=== PATIENT | male | born 1990 | race Caucasian/White ===

== ENCOUNTER 2020-12-10 18:30 | Observation (INO) | payer BC, SELFPAY ==
[2020-12-10 18:34] VITALS: BP 143/86; PULSE 113; RESP 18; TEMP 37.2; O2SAT 97; BMI 30.8
--- NOTE | 2020-12-10 18:41 | XRR_ITS ---
PROCEDURE INFORMATION: Exam: XR Chest Exam date and time: 12/10/2020 6:43 PM Age: 30 years old Clinical indication: Other: Seizure TECHNIQUE: Imaging protocol: XR of the chest Views: 1 view. Total images: 1 COMPARISON: CT chest w con* [id number] 07/21/2017 9:32 PM FINDINGS: Lungs: Unremarkable. No consolidation. Pleural spaces: Unremarkable. No pleural effusion. No pneumothorax. Heart/Mediastinum: Unremarkable. No cardiomegaly. Bones/joints: Unremarkable. XR/XR chest 1V portable [id number] IMPRESSION: No acute findings.
--- NOTE | 2020-12-10 18:41 | ECG_ITS ---
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 Measurements Intervals [place] Rate: 114 P: 36 ME: 170 QRS: 21 QRSD: 86 T: 32 QT: 339 QTc: 469 Interpretive Statements SINUS TACHYCARDIA Compared to ECG 07/21/2017 21:56:21 No significant changes Electronically Signed On 12-10-2020 19:25:07 INPATIENT SERVICES RN by Haja Choudhury M.D. [id number]
--- NOTE | 2020-12-10 18:41 | CTR_ITS ---
PROCEDURE INFORMATION: Exam: CT Head Without Contrast Exam date and time: 12/10/2020 7:17 PM Age: 30 years old Clinical indication: Other: Seizure TECHNIQUE: Imaging protocol: Computed tomography of the head without contrast. Total images: 207 Radiation optimization: All CT scans at this facility use at least one of these dose optimization techniques: automated exposure control; mA and/or kV adjustment per patient size (includes targeted exams where dose is matched to clinical indication); or iterative reconstruction. COMPARISON: CT head wo con* [id number] 07/21/2017 9:22 PM RADIATION DOSE METRICS: Total DLP (mGy-cm): 949.46 FINDINGS: Brain: Normal. No hemorrhage. Unremarkable white matter. No mass effect. Cerebral ventricles: No ventriculomegaly. Bones/joints: Suspected old right medial orbital wall fracture. 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 Paranasal sinuses: Visualized sinuses are unremarkable. No fluid levels. Mastoid air cells: Visualized mastoid air cells are well aerated. Soft tissues: Unremarkable. CT/CT head wo con* [id number] IMPRESSION: No evidence of active or acute intracranial pathologic process, hemorrhage, or trauma. Radiation Dose CTDIVOL = (mGy): DLP = 949.46 (mGy-cm)
[2020-12-10 19:38] LABS: Basophils % 0.2 %; Eosinophils % 0.2 %; Hematocrit 37.9 % (42.0-52.0); Hemoglobin 13.1 g/dL (11.7-16.6); Lymphocytes # 0.7 10^3/uL (0.8-4.8); Lymphocytes % 13.6 %; Mean Corpuscular HGB Conc 34.6 g/dL (30.0-36.0); Mean Corpuscular Hemoglobin 34.5 pg (28.0-34.0); Mean Corpuscular Volume 99.7 fL (80-94); Mean Platelet Volume 11.6 fL (7.4-10.4); Monocytes # 0.4 10^3/uL (0.2-0.9); Monocytes % 7.5 %; Neutrophils # 3.99 10^3/uL (1.8-7.7); Neutrophils % 78.3 %; Nucleated Red Blood Cells % 0 %; Platelet Count 111 10^3/cmm (130-400); Red Cell Distribution Width 15.9 % (12.1-15.1); White Blood Count 5.1 10^3/uL (4.0-10.0)
[2020-12-10] MEDS: folic acid 1 MG, multivitamin inj 10 ML, thiamine 100 MG in sodium chloride 0.9% 1,000 ML 252.8 MG IV (19:40)
[2020-12-10 19:58] LABS: Lactate (Lactic Acid level) 1.9 mmol/L (0.5-2.2)
[2020-12-10 20:08] LABS: Alanine Aminotransferase 67 U/L (0-41); Albumin Level 4.6 g/dL (3.5-5.2); Alkaline Phosphatase 202 IU/L (40-130); Blood Urea Nitrogen 13 mg/dL (6-20); C Reactive Protein 2.7 mg/L (0.0-4.9); Calcium 8.5 mg/dL (8.5-10.5); Carbon Dioxide 25 mmol/L (22-29); Chloride 92 mmol/L (98-107); Creatine Phosphokinase 176 U/L (39-308); Globulin 2.5 g/dL (1.3-4.6); Glomerular Filtration Rate 97.8 mL/min (90-130); Glucose 108 mg/dL (65-115); Lipase 47 U/L (13-60); Magnesium 1.2 mg/dL (1.7-2.3); Osmolality Calculated 277 mOsm/kg (285-295); Sodium 133 mmol/L (136-145); Thyroid Stimulating Hormone 2.74 uIU/mL (0.27-4.20); Total Bilirubin 1.5 mg/dL (0.15-1.2); Total Protein 7.1 g/dL (6.6-8.7)
[2020-12-10 20:09] LABS: Alcohol Level < 10 mg/dL (0-10)
[2020-12-10 20:10] LABS: Anion Gap 19.1 (5-19); Aspartate Amino Transferase 110 U/L (0-40); Potassium 3.1 mmol/L (3.5-5.1); Slide Review Slide Review Perform
[2020-12-10 20:18] LABS: Add Urine Microscopic? NO
[2020-12-10 20:20] LABS: Bilirubin Urine 1+ (Negative); Blood Urine Neg (Negative); Glucose Urine UA Norm (Normal); Ketones Urine Negative (Negative); Leukocyte Esterase Urine Negative (Negative); Nitrate Urine Negative (Negative); Protein Urine Neg (Negative); Urine Appearance Clear (CLEAR); Urine Color Yellow (Yellow); Urobilinogen Urine 4 mg/dL (Negative); pH Urine 7 (5-7)
[2020-12-10 20:28] LABS: Amphetamines Screen Urine Negative (Negative); Barbiturates Screen Urine Negative (Negative); Benzodiazepines Screen Urine Negative (Negative); Cocaine Screen Urine Negative (Negative); Opiate Screen Urine Negative (Negative); PCP Screen Urine Negative (Negative); THC Screen Urine Negative (Negative)
[2020-12-10 20:35] LABS: Ketone (Acetest) Serum Negative (Negative)
[2020-12-10 20:39] VITALS: BP 131/89; PULSE 87; O2SAT 98
--- NOTE | 2020-12-10 20:40 | P.HP_ITS ---
Providers/Chief Complaint Primary Care Provider: JIGNESH Baez Chief Complaint: SEIZURE History of Present Illness Dave Gaston is a 30 year old male with a history of daily alcohol intake was brought to the emergency department because patient had a seizure at the grocery store. Patient stated he woke up in an ambulance. He bit his tongue during the seizure, no urine or stool incontinence. Patient has no history of seizures. Reports drinking about 20 shots of hard liquor every day. He denied any history of alcohol withdrawal and stated there has been an instance where he did not drink for up to 7 days and did not experience any withdrawal symptoms. He stated his last alcohol drink was 4 days ago and he has been trying to quit drinking. His alcohol level in the ED was negative, ketones negative. Patient is hospitalized for further management of alcohol withdrawal seizures. Review of Systems Narrative: Except as documented, all other systems reviewed and negative Medications/Allergies Home Medications Medication Instructions Recorded Confirmed Last Taken Type No Known Home Medications 12/10/20 12/10/20 Unknown History Allergies Allergy/AdvReac Type Severity Reaction Status Date / Time No Known Allergies Allergy Verified 10/04/20 09:09 PFSH Acute PFSH: Medical History (Reviewed 12/10/20 @ 21:59 by Angelina Davalos MD, [facility] [place]) Anxiety Depression HTN (hypertension) Family History (Reviewed 12/10/20 @ 21:59 by Angelina Davalos MD, [facility] [place]) Father Alcoholic Other CAD (coronary artery disease) Cancer Social History (Reviewed 12/10/20 @ 21:59 by Angelina Davalos MD, [facility] [place]) Smoking and tobacco status: current every day smoker Alcohol intake: current Vitals/I&O/Wt Last Vital Signs Temp 98.9 F 12/10/20 18:34 Pulse 87 12/10/20 20:39 Resp 18 12/10/20 18:34 BP 131/89 12/10/20 20:39 Pulse Ox 98 12/10/20 20:39 Weight last 48 hrs Weight 97.522 kg Physical Exam Const: COMMON NORMALS: no acute distress, patient oriented x3 and well nourished HENMT: COMMON NORMALS: normocephalic, atraumatic, moist oral mucous membranes and oropharynx normal Eye: COMMON NORMALS: Equal, round and reactive pupils present, EOMs intact bilaterally, conjunctivae normal and no scleral icterus Neck/C-Spine: COMMON NORMALS: full ROM and no lymphadenopathy Lymph: LYMPHATIC: no lymphadenopathy noted Chest: COMMONS NORMALS: normal inspection of the chest CHEST: Yes Symmetrical chest wall rise Resp: COMMON NORMALS: normal respiratory effort, No retractions, No use of acc essory muscles and clear to auscultation bilaterally Cardio: COMMON NORMALS: regular rate, regular rhythm, S1 normal heart sound present, S2 normal heart sound present and No murmurs present (Cardio) GI: COMMON NORMALS: Normal to inspection, nondistended, normoactive bowel sounds present, Soft to palpation, non-tender, No hepatosplenomegaly present and no bruits : COMMON NORMALS: Yes no CVA tenderness Back/Pelvis: COMMON NORMALS: no thoracic nor lumbar tenderness and thoraco- lumbar ROM normal Extremity: COMMON NORMALS: normal to inspection, no clubbing, cyanosis or edema, no calf tenderness and no pedal edema Neuro: COMMON NORMALS: patient oriented x3, CN's II-XII intact bilaterally and no focal motor deficits Psych: COMMON NORMALS: Normal thought process present and cooperative APPEARANCE: Yes grossly normal Skin: COMMON NORMALS: no rashes or lesions noted, turgor normal and no jaundice Data : 12/10/20 19:33 12/10/20 19:33 A&P Assessment and plan (1) Alcohol withdrawal seizure: Status: Acute (2) Chronic alcohol dependence, continuous: Status: Acute (3) Hyponatremia: Status: Acute (4) Elevated LFTs: Status: Acute Additional A&P Information Placed under observation. IV hydration with normal saline/banana bag. Thiamine and folic acid supplementation. Initiate CIWA with Ativan as needed for alcohol withdrawal symptoms. Start oral Keppra for seizure prophylaxis. Hyponatremia likely alcohol induced. 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 Obtain liver ultrasound. Monitor blood chemistry, magnesium and phosphorus and replace as needed. Attestations Medical Necessity Statement*: Patient presented with alcohol withdrawal seizures. He needs to be hospitalized for monitoring and management of new onse t seizures. He is expected to spend less than 2 midnights. Coding Level of Care Code Acute Executive Chairman for [facility] Fwd Exam Comprehensive Diagnoses Alcohol withdrawal seizure F10.239; R56.9 Chronic alcohol dependence, continuous F10.20 Hyponatremia E87.1 Elevated LFTs R79.89
--- NOTE | 2020-12-10 21:54 | ED_ITS ---
HPI - Seizure General: Chief Complaint: Seizure Stated Complaint: SEIZURE Time Seen by Provider: 12/10/20 18:33 Source: patient and EMS Mode of arrival: EMS Limitations: no limitations History of Present Illness: HPI Narrative: Patient is a 30-year-old male with no prior history of seizures or any medical illness presents to the emergency department after a seizure episode. Patient is an alcoholic and drinks about 1/5 of whiskey every day until about 4 days ago. His daughter has been with him for the last 4 days that he did not want her to see him drinking so he has not drank since then. While he was at the store he had a seizure episode. He is back to his baseline. No fever, no prior head injuries. No difficulty breathing or chest pain. MD complaint: seizure Onset (ago): minute(s) (30) Description of Episode: tonic-clonic movement Duration of episode: 1 -: minutes(s) Witnessed: Yes - by Bystander Trauma: No Seizure History: No Place: Transfer To Possible Precipitating Event: alcohol withdrawal Associated symptoms: Deny chest pain, chills, confusion, cough, diaphoresis, fever(s), anorexia, malaise, rash, short of breath, syncope or weakness Treatments prior to arrival: none Review of Systems General: Reports: 10 or more systems reviewed and unremarkable except in HPI and below Const: Denies: fever(s), chills, malaise or diaphoresis Eyes: Denies: change in vision or blurry vision ENMT: Denies: throat pain, enlarged tonsils, odynophagia, hoarseness, mouth pain or swelling of lips/tongue Card: Denies: chest pain or syncope Resp: Denies: dyspnea, productive cough or non-productive cough GI: Denies: abdominal pain, nausea or vomiting : Denies: flank pain, dysuria, urinary frequency, urinary urgency or urinary hesitancy Musc: Denies: neck pain, back pain or extremity swelling Skin/Breast: Denies: rash, pruritus or erythema Neuro: Denies: confusion Endo: Denies: polyuria, polydipsia or tired all the time [facility] ED PFSH: Medical History Anxiety Depression HTN (hypertension) Family History Father Alcoholic Other CAD (coronary artery disease) Cancer Social History Smoking and tobacco status: current every day smoker Alcohol intake: current Physical Exam Const: COMMON NORMALS: no acute distress, average body habitus, patient oriented x3, no limitations, healthy appearing, alert and well nourished HENMT: COMMON NORMALS: normocephalic, atraumatic and moist oral mucous membranes HEAD & SCALP: normocephalic and atraumatic Eye: COMMON NORMALS: Equal, round and reactive pupils present, EOMs intact bilaterally, conjunctivae normal and no scleral icterus CONJUNCTIVA: Yes conjunctivae normal PUPIL: Yes Equal, round and reactive pupils present Neck/C-Spine: COMMON NORMALS: full ROM, supple, no meningeal signs, no JVD and No carotid bruits Chest: COMMONS NORMALS: normal inspection of the chest and normal palpation of entire chest wall Resp: COMMON NORMALS: normal respiratory effort, No retractions, No use of accessory muscles, clear to auscultation bilaterally and percussion normal AUSCULTATION: clear to auscultation bilaterally PERCUSSION: percussion normal Cardio: COMMON NORMALS: no JVD, regular rhythm, S1 normal heart sound present, S2 normal heart sound present, No gallops present (Cardio), No clicks present (Cardio), No murmurs present (Cardio), No rub (Cardio) and Peripheral pulses 2+ throughout RATE: tachycardic RHYTHM: regular rhythm HEART SOUNDS: S1 normal heart sound present and S2 normal heart sound present PERIPHERAL PULSES: Peripheral pulses 2+ throughout GI: COMMON NORMALS: Normal to inspection, nondistended, normoactive bowel sounds present, Soft to palpation, non-tender, No hepatosplenomegaly present, no masses and no bruits PALPATION: Yes Soft to palpation and Yes No hepatosplenomegaly present Extremity: COMMON NORMALS: normal to inspection, full ROM, capillary refill normal, no calf tenderness and no pedal edema Neuro: COMMON NORMALS: patient oriented x3 SENSORIUM/ORIENTATION: Yes alert MENINGEAL SIGNS: Yes no meningeal signs Skin: COMMON NORMALS: no rashes or lesions noted, no wounds, turgor normal, no jaundice, no petechiae and no mottling GENERAL SKIN EXAM: no rashes or lesions noted and turgor normal Course Consultations: Consultation #1: Discussed the patient with Dr. Mehta, hospitalist and he kindly accepted the patient to his service. Time: 20:30 Vital Signs: Vital signs: Vital Signs Temperature 98.9 F 12/10/20 18:34 Pulse Rate 87 12/10/20 20:39 Respiratory Rate 18 12/10/20 18:34 Blood Pressure 131/89 12/10/20 20:39 Pulse Oximetry 98 12/10/20 20:39 MDM - Seizure MDM Narrative: Medical decision making narrative: 30-year-old male who presents to the emergency department following an alcohol withdrawal seizure. Is a chronic alcoholic and has not drank for about 4 days because his daughter is with him. Because he is high risk he is admitted to the hospital for further evaluation and management. In the emergency department he had mild hyponatremia and hypokalemia as well as mild transaminitis and mildly elevated bilirubin. He is admitted for further evaluation and management. Medical Records: Attestation: I reviewed the patient's medical records. Lab Data: Attestation: I reviewed the patient's lab results. Labs: Lab Results 12/10/20 12/10/20 12/10/20 Range/Units 19:32 19:33 19:33 WBC 5.1 (4.0-10.0) 10^3/ uL RBC 3.80 L (4.1-5.3) 10^6/u L Hgb 13.1 (11.7-16.6) g/dL Hct 37.9 L (42.0-52.0) % MCV 99.7 H (80-94) fL MCH 34.5 H (28.0-34.0) pg MCHC 34.6 (30.0-36.0) g/dL RDW 15.9 H (12.1-15.1) % Plt Count 111 L (130-400) 10^3/c mm MPV 11.6 H (7.4-10.4) fL Neut % (Auto) 78.3 % Lymph % (Auto) 13.6 % [place] % (Auto) 7.5 % Eos % (Auto) 0.2 % Baso % (Auto) 0.2 % Neut # (Auto) 3.99 (1.8-7.7) 10^3/u L Lymph # (Auto) 0.7 L (0.8-4.8) 10^3/u L [place]y # (Auto) 0.4 (0.2-0.9) 10^3/u L Eos # (Auto) 0.0 (0.0-0.8) 10^3/u L Baso # (Auto) 0.0 (0.0-0.1) 10^3/u L Nucleated RBC % (a uto) 0 % Nucleated RBCs # 0.0 /100WBC Sodium 133 L (136-145) mmol/L Potassium 3.1 L (3.5-5.1) mmol/L Chloride 92 L (98-107) mmol/L Carbon Dioxide 25 (22-29) mmol/L Anion Gap 19.1 H (5-19) BUN 13 (6-20) mg/dL Creatinine 0.9 (0.7-1.2) mg/dL GFR Calculation 97.8 (90-130) mL/min Glucose 108 (65-115) mg/dL Calculated Osmolal ity 277 L (285-295) mOsm/k g Lactate (0.5-2.2) mmol/L Calcium 8.5 (8.5-10.5) mg/dL Magnesium 1.2 L (1.7-2.3) mg/dL Total Bilirubin 1.5 H (0.15-1.2) mg/dL AST 110 H (0-40) U/L ALT 67 H (0-41) U/L Alkaline Phosphata se 202 H (40-130) IU/L Creatine Kinase 176 (39-308) U/L C-Reactive Protein 2.7 (0.0-4.9) mg/L Total Protein 7.1 (6.6-8.7) g/dL Albumin 4.6 (3.5-5.2) g/dL Globulin 2.5 (1.3-4.6) g/dL Lipase 47 (13-60) U/L TSH 2.74 (0.27-4.20) uIU/ mL Urine Color (Yellow) Urine Appearance (CLEAR) Urine pH (5-7) Ur Specific Gravit y (1.005-1.030) Urine Protein (Negative) Urine Glucose (UA) (Normal) Urine Ketones (Negative) Urine Blood (Negative) Urine Nitrate (Negative) Urine Bilirubin (Negative) Urine Urobilinogen (Negative) mg/dL Ur Leukocyte Bety ase (Negative) Urine Opiates Scre en (Negative) ng/mL Ur Barbiturates Sc reen (Negative) ng/mL Ur Phencyclidine S crn (Negative) ng/mL Ur Amphetamines Sc reen (Negative) ng/mL U Benzodiazepines Scrn (Negative) ng/mL Urine Cocaine Scre en (Negative) ng/mL U Marijuana (THC) Screen (Negative) ng/mL Ethyl Alcohol < 10 (0-10) mg/dL Serum Ketones Negative (Negative) 12/10/20 12/10/20 12/10/20 Range/Units 19:33 19:58 19:58 WBC (4.0-10.0) 10^3/ uL RBC (4.1-5.3) 10^6/u L Hgb (11.7-16.6) g/dL Hct (42.0-52.0) % MCV (80-94) fL MCH (28.0-34.0) pg MCHC (30.0-36.0) g/dL RDW (12.1-15.1) % Plt Count (130-400) 10^3/c mm MPV (7.4-10.4) fL Neut % (Auto) % Lymph % (Auto) % [place] % (Auto) % Eos % (Auto) % Baso % (Auto) % Neut # (Auto) (1.8-7.7) 10^3/u L Lymph # (Auto) (0.8-4.8) 10^3/u L [place] # (Auto) (0.2-0.9) 10^3/u L Eos # (Auto) (0.0-0.8) 10^3/u L Baso # (Auto) (0.0-0.1) 10^3/u L Nucleated RBC % (a uto) % Nucleated RBCs # /100WBC Sodium (136-145) mmol/L Potassium (3.5-5.1) mmol/L Chloride (98-107) mmol/L Carbon Dioxide (22-29) mmol/L Anion Gap (5-19) BUN (6-20) mg/dL Creatinine (0.7-1.2) mg/dL GFR Calculation (90-130) mL/min Glucose (65-115) mg/dL Calculated Osmolal ity (285-295) mOsm/k g Lactate 1.9 (0.5-2.2) mmol/L Calcium (8.5-10.5) mg/dL Magnesium (1.7-2.3) mg/dL Total Bilirubin (0.15-1.2) mg/dL AST (0-40) U/L ALT (0-41) U/L Alkaline Phosphata se (40-130) IU/L Creatine Kinase (39-308) U/L C-Reactive Protein (0.0-4.9) mg/L Total Protein (6.6-8.7) g/dL Albumin (3.5-5.2) g/dL Globulin (1.3-4.6) g/dL Lipase (13-60) U/L TSH (0.27-4.20) uIU/ mL Urine Color Yellow (Yellow) Urine Appearance Clear (CLEAR) Urine pH 7 (5-7) Ur Specific Gravit y 1.000 L (1.005-1.030) Urine Protein Neg (Negative) Urine Glucose (UA) Norm (Normal) Urine Ketones Negative (Negative) Urine Blood Neg (Negative) Urine Nitrate Negative (Negative) Urine Bilirubin 1+ H (Negative) Urine Urobilinogen 4 H (Negative) mg/dL Ur Leukocyte Bety ase Negative (Negative) Urine Opiates Scre en Negative (Negative) ng/mL Ur Barbiturates Sc reen Negative (Negative) ng/mL Ur Phencyclidine S crn Negative (Negative) ng/mL Ur Amphetamines Sc reen Negative (Negative) ng/mL U Benzodiazepines Scrn Negative (Negative) ng/mL Urine Cocaine Scre en Negative (Negative) ng/mL U Marijuana (THC) Screen Negative (Negative) ng/mL Ethyl Alcohol (0-10) mg/dL Serum Ketones (Negative) Imaging Data^: CXR: Attestation: I personally reviewed and interpreted this imaging study as follows: Radiologist's impression: [address] [address] XRay Report Signed Patient: Dave Gaston #: [id number] : 1990Acct#:[id number] Age/Sex: 30 / MADM Date: 12/10/20 Loc: ERRoom/Bed: Attending Dr: Ordering Provider/Ordering MD: Angelina Davalos MD, [facility] Date of Service: 12/10/20 Procedure(s): XR chest 1V portable [id number] Accession Number(s): [id number] Report Number: [id number] PROCEDURE INFORMATION: Exam: XR Chest Exam date and time: 12/10/2020 6:43 PM Age: 30 years old Clinical indication: Other: Seizure TECHNIQUE: Imaging protocol: XR of the chest Views: 1 view. Total images: 1 COMPARISON: CT chest w con* [id number] 07/21/2017 9:32 PM FINDINGS: Lungs: Unremarkable. No consolidation. Pleural spaces: Unremarkable. No pleural effusion. No pneumothorax. Heart/Mediastinum: Unremarkable. No cardiomegaly. Bones/joints: Unremarkable. XR/XR chest 1V portable [id number] IMPRESSION: No acute findings. Dictated By:Richard Silvestre Signed By:Gabino Silvestre Date/Time:12/10/201913 DD/ 12 CT Head: Attestation: I personally reviewed and interpreted this imaging study as follows: Radiologist's impression: [address] [address] [address] Scan Report Signed Patient: Dave Gaston #: [id number] : 1990Acct#:[id number] Age/Sex: 30 / MADM Date: 12/10/20 Loc: ERRoom/Bed: Attending Dr: Ordering Provider/Ordering MD: Angelina Davalos MD, [facility] Date of Service: 12/10/20 Procedure(s): CT head wo con* [id number] Accession Number(s): [id number] Report Number: [id number] PROCEDURE INFORMATION: Exam: CT Head Without Contrast Exam date and time: 12/10/2020 7:17 PM Age: 30 years old Clinical indication: Other: Seizure TECHNIQUE: Imaging protocol: Computed tomography of the head without contrast. Total images: 207 Radiation optimization: All CT scans at this facility use at least one of these dose optimization techniques: automated exposure control; mA and/or kV adjustment per patient size (includes targeted exams where dose is matched to clinical indication); or iterative reconstruction. COMPARISON: CT head wo con* [id number] 07/21/2017 9:22 PM RADIATION DOSE METRICS: Total DLP (mGy-cm): 949.46 FINDINGS: Brain: Normal. No hemorrhage. Unremarkable white matter. No mass effect. Cerebral ventricles: No ventriculomegaly. Bones/joints: Suspected old right medial orbital wall fracture. 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 Paranasal sinuses: Visualized sinuses are unremarkable. No fluid levels. Mastoid air cells: Visualized mastoid air cells are well aerated. Soft tissues: Unremarkable. CT/CT head wo con* [id number] IMPRESSION: No evidence of active or acute intracranial pathologic process, hemorrhage, or trauma. Radiation Dose CTDIVOL = (mGy): DLP = 949.46 (mGy-cm) Dictated By:Richard Silvestre Signed By:Richard SilvestreSignjay Date/Time:12/10/201946 DD/ 44 EKG Data^: EKG 1: Attestation: I personally reviewed and interpreted this EKG as follows: EKG interpretation date: 12/10/20 EKG interpretation time: 19:03 Interpretation: Sinus tachycardia Heart rate 114 bpm Normal axis. No ST changes. Discharge Plan Discharge Patient Disposition: Placed in Observation Admit Provider: Pramod Mehta Clinical Impression: Chronic alcohol dependence, continuous, Hyponatremia, Elevated LFTs, Acute hypokalemia Alcohol withdrawal seizure Qualifiers: Complication of substance-induced condition: uncomplicated Qualified Code(s): F10.230 - Alcohol dependence with withdrawal, uncomplicated Coding Level of Care Code ED [employer] Specialist for [employer]
[2020-12-10 22:00] VITALS: BP 151/104; PULSE 92; RESP 18; O2SAT 98
[2020-12-10] MEDS: famotidine 20 mg/2 mL INJ IVP (23:06)
[2020-12-10 23:10] VITALS: BP 140/97; PULSE 95; RESP 18; TEMP 36.9; O2SAT 97
[2020-12-10] MEDS: enoxaparin 40 mg/0.4 mL Syringe SUBCUT (23:57)
[2020-12-11] VITALS (7 sets, daily range): BP systolic 120–162; BP diastolic 74–99; PULSE 91–107; RESP 17–18; TEMP 36.6–37.2; O2SAT 94–98
[2020-12-11 07:13] LABS: Basophils % 0.3 %; Eosinophils % 0.5 %; Hematocrit 33.6 % (42.0-52.0); Hemoglobin 11.6 g/dL (11.7-16.6); Lymphocytes # 1.2 10^3/uL (0.8-4.8); Lymphocytes % 31.1 %; Mean Corpuscular HGB Conc 34.5 g/dL (30.0-36.0); Mean Corpuscular Hemoglobin 35.2 pg (28.0-34.0); Mean Corpuscular Volume 101.8 fL (80-94); Mean Platelet Volume 12.2 fL (7.4-10.4); Monocytes # 0.4 10^3/uL (0.2-0.9); Monocytes % 10.3 %; Neutrophils # 2.19 10^3/uL (1.8-7.7); Neutrophils % 57.8 %; Nucleated Red Blood Cells % 0 %; Platelet Count 115 10^3/cmm (130-400); Red Cell Distribution Width 15.9 % (12.1-15.1); White Blood Count 3.8 10^3/uL (4.0-10.0)
[2020-12-11 07:44] LABS: Anion Gap 14.6 (5-19); Blood Urea Nitrogen 10 mg/dL (6-20); Calcium 8.4 mg/dL (8.5-10.5); Carbon Dioxide 28 mmol/L (22-29); Chloride 96 mmol/L (98-107); Chol HDL Ratio 3.28 mg/dL (1.0-5.00); Cholesterol 141 mg/dL (0-200); Glucose 94 mg/dL (65-115); HDL Cholesterol 43 mg/dL (60-100); LDL Cholesterol Calculated 72 mg/dL (50-129); LDL HDL Ratio 1.67 RATIO (0.00-3.22); Magnesium 1.2 mg/dL (1.7-2.3); Osmolality Calculated 281 mOsm/kg (285-295); Phosphorus 2.5 mg/dL (2.5-4.5); Sodium 136 mmol/L (136-145); Thyroid Stimulating Hormone 2.56 uIU/mL (0.27-4.20); Triglycerides 129 mg/dL (0-150)
[2020-12-11 07:48] LABS: Potassium 2.6 mmol/L (3.5-5.1)
[2020-12-11] MEDS: folic acid 1 mg Tablet PO (08:13)
[2020-12-11] MEDS: thiamine 100 mg Tablet PO (08:13)
[2020-12-11] MEDS: multivitamin therapeutic Tablet 1 TAB PO (08:13)
[2020-12-11] MEDS: levETIRAcetam 500 mg Tablet PO ×2 (08:13→18:08)
[2020-12-11] MEDS: potassium chloride ER 20 mEq Tablet 40 MEQ PO ×2 (08:14→18:34)
[2020-12-11 08:32] LABS: Estmated Average Glucose 85; Hemoglobin A1C 4.6 % (4.0-6.0)
[2020-12-11] MEDS: magnesium sulfate premix 4 GM/100 ML PREMIX IV (09:02)
[2020-12-11] MEDS: famotidine 20 mg/2 mL INJ IVP (10:15)
[2020-12-11 17:59] LABS: Alanine Aminotransferase 56 U/L (0-41); Albumin Level 4.5 g/dL (3.5-5.2); Alkaline Phosphatase 172 IU/L (40-130); Aspartate Amino Transferase 96 U/L (0-40); Blood Urea Nitrogen 8 mg/dL (6-20); Calcium 9.3 mg/dL (8.5-10.5); Carbon Dioxide 26 mmol/L (22-29); Chloride 100 mmol/L (98-107); Globulin 2.7 g/dL (1.3-4.6); Glomerular Filtration Rate 77.6 mL/min (90-130); Glucose 104 mg/dL (65-115); Magnesium 2.1 mg/dL (1.7-2.3); Osmolality Calculated 285 mOsm/kg (285-295); Sodium 138 mmol/L (136-145); Total Protein 7.2 g/dL (6.6-8.7)
[2020-12-11 18:18] LABS: Anion Gap 14.8 (5-19)
[2020-12-11 18:22] LABS: Potassium 2.8 mmol/L (3.5-5.1)
--- NOTE | 2020-12-11 19:40 | PC.NURSE ---
removed IV, cath tip intact. bleeding controlled with 2x2. went over discharge instructions with patient, patient verbalized understanding. ambulated with patient downstairs to private vehicle where patient left the premises.
--- NOTE | 2020-12-11 21:15 | PM.DCS ---
Discharge Providers Date of Admission: 12/10/20 20:57 Date of Discharge: December 11, 2020 Attending Provider at Admission: Pramod Mehta Attending Provider at Discharge: Salvador Kim Primary Care Provider: JIGNESH Baez Diagnoses at Discharge Discharge Diagnosis (1) Alcohol withdrawal seizure: Status: Acute Qualifiers: Complication of substance-induced condition: uncomplicated Qualified Code(s): F10.230 - Alcohol dependence with withdrawal, uncomplicated; R56.9 - Unspecified convulsions (2) Chronic alcohol dependence, continuous: Status: Acute (3) Hyponatremia: Status: Acute (4) Elevated LFTs: Status: Acute Reason for Visit Reason for Visit: SEIZURE Hospital Course Hospital Course 30-year-old gentleman chronic alcoholic, with episodes of binge drinking, after which he stops, reportedly had not been drinking for about 4 days at which point suffered a seizure at a grocery store, and was brought in for evaluation to ER. He was observed overnight and during the day following the seizure. He was initiated on Keppra. Monitored per CIWA protocol. Received replacement of severe electrolyte deficiencies, with hypomagnesemia, hypokalemia. Received thiamine, folic acid, multivitamins. In the morning he initially was confused as to where he was, thinking that the ambulance had taken him to [place]. He also seemed to not relate the timing of episodes correctly, thinking that he had had a seizure a week previously. He identified the year and the month correctly. Was able to provide his other more long-term history. After discussion the morning of the timing of events, and his whereabouts, he confirmed these correctly again in the evening. His CIWA scores remained low, 2-5. CT of the head showed no acute pathologic process. He had mild leukopenia, 3.8, thrombocytopenia, 115,000, anemia 11.6, possibly secondary to alcohol induced bone marrow suppression, but without signs of sepsis. He felt well through the day. Ambulated. He requested assistance in seeking rehabilitation as he felt his drinking problem was out of control and dangerous to his health and life. He was seen by the rn field case manager who provided him with options, although since it is a weekend there was not a place available with intake today. She had also provided him with her number so he could call her on Sunday for assistance if he needed with setting up intake to one of the places. As he was feeling well, had no further seizure, no signs of persistent withdrawal, he was discharged from the hospital at his request after observation through the day, reassessment of mental status and electrolytes, and after discussion also with his brother. They were both in agreement that it would be the safest for him to stay with his brother until he is feeling well and until he is able to arrange for rehabilitation for himself. He verbalized he understood that staying at home he may be at risk of additional events, confusion, or seizure, and was able to restate the risks, including . He understands that further alcohol intake may be risking additional complications, with possible life-threatening complications from intoxication, withdrawal. We also discussed regarding longer-term complications given severity of his electrolyte disturbances, but also risk of vitamin deficiencies, chronic encephalopathy and dementia, among other risks including gastritis, GI bleeding, liver cirrhosis. He verbalizes understanding to abstain from alcohol, and to continue vitamin supplementation after discharge. We discussed with his brother also red flags to watch out for and to call 911 in case of any concerns. We discussed with both, and both with agreeable to proceed with additional follow-up with outpatient MRI, outpatient EEG, and follow-up with neurology. Please follow-up his liver function parameters which were elevated in the hospital, but with improvement, in addition to safe resolution of alcohol withdrawal, seizure, and electrolyte deficiencies and recovery of blood counts/alcohol induced bone marrow suppression. Please follow-up on smoking. Physical Exam Const: COMMON NORMALS: no acute distress and patient oriented x3 (Initially oriented x2, reoriented well.) OTHER: Sometimes rushing with his answers, but overall exhibits persistence of good orientation after reoriented in the morning, and insight into his condition. He is able to teach back that recommended additional work-up and follow-up and the risks of his conditions. HENMT: COMMON NORMALS: oropharynx normal Neck/C-Spine: COMMON NORMALS: no JVD Resp: COMMON NORMALS: normal respiratory effort and clear to auscultation bilaterally AUSCULTATION: clear to auscultation bilaterally Cardio: COMMON NORMALS: no JVD, regular rhythm, S1 normal heart sound present, S2 normal heart sound present and No murmurs present (Cardio) RHYTHM: regular rhythm HEART SOUNDS: S1 normal heart sound present and S2 normal heart sound present GI: COMMON NORMALS: Normal to inspection, nondistended, normoactive bowel sounds present, Soft to palpation and non-tender PALPATION: Yes Soft to palpation Extremity: COMMON NORMALS: no joint enlargement and no pedal edema Neuro: COMMON NORMALS: patient oriented x3 (Initially oriented x2, reoriented well.) and moves all extremities Skin: COMMON NORMALS: no rashes or lesions noted GENERAL SKIN EXAM: no rashes or lesions noted Discharge Data Data Completed and Pending: Completed Studies During Hospitalization Category Date Time Status CT head wo con* [id number] Urgent Cat Scan 12/10/20 18:41 Completed XR chest 1V rafaela ble [id number] Urgent Exams 12/10/20 18:41 Completed Labs from last 24 hours 12/11/20 12/11/20 12/11/20 17:05 06:28 06:28 WBC RBC Hgb Hct MCV MCH MCHC RDW Plt Count MPV Neut % (Auto) Lymph % (Auto) [place] % (Auto) Eos % (Auto) Baso % (Auto) Neut # (Auto) Lymph # (Auto) [place] # (Auto) Eos # (Auto) Baso # (Auto) Nucleated RBC % (a uto) Nucleated RBCs # Sodium 138 136 Potassium 2.8 L* 2.6 L* Chloride 100 96 L Carbon Dioxide 26 28 Anion Gap 14.8 14.6 BUN 8 10 Creatinine 1.1 0.8 GFR Calculation 77.6 L 112.0 Glucose 104 94 Estimat Average Gl ucose 85 Hemoglobin A1c 4.6 Calculated Osmolal ity 285 281 L Calcium 9.3 8.4 L Phosphorus 2.5 Magnesium 2.1 1.2 L Total Bilirubin 1.0 AST 96 H ALT 56 H Alkaline Phosphata se 172 H Total Protein 7.2 Albumin 4.5 Globulin 2.7 Triglycerides 129 Cholesterol 141 LDL Cholesterol, C alc 72 HDL Cholesterol 43 L LDL/HDL Ratio 1.67 Cholesterol/HDL Ra rick 3.28 TSH 2.56 12/11/20 06:28 WBC 3.8 L RBC 3.30 L Hgb 11.6 L Hct 33.6 L MCV 101.8 H MCH 35.2 H MCHC 34.5 RDW 15.9 H Plt Count 115 L MPV 12.2 H Neut % (Auto) 57.8 Lymph % (Auto) 31.1 [place] % (Auto) 10.3 Eos % (Auto) 0.5 Baso % (Auto) 0.3 Neut # (Auto) 2.19 Lymph # (Auto) 1.2 [place] # (Auto) 0.4 Eos # (Auto) 0.0 Baso # (Auto) 0.0 Nucleated RBC % (a uto) 0 Nucleated RBCs # 0.0 Sodium Potassium Chloride Carbon Dioxide Anion Gap BUN Creatinine GFR Calculation Glucose Estimat Average Gl ucose Hemoglobin A1c Calculated Osmolal ity Calcium Phosphorus Magnesium Total Bilirubin AST ALT Alkaline Phosphata se Total Protein Albumin Globulin Triglycerides Cholesterol LDL Cholesterol, C alc HDL Cholesterol LDL/HDL Ratio Cholesterol/HDL Ra rick TSH Vitals: Last Vital Signs Temp 98.1 F 12/11/20 19:42 Pulse 91 12/11/20 19:42 Resp 17 12/11/20 19:42 BP 124/94 12/11/20 19:42 Pulse Ox 94 12/11/20 19:42 Discharge Plan Discharge Patient Disposition: Home Condition: Stable Prescriptions: New levetiracetam 500 mg Tablet 500 mg PO BID Qty: 60 RF: 0 folic acid 1 mg Tablet 1 mg PO DAILY Qty: 30 RF: 3 Vitamin B-1 (mononitrate) 100 mg Tablet 100 mg PO DAILY Qty: 30 RF: 3 Thera 400 mcg Tablet 1 tab PO DAILY Qty: 30 RF: 3 Klor-Con M20 20 mEq tablet,ER particles/crystals 20 meq PO DAILY Qty: 14 RF: 0 Discharge Orders: Discharge Order (Routine); Ordered 12/11/20 Ordered By: Salvador Kim Other Ambulatory Orders: EEG electroencephalogram (Routine) Timeframe: 1 Week Facility: [facility] - Location: Neurology Ordered By: Salvador Kim MR head w con [id number] (Routine) Timeframe: 1 Week Facility: [facility] - Location: Radiology [facility] Ordered By: Salvador Kim [facility] [employer] [facility] [Other] (She will contact you on Sunday, December 13, 2020 after contacting facilities. If you need to speak to her she can be reached at [phone] ext. [phone]) [facility] [Provider Group] - 1 week (Seizure) Gela Martins FNP [Primary Care Provider] - 4-7 days (Please call Sunday to schedule a follow up appointment.) Discharge Diet: Regular Discharge Activity: Increase activity as tolerated and Limit activity as instructed Patient Instructions: Alcohol Abuse, Potassium Chloride (By mouth), Thiamine (Vitamin B-1) (By mouth), Folic Acid (By mouth), Multivitamins, Adult Formula (By mouth), Levetiracetam (By mouth), Hypokalemia, Pancreatitis (DC), Alcohol Withdrawal (GEN), Seizures Activity Restrictions/Additional Instructions: Please stay as discussed with your brother until you are able to start rehabilitation. In case of any recurrent seizues, any confusion, or other concerning symptoms seek medical attention without delay. Please also follow up with EEG and MRI brain for additional assessment of the seizure and with neurology specialist. There are a variety of different options available to you to help you maintain your sobriety. There are even options to attend AA meetings virtually. These can be found at: https://aa.org/pages/en_[place]/meeting-guide Alcoholics Anonymous Meeting Schedule Sunday-6:00 p.m. [facility] [address] [place] [address] -11:00 a.m. [facility] Religious [facility] [address] [address] Sunday 6:00pm [facility] [address] [place] [address] [facility] [address] [address] [phone] Sunday 7pm closed group Sunday open book study noon open discussion Sundaypm open discussion Sunday noon closed discussion Sunday 12:30 open discussion [facility] [address] [place], [place] [id number] [place] [address] Sundaypm book study closed Discharge Attestations Time Spent in Discharge Care*: greater than 30 min Quality Metrics Clinical Quality Measures During this hospital stay, did patient experience: None Coding Level of Care Code Acute Central Office Worker for Chg Fwd Diagnoses Alcohol withdrawal seizure F10.230; R56.9 Complication of substance-induced condition: uncomplicated Chronic alcohol dependence, continuous F10.20 Hyponatremia E87.1 Elevated LFTs R79.89
--- NOTE | 2020-12-13 19:49 | PC.RESP ---
Smoking Cessation information sent to patient.
--- NOTE | 2020-12-29 09:45 | PC.SOCIAL ---
Followed up on concerns with orders at [place]. EEG was not sent to Dr James office per staff report. [employer] staff verified order while on phone with this nurse and will get him scheduled. Called [facility] about MRI and they cant to MRI of head without contrast5 needs with and without. Entered verbal order by Dr Kim for with and without code [id number]. Sent order to [facility] with verification fax was sent successfully. They will get him scheduled. Called patient to update him and he had received the date for 01/06/2021 at 10am. He will await call from [facility].
--- NOTE | 2021-01-03 10:55 | PC.SOCIAL ---
Per Tiffany to make note of called received by patient's insurance that the PA for MRI w/wo contrast was approved with code [id number]. I did notifiy centralized scheduling of the phone call as well.
== END 2020-12-11 19:15 | disposition home or self-care (01) ==
LOC: ER 18:50 → MEDSURG 20:58
PROVIDERS: Admitting Provider Internal Medicine; Emergency Provider Family Medicine; PCP Nurse Practitioner Family; Visit Provider Internal Medicine
DX: F10.239 Alcohol dependence with withdrawal, unspecified (principal); R56.9 Unspecified convulsions; F10.20 Alcohol dependence, uncomplicated; E87.1 Hypo-osmolality and hyponatremia; R79.89 Other specified abnormal findings of blood chemistry; I10 Essential (primary) hypertension; F41.9 Anxiety disorder, unspecified; F32.9 Major depressive disorder, single episode, unspecified; F17.210 Nicotine dependence, cigarettes, uncomplicated
CPT/HCPCS: 36415; 70450; 71045; 80048; 80053; 80061; 80306; 80307; 81003; 82009; 82550; 83036; 83605; 83690; 83735; 84100; 84443; 85025; 86140; 93005; 96361; 96365; 96366; 96372; 96375; 99285; G0378; J1650; J3411; J3475; J3490; J7030

== ENCOUNTER → 2021-01-06 10:13 | Outpatient (BNVA) | payer BC, SELFPAY | PROVIDERS: PCP Nurse Practitioner Family; Visit Provider Specialist | DX: R56.9 Unspecified convulsions (principal); F17.210 Nicotine dependence, cigarettes, uncomplicated | CPT/HCPCS: 95816 ==

== ENCOUNTER 2021-03-11 16:48 | Observation (INO) | payer BC, SELFPAY ==
[2021-03-11] VITALS (16 sets, daily range): BP systolic 115–148; BP diastolic 78–111; PULSE 93–121; RESP 13–27; TEMP 37.1–37.2; O2SAT 90–97; BMI 31.4; BMI 14.0
--- NOTE | 2021-03-11 16:59 | USR_ITS ---
PROCEDURE INFORMATION: Exam: US Abdomen, Limited; Right Upper Quadrant Exam date and time: 03/11/2021 5:04 PM Age: 31 years old Clinical indication: Abdominal pain; Additional info: Cirrhosis TECHNIQUE: Imaging protocol: US abdomen. Real time ultrasound with image documentation. Limited exam focused on the right upper quadrant. COMPARISON: No relevant prior studies available. FINDINGS: Real-time sonography of the right upper quadrant was performed. The pancreas is obscured by bowel gas. There is hepatomegaly. The liver is heterogeneous and difficult to penetrate. Hepatopetal flow is seen within the main portal vein. There is no liver mass. There is no intrahepatic biliary dilatation. The common bile duct measured 4.8 mm. No gallstones are seen within the gallbladder. There is no thickening of the gallbladder wall. There is no pericholecystic fluid. The patient was not tender over the gallbladder. The right kidney appeared normal. No free fluid is identified. The aorta and IVC were unremarkable. US/US liver [id number] IMPRESSION: 1. Hepatomegaly with heterogeneous liver. No discrete masses. 2. No biliary dilatation.
--- NOTE | 2021-03-11 17:00 | W.ED.SEIZURE ---
Documented by User: Kalpesh Clemens DO 03/11/21 18:34 HPI - Seizure General: Chief Complaint: Seizure Stated Complaint: SEIZURE/ POSTICTAL Time Seen by Provider: 03/11/21 16:50 History of Present Illness: HPI Narrative: 31-year-old male presents emergency room after being found nonresponsive at a local urgent care outside clinic. His last drink was 2 days ago. He states he has been drinking heavily for the last 4 days. He usually drinks somewhere between 10 or more shots per day has been doing this for several years. He previously had tried to drinking in the past which resulted in a seizure. Cannot recall what happened earlier today EMS described him as postictal he has some blood smeared on the right side of his face and his injury to his upper lip at the midline. At this time he is awake and alert. He is on the Bactrim is also on folic acid, and thiamine. MD complaint: seizure Onset (ago): minute(s) Description of Episode: loss of consciousness and post-event confusion Witnessed: No Trauma: No Seizure History: Yes Place: Outdoors Possible Precipitating Event: alcohol withdrawal Associated symptoms: Reports confusion; Deny chest pain, chills, cough, diaphoresis, fever(s), anorexia, malaise, rash, short of breath, syncope or weakness Treatments prior to arrival: none Review of Systems Const: Denies: fever(s), chills, malaise or diaphoresis ENMT: Denies: throat pain, ear or mastoid pain, nasal discharge or nasal congestion Card: Denies: chest pain or syncope Resp: Denies: dyspnea, productive cough or non-productive cough GI: Denies: abdominal pain, nausea, vomiting, hematemesis, coffee ground emesis, diarrhea, constipation, bloating, hematochezia or melena : Denies: flank pain, dysuria, urinary frequency or urinary urgency Skin/Breast: Denies: rash or pruritus Neuro: Reports: confusion PFSH ED PFSH: Medical History Alcohol withdrawal seizure Anxiety Depression HTN (hypertension) Family History Father Alcoholic Other CAD (coronary artery disease) Cancer Social History (Reviewed 03/11/21 @ 17:03 by CALIN Burgess Smoking and tobacco status: current every day smoker Alcohol intake: current Physical Exam Const: COMMON NORMALS: no acute distress GENERAL APPEARANCE: cooperative and comfortable ORIENTATION/CONSCIOUSNESS: Yes awake HENMT: COMMON NORMALS: normocephalic, atraumatic, hearing grossly normal bilaterally and EAC's normal HEAD & SCALP: normocephalic and atraumatic EXTERNAL AUDITORY CANAL: EAC's normal Eye: COMMON NORMALS: Equal, round and reactive pupils present, EOMs intact bilaterally, conjunctivae normal and no scleral icterus CONJUNCTIVA: Yes conjunctivae normal SCLERA: scleral abnormal (Scleral icterus) PUPIL: Yes Equal, round and reactive pupils present Neck/C-Spine: COMMON NORMALS: no JVD Resp: COMMON NORMALS: normal respiratory effort, No retractions, No use of accessory muscles and clear to auscultation bilaterally AUSCULTATION: clear to auscultation bilaterally Cardio: COMMON NORMALS: no JVD, regular rate, regular rhythm and No murmurs present (Cardio) RATE: regular rate RHYTHM: regular rhythm GI: COMMON NORMALS: Soft to palpation and No hepatosplenomegaly present AUSCULTATION: Yes normoactive bowel sounds PALPATION: Yes Soft to palpation, No Tenderness to palpation present (GI), No Guarding due to palpation present (GI) and Yes No hepatosplenomegaly present Extremity: COMMON NORMALS: normal to inspection, capillary refill normal, no clubbing, cyanosis or edema, no calf tenderness and no pedal edema Skin: COMMON NORMALS: no rashes or lesions noted GENERAL SKIN EXAM: no rashes or lesions noted Course Vital Signs: Vital signs: Vital Signs Temperature 98.7 F 03/11/21 16:51 Pulse Rate 102 H 03/11/21 18:36 Respiratory Rate 27 H 03/11/21 18:36 Blood Pressure 136/111 03/11/21 18:36 Pulse Oximetry 90 03/11/21 18:36 MDM - Seizure Lab Data: Labs: Lab Results 03/11/21 03/11/21 03/11/21 Range/Units 17:00 17:34 17:34 WBC 5.6 (4.0-10.0) 10^3/ uL RBC 3.54 L (4.1-5.3) 10^6/u L Hgb 12.2 (11.7-16.6) g/dL Hct 34.0 L (42.0-52.0) % MCV 96.0 H (80-94) fL MCH 34.5 H (28.0-34.0) pg MCHC 35.9 (30.0-36.0) g/dL RDW 19.0 H (12.1-15.1) % Plt Count 222 (130-400) 10^3/c mm MPV 12.0 H (7.4-10.4) fL Neut % (Auto) 73.5 % Lymph % (Auto) 19.3 % [place] % (Auto) 5.9 % Eos % (Auto) 0.5 % Baso % (Auto) 0.4 % Neut # (Auto) 4.13 (1.8-7.7) 10^3/u L Lymph # (Auto) 1.1 (0.8-4.8) 10^3/u L [place] # (Auto) 0.3 (0.2-0.9) 10^3/u L Eos # (Auto) 0.0 (0.0-0.8) 10^3/u L Baso # (Auto) 0.0 (0.0-0.1) 10^3/u L Nucleated RBC % (a uto) 0 % Nucleated RBCs # 0.0 /100WBC PT (12.1-14.9) SECO NDS INR (0.8-1.2) APTT (23.9-36.7) SECO NDS Sodium 135 L (136-145) mmol/L Potassium 2.6 L* (3.5-5.1) mmol/L Chloride 92 L (98-107) mmol/L Carbon Dioxide 28 (22-29) mmol/L Anion Gap 17.6 (5-19) BUN 5 L (6-20) mg/dL Creatinine 0.5 L (0.7-1.2) mg/dL GFR Calculation 191.5 H (90-130) mL/min Glucose 110 (65-115) mg/dL Calculated Osmolal ity 278 L (285-295) mOsm/k g Calcium 7.5 L (8.5-10.5) mg/dL Total Bilirubin 7.7 H* (0.15-1.2) mg/dL AST 502 H (0-40) U/L ALT 166 H (0-41) U/L Alkaline Phosphata se 358 H (40-130) IU/L Ammonia (16-60) umol/L Total Protein 6.3 L (6.6-8.7) g/dL Albumin 3.7 (3.5-5.2) g/dL Globulin 2.6 (1.3-4.6) g/dL Urine Color Chary (Yellow) Urine Appearance Clear (CLEAR) Urine pH 8 H (5-7) Ur Specific Gravit y 1.010 (1.005-1.030) Urine Protein Neg (Negative) Urine Glucose (UA) Norm (Normal) Urine Ketones Negative (Negative) Urine Blood Neg (Negative) Urine Nitrate Negative (Negative) Urine Bilirubin 2+ H (Negative) Prot Sulfosalicyli c Acd Negative (Negative) Urine Urobilinogen 4+ H (Negative) mg/dL Ur Leukocyte Bety ase Negative (Negative) 03/11/21 03/11/21 Range/Units 17:34 18:00 WBC (4.0-10.0) 10^3/ uL RBC (4.1-5.3) 10^6/u L Hgb (11.7-16.6) g/dL Hct (42.0-52.0) % MCV (80-94) fL MCH (28.0-34.0) pg MCHC (30.0-36.0) g/dL RDW (12.1-15.1) % Plt Count (130-400) 10^3/c mm MPV (7.4-10.4) fL Neut % (Auto) % Lymph % (Auto) % [place] % (Auto) % Eos % (Auto) % Baso % (Auto) % Neut # (Auto) (1.8-7.7) 10^3/u L Lymph # (Auto) (0.8-4.8) 10^3/u L [place] # (Auto) (0.2-0.9) 10^3/u L Eos # (Auto) (0.0-0.8) 10^3/u L Baso # (Auto) (0.0-0.1) 10^3/u L Nucleated RBC % (a uto) % Nucleated RBCs # /100WBC PT 15.10 H (12.1-14.9) SECO NDS INR 1.15 (0.8-1.2) APTT 34.2 (23.9-36.7) SECO NDS Sodium (136-145) mmol/L Potassium (3.5-5.1) mmol/L Chloride (98-107) mmol/L Carbon Dioxide (22-29) mmol/L Anion Gap (5-19) BUN (6-20) mg/dL Creatinine (0.7-1.2) mg/dL GFR Calculation (90-130) mL/min Glucose (65-115) mg/dL Calculated Osmolal ity (285-295) mOsm/k g Calcium (8.5-10.5) mg/dL Total Bilirubin (0.15-1.2) mg/dL AST (0-40) U/L ALT (0-41) U/L Alkaline Phosphata se (40-130) IU/L Ammonia 136 H (16-60) umol/L Total Protein (6.6-8.7) g/dL Albumin (3.5-5.2) g/dL Globulin (1.3-4.6) g/dL Urine Color (Yellow) Urine Appearance (CLEAR) Urine pH (5-7) Ur Specific Gravit y (1.005-1.030) Urine Protein (Negative) Urine Glucose (UA) (Normal) Urine Ketones (Negative) Urine Blood (Negative) Urine Nitrate (Negative) Urine Bilirubin (Negative) Prot Sulfosalicyli c Acd (Negative) Urine Urobilinogen (Negative) mg/dL Ur Leukocyte Bety ase (Negative) Discharge Plan Discharge Patient Disposition: Admitted As Inpatient Clinical Impression: Abuse, drug or alcohol, Alcohol withdrawal seizure Condition: Stable Coding Level of Care Code ED Silvering Applicator for Chg Fwd Exam Comprehensive Documented by User: Donavan Braga DO 03/11/21 18:51 HPI - Seizure General: Chief Complaint: Seizure Stated Complaint: SEIZURE/ POSTICTAL Time Seen by Provider: 03/11/21 16:50 PFSH ED PFSH: Medical History Alcohol withdrawal seizure Anxiety Depression HTN (hypertension) Family History Father Alcoholic Other CAD (coronary artery disease) Cancer Social History Smoking and tobacco status: current every day smoker Alcohol intake: current Course Vital Signs: Vital signs: Vital Signs Temperature 98.7 F 03/11/21 16:51 Pulse Rate 102 H 03/11/21 18:36 Respiratory Rate 27 H 03/11/21 18:36 Blood Pressure 136/111 03/11/21 18:36 Pulse Oximetry 90 03/11/21 18:36 MDM - Seizure MDM Narrative: Medical decision making narrative: Originally signed out to me by Dr. Clemens. Test results came back, and the patient was admitted to the floor by him. Patient currently stable in the ER. Lab Data: Labs: Lab Results 03/11/21 03/11/21 03/11/21 Range/Units 17:00 17:34 17:34 WBC 5.6 (4.0-10.0) 10^3/ uL RBC 3.54 L (4.1-5.3) 10^6/u L Hgb 12.2 (11.7-16.6) g/dL Hct 34.0 L (42.0-52.0) % MCV 96.0 H (80-94) fL MCH 34.5 H (28.0-34.0) pg MCHC 35.9 (30.0-36.0) g/dL RDW 19.0 H (12.1-15.1) % Plt Count 222 (130-400) 10^3/c mm MPV 12.0 H (7.4-10.4) fL Neut % (Auto) 73.5 % Lymph % (Auto) 19.3 % [place] % (Auto) 5.9 % Eos % (Auto) 0.5 % Baso % (Auto) 0.4 % Neut # (Auto) 4.13 (1.8-7.7) 10^3/u L Lymph # (Auto) 1.1 (0.8-4.8) 10^3/u L [place] # (Auto) 0.3 (0.2-0.9) 10^3/u L Eos # (Auto) 0.0 (0.0-0.8) 10^3/u L Baso # (Auto) 0.0 (0.0-0.1) 10^3/u L Nucleated RBC % (a uto) 0 % Nucleated RBCs # 0.0 /100WBC PT (12.1-14.9) SECO NDS INR (0.8-1.2) APTT (23.9-36.7) SECO NDS Sodium 135 L (136-145) mmol/L Potassium 2.6 L* (3.5-5.1) mmol/L Chloride 92 L (98-107) mmol/L Carbon Dioxide 28 (22-29) mmol/L Anion Gap 17.6 (5-19) BUN 5 L (6-20) mg/dL Creatinine 0.5 L (0.7-1.2) mg/dL GFR Calculation 191.5 H (90-130) mL/min Glucose 110 (65-115) mg/dL Calculated Osmolal ity 278 L (285-295) mOsm/k g Calcium 7.5 L (8.5-10.5) mg/dL Total Bilirubin 7.7 H* (0.15-1.2) mg/dL AST 502 H (0-40) U/L ALT 166 H (0-41) U/L Alkaline Phosphata se 358 H (40-130) IU/L Ammonia (16-60) umol/L Total Protein 6.3 L (6.6-8.7) g/dL Albumin 3.7 (3.5-5.2) g/dL Globulin 2.6 (1.3-4.6) g/dL Urine Color Chary (Yellow) Urine Appearance Clear (CLEAR) Urine pH 8 H (5-7) Ur Specific Gravit y 1.010 (1.005-1.030) Urine Protein Neg (Negative) Urine Glucose (UA) Norm (Normal) Urine Ketones Negative (Negative) Urine Blood Neg (Negative) Urine Nitrate Negative (Negative) Urine Bilirubin 2+ H (Negative) Prot Sulfosalicyli c Acd Negative (Negative) Urine Urobilinogen 4+ H (Negative) mg/dL Ur Leukocyte Bety ase Negative (Negative) 03/11/21 03/11/21 Range/Units 17:34 18:00 WBC (4.0-10.0) 10^3/ uL RBC (4.1-5.3) 10^6/u L Hgb (11.7-16.6) g/dL Hct (42.0-52.0) % MCV (80-94) fL MCH (28.0-34.0) pg MCHC (30.0-36.0) g/dL RDW (12.1-15.1) % Plt Count (130-400) 10^3/c mm MPV (7.4-10.4) fL Neut % (Auto) % Lymph % (Auto) % [place] % (Auto) % Eos % (Auto) % Baso % (Auto) % Neut # (Auto) (1.8-7.7) 10^3/u L Lymph # (Auto) (0.8-4.8) 10^3/u L [place] # (Auto) (0.2-0.9) 10^3/u L Eos # (Auto) (0.0-0.8) 10^3/u L Baso # (Auto) (0.0-0.1) 10^3/u L Nucleated RBC % (a uto) % Nucleated RBCs # /100WBC PT 15.10 H (12.1-14.9) SECO NDS INR 1.15 (0.8-1.2) APTT 34.2 (23.9-36.7) SECO NDS Sodium (136-145) mmol/L Potassium (3.5-5.1) mmol/L Chloride (98-107) mmol/L Carbon Dioxide (22-29) mmol/L Anion Gap (5-19) BUN (6-20) mg/dL Creatinine (0.7-1.2) mg/dL GFR Calculation (90-130) mL/min Glucose (65-115) mg/dL Calculated Osmolal ity (285-295) mOsm/k g Calcium (8.5-10.5) mg/dL Total Bilirubin (0.15-1.2) mg/dL AST (0-40) U/L ALT (0-41) U/L Alkaline Phosphata se (40-130) IU/L Ammonia 136 H (16-60) umol/L Total Protein (6.6-8.7) g/dL Albumin (3.5-5.2) g/dL Globulin (1.3-4.6) g/dL Urine Color (Yellow) Urine Appearance (CLEAR) Urine pH (5-7) Ur Specific Gravit y (1.005-1.030) Urine Protein (Negative) Urine Glucose (UA) (Normal) Urine Ketones (Negative) Urine Blood (Negative) Urine Nitrate (Negative) Urine Bilirubin (Negative) Prot Sulfosalicyli c Acd (Negative) Urine Urobilinogen (Negative) mg/dL Ur Leukocyte Bety ase (Negative) Discharge Plan Discharge Patient Disposition: Admitted As Inpatient Clinical Impression: Abuse, drug or alcohol, Alcohol withdrawal seizure Condition: Stable Coding Level of Care Code 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
--- NOTE | 2021-03-11 17:15 | PC.PHAR ---
pt states he takes care of his own medications-levetiracetam 500mg bid last filled on 12/12/20 no refills pt states he hasnt taken in a few weeks- vitamin b1 and thera tabs rx written on 12/11/20-[facility] states they have these medications as deactivated-pt states he takes this medication but hasnt taken for a couple weeks-naproxen and cyclobenzaprine filled 03/11/21 hasnt been picked from the pharmacy yet
[2021-03-11 17:27] LABS: Add Urine Microscopic? NO; Charge for UA Resulting for Rev
[2021-03-11 17:44] LABS: Urine Appearance Clear (CLEAR); Urine Color Amber (Yellow); pH Urine 8 (5-7)
[2021-03-11 17:45] LABS: Bilirubin Urine 2+ (Negative); Blood Urine Neg (Negative); Glucose Urine UA Norm (Normal); Ketones Urine Negative (Negative); Nitrate Urine Negative (Negative); Protein Urine Neg (Negative); Sulfosalicylic Acid Urine Negative (Negative)
[2021-03-11 17:46] LABS: Leukocyte Esterase Urine Negative (Negative); Urobilinogen Urine 4+ mg/dL (Negative)
[2021-03-11] MEDS: sodium chloride 0.9% 1,000 ML 999 ML IV (17:47)
[2021-03-11] MEDS: ondansetron 2 mg/ML SDV 2 mL 4 MG IVP (17:47)
[2021-03-11] MEDS: LORazepam 2 mg/mL INJ 1 mL IVP (17:47)
[2021-03-11 17:56] LABS: Basophils % 0.4 %; Eosinophils % 0.5 %; Hemoglobin 12.2 g/dL (11.7-16.6); Lymphocytes # 1.1 10^3/uL (0.8-4.8); Lymphocytes % 19.3 %; Mean Corpuscular HGB Conc 35.9 g/dL (30.0-36.0); Mean Corpuscular Hemoglobin 34.5 pg (28.0-34.0); Monocytes # 0.3 10^3/uL (0.2-0.9); Monocytes % 5.9 %; Neutrophils # 4.13 10^3/uL (1.8-7.7); Neutrophils % 73.5 %; Nucleated Red Blood Cells % 0 %; Platelet Count 222 10^3/cmm (130-400); Red Blood Count 3.54 10^6/uL (4.1-5.3); White Blood Count 5.6 10^3/uL (4.0-10.0)
[2021-03-11 18:07] LABS: Alanine Aminotransferase 166 U/L (0-41); Anion Gap 17.6 (5-19); Aspartate Amino Transferase 502 U/L (0-40); Blood Urea Nitrogen 5 mg/dL (6-20); Calcium 7.5 mg/dL (8.5-10.5); Carbon Dioxide 28 mmol/L (22-29); Chloride 92 mmol/L (98-107); Glomerular Filtration Rate 191.5 mL/min (90-130); Glucose 110 mg/dL (65-115); Osmolality Calculated 278 mOsm/kg (285-295); Sodium 135 mmol/L (136-145)
[2021-03-11 18:08] LABS: Albumin Level 3.7 g/dL (3.5-5.2); Alkaline Phosphatase 358 IU/L (40-130); Globulin 2.6 g/dL (1.3-4.6); Total Protein 6.3 g/dL (6.6-8.7)
[2021-03-11 18:11] LABS: Potassium 2.6 mmol/L (3.5-5.1)
[2021-03-11 18:13] LABS: Total Bilirubin 7.7 mg/dL (0.15-1.2)
[2021-03-11 18:20] LABS: Ammonia 136 umol/L (16-60)
[2021-03-11 18:25] LABS: INR 1.15 (0.8-1.2); Partial Thromboplastin Time 34.2 SECONDS (23.9-36.7)
[2021-03-11] MEDS: lidocaine 1% 5 ML in potassium chloride premix 100 ML 25 ML IV (19:56)
[2021-03-11] MEDS: sodium chloride 0.9% 1,000 ML 100 ML IV (21:29)
--- NOTE | 2021-03-11 23:29 | P.HP_ITS ---
Providers/Chief Complaint Admitting Physician: Kim Garcia Primary Care Provider: JIGNESH Baez Chief Complaint: SEIZURE/ POSTICTAL History of Present Illness Dave Gaston is a 31 year old male with a history of alcoholism and seizure disorder who stopped taking his keppra a few month prior presented to ER after he was noted to have a seizure episode. Patient stated he also stopped driving heavy about two days prior. No fever, chills, nausea or vomiting. No chest pain or dyspnea. Patient was post-ictal on arrival. He back to baseline at the time of my eval and wanting to discharge home in am. He was resumed on keppra 500 mg PO BID. No chest pain or dyspnea. High Review of Systems General: Reports: 10 or more systems reviewed and unremarkable except in HPI and below Medications/Allergies Home Medications Medication Instructions Recorded Confirmed Last Taken Type multivitamin with folic acid 1 tab PO DAILY #30 tab 12/11/20 03/11/21 Unknown Rx [Thera] thiamine mononitrate (vit B1) 100 mg PO DAILY #30 tab 12/11/20 03/11/21 Unknown Rx [Vitamin B-1 (mononitrate)] cyclobenzaprine 10 mg tablet 10 mg PO BID PRN 10 Days #10 tab 03/11/21 03/11/21 Unknown Rx folic acid 1 mg PO DAILY 03/11/21 03/11/21 Unknown History levetiracetam 500 mg PO BID 03/11/21 03/11/21 Unknown History naproxen 500 mg tablet 500 mg PO BID #20 tab 03/11/21 03/11/21 Unknown Rx potassium chloride [Klor-Con M20] 20 meq PO DAILY 03/11/21 03/11/21 Unknown History Allergies Allergy/AdvReac Type Severity Reaction Status Date / Time No Known Allergies Allergy Verified 03/11/21 17:15 PFSH Acute PFSH: Medical History Alcohol withdrawal seizure Anxiety Depression HTN (hypertension) Family History Father Alcoholic Other CAD (coronary artery disease) Cancer Social History Smoking and tobacco status: current every day smoker Alcohol intake: current Vitals/I&O/Wt Last Vital Signs Temp 98.9 F 03/11/21 21:15 Pulse 101 H 03/11/21 22:30 Resp 18 03/11/21 22:30 BP 131/96 03/11/21 22:30 Pulse Ox 93 03/11/21 22:30 03/11/21 03/11/21 03/12/21 14:59 22:59 06:59 Intake Total 125 / 125 Output Total 250 / 250 Balance -125 / -125 Weight last 48 hrs Weight 44.271 kg Weight 99.337 kg Physical Exam Narrative: EXAM NARRATIVE: General : Alert, Awake, NAD HEENT : Grossly unremarkable e CVS : RRR Chest - Non-labored respiration Abd: Non-tender/nondistended Ext : no edema Data : 03/12/21 03:31 03/12/21 03:31 A&P Assessment and plan (1) Alcohol withdrawal seizure: [place], ativan prn seizure precautions Keppra 500 mg PO BID Outpaitent neurology consult Status: Acute (2) Chronic alcohol dependence, continuous: CIWA withdrawal protocol Status: Acute (3) Acute hypokalemia: Replaced. Status: Acute Attestations Medical Necessity Statement*: anticipate > 2 midnight stay in hospital for evl and treatment. Time Spent in Patient Care: Greater than 35 minutes (>than 50% of time spent in counselling and/or direct pt care on unit) . Coding Level of Care Code Acute Salon Assistant for [facility] Diagnoses Alcohol withdrawal seizure F10.239; R56.9 Chronic alcohol dependence, continuous F10.20 Acute hypokalemia E87.6
[2021-03-12] VITALS (47 sets, daily range): BP systolic 108–163; BP diastolic 83–113; PULSE 89–117; RESP 12–32; TEMP 36.8–37.1; O2SAT 76–98
[2021-03-12] MEDS: lidocaine 1% 5 ML in potassium chloride premix 100 ML 25 ML IV ×2 (00:16→10:43)
[2021-03-12 05:18] LABS: Basophils % 0.9 %; Eosinophils # 0.1 10^3/uL (0.0-0.8); Eosinophils % 1.1 %; Hematocrit 34.4 % (42.0-52.0); Hemoglobin 11.6 g/dL (11.7-16.6); Lymphocytes # 1.5 10^3/uL (0.8-4.8); Lymphocytes % 31.8 %; Mean Corpuscular HGB Conc 33.7 g/dL (30.0-36.0); Mean Corpuscular Hemoglobin 33.9 pg (28.0-34.0); Mean Corpuscular Volume 100.6 fL (80-94); Mean Platelet Volume 12.5 fL (7.4-10.4); Monocytes # 0.3 10^3/uL (0.2-0.9); Neutrophils # 2.69 10^3/uL (1.8-7.7); Nucleated Red Blood Cells % 0 %; Platelet Count 203 10^3/cmm (130-400); Red Blood Count 3.42 10^6/uL (4.1-5.3); Red Cell Distribution Width 19.7 % (12.1-15.1); White Blood Count 4.6 10^3/uL (4.0-10.0)
[2021-03-12 05:45] LABS: Alanine Aminotransferase 150 U/L (0-41); Albumin Level 3.4 g/dL (3.5-5.2); Alkaline Phosphatase 320 IU/L (40-130); Anion Gap 16.1 (5-19); Aspartate Amino Transferase 438 U/L (0-40); Blood Urea Nitrogen 6 mg/dL (6-20); Carbon Dioxide 29 mmol/L (22-29); Chloride 96 mmol/L (98-107); Globulin 2.5 g/dL (1.3-4.6); Glomerular Filtration Rate 191.5 mL/min (90-130); Glucose 72 mg/dL (65-115); Osmolality Calculated 282 mOsm/kg (285-295); Potassium 3.1 mmol/L (3.5-5.1); Sodium 138 mmol/L (136-145); Total Protein 5.9 g/dL (6.6-8.7)
--- NOTE | 2021-03-12 08:27 | CTR_ITS ---
PROCEDURE INFORMATION: Exam: CT Abdomen And Pelvis With Contrast Exam date and time: 03/12/2021 8:31 AM Age: 31 years old Clinical indication: Abnormal findings; Abnormal lab test; Elevated liver enzymes; Additional info: Tranaminits, bili 6, alcoholic, evalauate for ascending TECHNIQUE: Imaging protocol: Computed tomography of the abdomen and pelvis with contrast. Radiation optimization: All CT scans at this facility use at least one of these dose optimization techniques: automated exposure control; mA and/or kV adjustment per patient size (includes targeted exams where dose is matched to clinical indication); or iterative reconstruction. Contrast material: OMNI 300; Contrast volume: 95 ml; Contrast route: INTRAVENOUS (IV); COMPARISON: US Abdomen, Limited; Right Upper Quadrant 03/11/2021 5:12 PM RADIATION DOSE METRICS: Total DLP (mGy-cm): 2179.7 FINDINGS: Liver: There is fatty change involving the liver parenchyma. Gallbladder and bile ducts: The gallbladder is distended. No calcified gallstones. No pericholecystic fluid or inflammation. No biliary ductal dilatation. Pancreas: No pancreatic mass. No peripancreatic inflammation. No pancreatic ductal dilation. Spleen: The spleen is homogeneous and is not enlarged. Adrenal glands: No adrenal mass. Kidneys and ureters: No hydronephrosis, nephrolithiasis, or renal mass. Stomach and bowel: No bowel obstruction, colitis or diverticulitis. Appendix: The appendix has a normal caliber with no wall thickening. No periappendiceal stranding. Intraperitoneal space: No ascites or pneumoperitoneum. Vasculature: No abdominal aortic aneurysm. The mesenteric arteries are patent. The mesenteric, portal, and hepatic veins are patent. Lymph nodes: Prominent portal lymph nodes. Urinary bladder: No urinary bladder calculus or wall thickening. Reproductive: Unremarkable as visualized. Bones/joints: Bilateral spondylolysis at L5. Minimal grade 1 anterolisthesis of L5 relative to L4 and S1. Soft tissues: Tiny umbilical hernia containing fat. CT/CT abdomen pelvis w con* [id number] IMPRESSION: 1. Fatty liver. 2. No biliary ductal dilatation. 3. Distended gallbladder. No calcified gallstones. Radiation Dose CTDIVOL = (mGy): DLP = 2179.7 (mGy-cm)
[2021-03-12] MEDS: iohexol 300 mg/mL 100 mL Btl IV (08:44)
[2021-03-12] MEDS: sodium chloride 0.9% 1,000 ML 100 ML IV ×2 (09:07→11:33)
[2021-03-12] MEDS: folic acid 1 mg Tablet PO (09:08)
[2021-03-12] MEDS: levETIRAcetam 500 mg Tablet PO (09:08)
[2021-03-12] MEDS: thiamine 100 mg Tablet PO (09:08)
[2021-03-12] MEDS: multivitamin therapeutic Tablet 1 TAB PO (09:08)
[2021-03-12] MEDS: folic acid 1 MG, multivitamin inj 10 ML, thiamine 100 MG in sodium chloride 0.9% 1,000 ML 252.8 MG IV (10:40)
[2021-03-12] MEDS: piperacillin-tazobactam 3.375 GM in sodium chloride 0.9% (plus) 50 ML IV (10:41)
[2021-03-12] MEDS: lactulose oral liq 20 gm/30 mL UDC PO (10:41)
[2021-03-12 11:46] LABS: INR 1.11 (0.8-1.2)
[2021-03-12 11:55] LABS: C Reactive Protein 15.6 mg/L (0.0-4.9)
[2021-03-12 12:01] LABS: Procalcitonin 0.39 ng/mL (0-0.5)
[2021-03-12 12:21] LABS: Hepatitis A Antibody IgM Non-Reactive (Nonreactive); Hepatitis B Core IgM Non-Reactive (Nonreactive); Hepatitis B Surface Antigen Non-Reactive (Nonreactive); Hepatitis C Virus Antibody Non-Reactive (Nonreactive)
[2021-03-12 12:33] LABS: HIV 1 & 2 Antibody Non-Reactive (Non-Reactiv); HIV 1 & 2 Antigen Non-Reactive (Non-Reactiv)
--- NOTE | 2021-03-12 13:33 | PM.PN ---
Subjective Subjective: Interval history: Patient tells me that his last alcohol patient tells me that his last alcohol drink was over 2 days ago, no abdominal pain, but he does have visible jaundice, tells me that this is normal for him, no chest pain, no palpitations, no abdominal pain, no diarrhea, no headache, no blurry vision, denies a history of esophageal varices, denies a history of portal hypertension, denies a history of drug use denies history of hep C, denies a history of acute descending cholangitis, or gallstones Vitals/I&O/Wt Last Vital Signs Temp 98.2 F 03/12/21 07:45 Pulse 105 H 03/12/21 12:30 Resp 20 H 03/12/21 12:30 BP 134/92 03/12/21 12:30 Pulse Ox 91 03/12/21 12:30 03/11/21 03/12/21 03/12/21 22:59 06:59 14:59 Intake Total 1125 / 1125 210 / 1335 1600 / 1600 Output Total 250 / 250 350 / 600 Balance 875 / 875 -140 / 735 1600 / 1600 Weight last 48 hrs Weight 44.271 kg Weight 99.337 kg Physical Exam Const: COMMON NORMALS: no acute distress and patient oriented x3 Eye: SCLERA: scleral abnormal Laterality of scleral abnormality: positive bilateral scleral icterus Neck/C-Spine: COMMON NORMALS: no JVD Resp: COMMON NORMALS: normal respiratory effort, No retractions, No use of accessory muscles and clear to auscultation bilaterally AUSCULTATION: clear to auscultation bilaterally Cardio: COMMON NORMALS: no JVD, regular rate, regular rhythm, S1 normal heart sound present and S2 normal heart sound present RATE: regular rate and tachycardic RHYTHM: regular rhythm HEART SOUNDS: S1 normal heart sound present, S2 normal heart sound present and no murmurs GI: COMMON NORMALS: Normal to inspection, nondistended, normoactive bowel sounds present, Soft to palpation and non-tender PALPATION: Yes Soft to palpation Extremity: COMMON NORMALS: no calf tenderness and no pedal edema Neuro: COMMON NORMALS: patient oriented x3, CN's II-XII intact bilaterally, moves all extremities and no focal motor deficits Psych: COMMON NORMALS: mental status grossly normal, Normal thought process present and cooperative THOUGHT PROCESS: Normal thought process present Data : 03/12/21 03:31 03/12/21 03:31 Micro: Microbiology 03/12/21 10:59 Blood Culture - Preliminary Blood SPECIMEN COLLECTED 03/12/21 10:50 Blood Culture - Preliminary Blood SPECIMEN COLLECTED A&P Assessment and plan (1) Alcohol withdrawal seizure: wa protocol Thiamine, folic acid, banana bag ativan prn seizure precautions, neurochecks, aspiration precautions Keppra 500 mg PO BID Zosyn for aspiration coverage Status: Acute (2) Chronic alcohol dependence, continuous: CIWA withdrawal protocol Status: Acute (3) Acute hypokalemia: Replaced. Status: Acute (4) Hyperbilirubinemia: -Will order CT scan of the abdomen to rule out obstructive jaundice Status: Acute (5) Hypokalemia: Status: Acute (6) Transaminitis: -secondary to alochol abuse -ordered acute hepatitis panel -ct abdomen and pelvis Status: Acute (7) Jaundice: Status: Acute Attestations Medical Necessity Statement*: patient requires hospitalization for alchol withdrawal, juandice, hyperbilirubinemia Coding Level of Care Code Acute Intensive Care Specialist for [facility] Fwd Diagnoses Alcohol withdrawal seizure F10.239; R56.9 Chronic alcohol dependence, continuous F10.20 Acute hypokalemia E87.6 Hyperbilirubinemia E80.6 Hypokalemia E87.6 Transaminitis R74.01 Jaundice R17
--- NOTE | 2021-03-12 14:01 | PC.NURSE ---
Late note: 0900 - per strip winder nurse, patient stated he will be leaving AMA if he is not discharged by 1300 because he has a birthday republican to attend. Write of note explained the importance of staying and the reason, elevated ammonia levels, and electrolyte imbalance. Nurse provided medication education.
--- NOTE | 2021-03-14 15:21 | PC.RESP ---
Smoking Cessation information sent to patient.
--- NOTE | 2021-03-22 16:02 | P.DS_ITS ---
Discharge Providers Date of Admission: 03/11/21 20:19 Date of Discharge: March 22, 2021 Attending Provider at Admission: Kim Garcia Attending Provider at Discharge: Gilbert Merchant MD Primary Care Provider: JIGNESH Baez Diagnoses at Discharge Discharge Diagnosis (1) Alcohol withdrawal seizure: Status: Acute (2) Chronic alcohol dependence, continuous: Status: Acute (3) Acute hypokalemia: Status: Acute (4) Hyperbilirubinemia: Status: Acute (5) Hypokalemia: Status: Acute (6) Transaminitis: Status: Acute (7) Jaundice: Status: Acute Reason for Visit Reason for Visit: SEIZURE/ POSTICTAL Hospital Course Hospital Course Patient left AGAINST MEDICAL ADVICE This is a 31-year-old male with past medical history of alcoholism, seizure disorder, who [place] [facility] due to seizure episodes, heavy drinking Patient was admitted to [facility] ICU for alcohol withdrawal seizure, received Keppra, thiamine, folic acid, banana bag, CIWA protocol, CT scan of the abdomen pelvis did not show any radiographic evidence obstructive uropathy, received IV fluids. Patient left AGAINST MEDICAL ADVICE. Was advised of the risks, morbidity and mortality associated, he voiced understanding, all questions answered, left AGAINST MEDICAL ADVICE. Discharge Data Data Completed and Pending: Completed Studies During Hospitalization Category Date Time Status CT abdomen pelvis w con* [id number] Stat Cat Scan 03/12/21 08:27 [place] liver [id number] St at Ultrasound 03/11/21 16:59 Completed Vitals: Last Vital Signs Temp 98.2 F 03/12/21 07:45 Pulse 105 H 03/12/21 12:30 Resp 20 H 03/12/21 12:30 BP 134/92 03/12/21 12:30 Pulse Ox 91 03/12/21 12:30 Discharge Plan Discharge Patient Disposition: Left Against Medical Advice Condition: Stable Prescriptions: No Action cyclobenzaprine 10 mg tablet 10 mg PO BID PRN (Reason: muscle spasm) 10 Days Qty: 10 RF: 0 naproxen 500 mg tablet 500 mg PO BID Qty: 20 RF: 0 thiamine mononitrate (vit B1) [Vitamin B-1 (mononitrate)] 100 mg Tablet 100 mg PO DAILY Qty: 30 RF: 3 multivitamin with folic acid [Thera] 400 mcg Tablet 1 tab PO DAILY Qty: 30 RF: 3 levetiracetam 500 mg tablet 500 mg PO BID RF: 0 Klor-Con M20 20 mEq tablet,ER particles/crystals 20 meq PO DAILY RF: 0 folic acid 1 mg tablet 1 mg PO DAILY RF: 0 Referrals: Gela Martins, HYDRAULIC PRESS OPERATOR [Primary Care Provider] - Discharge Attestations Time Spent in Discharge Care*: less than 30 min Quality Metrics Clinical Quality Measures During this hospital stay, did patient experience: None Coding Level of Care Code Acute Chg DC note Diagnoses Alcohol withdrawal seizure F10.239; R56.9 Chronic alcohol dependence, continuous F10.20 Acute hypokalemia E87.6 Hyperbilirubinemia E80.6 Hypokalemia E87.6 Transaminitis R74.01 Jaundice R17
== END 2021-03-12 14:24 | disposition left against medical advice (07) | DRG 894 ==
LOC: ER 18:42 → ICU 03-12 08:18
PROVIDERS: Admitting Provider Hospitalist; Emergency Provider Family Medicine; PCP Nurse Practitioner Family; Visit Provider Family Medicine
DX: F10.239 Alcohol dependence with withdrawal, unspecified (principal); F10.20 Alcohol dependence, uncomplicated; E80.6 Other disorders of bilirubin metabolism; E87.6 Hypokalemia; R74.01 Elevation of levels of liver transaminase levels; R17 Unspecified jaundice; Z91.128 Patient's intentional underdosing of medication regimen for other reason; F41.9 Anxiety disorder, unspecified; F32.9 Major depressive disorder, single episode, unspecified; I10 Essential (primary) hypertension; F17.210 Nicotine dependence, cigarettes, uncomplicated; Z53.29 Procedure and treatment not carried out because of patient's decision for other reasons
CPT/HCPCS: 36415; 74177; 76705; 80053; 80074; 81003; 82140; 84145; 85025; 85610; 85730; 86140; 87040; 87806; 96365; 96366; 96372; 96375; 99285; G0378; J2060; J2405; J2543; J3411; J3480; J3490; J7030; Q9967

== ENCOUNTER 2021-06-07 19:58 | Emergency (ER) | payer BC, SELFPAY ==
[2021-06-07 20:26] VITALS: BP 156/111; PULSE 114; RESP 20; TEMP 37.1; O2SAT 93; BMI 32.3
--- NOTE | 2021-06-07 21:12 | ED_ITS ---
HPI - Psych General: Chief Complaint: Psychiatric Symptoms Stated Complaint: Detoxic Time Seen by Provider: 06/07/21 21:03 Source: patient Mode of arrival: ambulatory Limitations: no limitations History of Present Illness: HPI Narrative: 31-year-old male who states that he is a chronic alcoholic has been drinking for over 5 years. States that he would like to detox. He states his last drink was today and has had a lot to drink today he is unsure how much. He denies any suicidality or homicidality. He states he is a history of an anal abscess in the past and feels like it is forming again. Denies any fever denies any vomiting denies any worsening improving factors. Associated symptoms: Deny depression Review of Systems Const: Denies: fever(s), chills, body aches or change in appetite Eyes: Denies: blurry vision or eye discomfort ENMT: Denies: throat pain or dental pain Card: Denies: chest pain Resp: Denies: dyspnea GI: Denies: abdominal pain, nausea, vomiting or diarrhea : Denies: dysuria Musc: Denies: neck pain or back pain Skin/Breast: Reports: erythema; Denies: rash Neuro: Denies: headache(s) Psych: Denies: depression Robert/Lymph: Denies: easy bruising All/Imm: Denies: urticaria PFSH ED PFSH: Medical History Alcohol withdrawal seizure Anxiety Depression HTN (hypertension) Family History Father Alcoholic Other CAD (coronary artery disease) Cancer Social History Smoking and tobacco status: current every day smoker Alcohol intake: current Physical Exam Const: COMMON NORMALS: no acute distress, patient oriented x3 and healthy appearing GENERAL APPEARANCE: odor of alcohol detected HENMT: COMMON NORMALS: normocephalic and atraumatic HEAD & SCALP: normocephalic and atraumatic Eye: COMMON NORMALS: Equal, round and reactive pupils present and EOMs intact bilaterally PUPIL: Yes Equal, round and reactive pupils present Neck/C-Spine: COMMON NORMALS: full ROM and supple Chest: COMMONS NORMALS: normal inspection of the chest and normal palpation of entire chest wall Resp: COMMON NORMALS: normal respiratory effort, No retractions, No use of accessory muscles and clear to auscultation bilaterally AUSCULTATION: clear to auscultation bilaterally Cardio: COMMON NORMALS: regular rate, regular rhythm and No murmurs present (Cardio) RATE: regular rate RHYTHM: regular rhythm GI: COMMON NORMALS: Normal to inspection, nondistended, normoactive bowel sounds present, Soft to palpation, non-tender and no masses PALPATION: Yes Soft to palpation : OTHER: Small area of erythema noted to the right buttocks no abscess noted no tenderness Extremity: COMMON NORMALS: normal to inspection and full ROM Neuro: COMMON NORMALS: patient oriented x3, moves all extremities and no focal motor deficits Psych: COMMON NORMALS: mental status grossly normal, Normal thought process present and cooperative THOUGHT PROCESS: Normal thought process present Skin: COMMON NORMALS: no rashes or lesions noted and no wounds GENERAL SKIN EXAM: no rashes or lesions noted Course Vital Signs: Vital signs: Vital Signs Temperature 98.8 F 06/07/21 20:26 Pulse Rate 114 H 06/07/21 20:26 Respiratory Rate 20 H 06/07/21 20:26 Blood Pressure 156/111 06/07/21 20:26 Pulse Oximetry 93 06/07/21 20:26 MDM - Psych MDM Narrative: Medical decision making narrative: Patient presents with alcohol intoxication. Informed him we do not do detox here and he would need to contact [facility]. He is not suicidal or homicidal. Upon his initial discharge he did state he been having some depression due to his alcoholism. I had patient evaluated by Dr. Garland. He is not actively suicidal or homicidal patient was evaluated by Dr. Garland who agreed these not actively suicidal but did recommended observation admission for his alcoholism and depression. Patient actually after talking to Dr. Garland he eloped. When seen him get down the vehicle on the camera. We have called police and called his father to look for him and have him return. Lab Data: Labs: Lab Results 06/07/21 Range/Units 21:48 Urine Opiates Scre en Negative (Negative) ng/mL Ur Barbiturates Sc reen Negative (Negative) ng/mL Ur Phencyclidine S crn Negative (Negative) ng/mL Ur Amphetamines Sc reen Negative (Negative) ng/mL U Benzodiazepines Scrn Negative (Negative) ng/mL Urine Cocaine Scre en Negative (Negative) ng/mL U Marijuana (THC) Screen Negative (Negative) ng/mL Discharge Plan Discharge Patient Disposition: Left Against Medical Advice Clinical Impression: Chronic alcohol dependence, continuous, Abscess, Depression Condition: Stable Prescriptions: No Action cyclobenzaprine 10 mg tablet 10 mg PO BID MDD SEE PHARMACY COMMENT PRN (Reason: muscle spasm) 10 Days Qty: 10 RF: 0 naproxen 500 mg tablet 500 mg PO BID Qty: 20 RF: 0 thiamine mononitrate (vit B1) [Vitamin B-1 (mononitrate)] 100 mg Tablet 100 mg PO DAILY Qty: 30 RF: 3 multivitamin with folic acid [Thera] 400 mcg Tablet 1 tab PO DAILY Qty: 30 RF: 3 levetiracetam 500 mg tablet 500 mg PO BID RF: 0 potassium chloride [Klor-Con M20] 20 mEq tablet,ER particles/crystals 20 meq PO DAILY RF: 0 folic acid 1 mg tablet 1 mg PO DAILY RF: 0 Referrals: Gela Martins DOUGH MIXER OPERATOR [Primary Care Provider] - 1-3 days Discharge Diet: Advance as tolerated Discharge Activity: Resume usual activity Patient Instructions: Abuse of Alcohol (ED) Coding Level of Care Code ED Avionics Systems Integration Specialist for Chg Fwd Exam Comprehensive
[2021-06-07 22:02] LABS: Amphetamines Screen Urine Negative (Negative); Barbiturates Screen Urine Negative (Negative); Benzodiazepines Screen Urine Negative (Negative); Cocaine Screen Urine Negative (Negative); Opiate Screen Urine Negative (Negative); PCP Screen Urine Negative (Negative); THC Screen Urine Negative (Negative)
== END 2021-06-07 23:05 | disposition left against medical advice (07) ==
PROVIDERS: Emergency Provider Emergency Medicine; PCP Nurse Practitioner Family
DX: F10.20 Alcohol dependence, uncomplicated (principal); F32.9 Major depressive disorder, single episode, unspecified; L02.91 Cutaneous abscess, unspecified; I10 Essential (primary) hypertension; F17.200 Nicotine dependence, unspecified, uncomplicated; Z53.29 Procedure and treatment not carried out because of patient's decision for other reasons; Z81.1 Family history of alcohol abuse and dependence
CPT/HCPCS: 80306; 99282

== ENCOUNTER 2021-09-15 12:58 | Inpatient (IN) | payer BC, SELFPAY ==
[2021-09-15] VITALS (14 sets, daily range): BP systolic 114–173; BP diastolic 80–112; PULSE 81–154; RESP 12–28; TEMP 37–37.1; O2SAT 92–98; BMI 29.5
--- NOTE | 2021-09-15 13:04 | ED_ITS ---
HPI - Seizure General: Chief Complaint: Seizure Stated Complaint: SEIZURE Time Seen by Provider: 09/15/21 13:03 History of Present Illness: HPI Narrative: 31-year-old male with history of seizures and alcohol withdrawal presents after a seizure approximately half hour ago. This was witnessed by EMS. Blood sugar was 160. Upon awakening he did have a small abrasion on his right forehead. Does not know date of last tetanus shot. Denies any focal numbness weakness or tingling. States last drink was 3 days ago and he is intentionally trying to cut down. Seizure History: Yes Review of Systems Narrative: - CONSTITUTIONAL: Denies weight loss, fever and chills. - HEENT: Denies changes in vision and hearing. - RESPIRATORY: Denies SOB and cough. - CV: Denies palpitations and CP. - GI: Denies abdominal pain, nausea, vomiting and diarrhea. - : Denies dysuria and urinary frequency. - MSK: Denies myalgia and joint pain. - SKIN: Denies rash and pruritus. - NEUROLOGICAL: As above - PSYCHIATRIC: Denies suicidal ideation [facility] ED PFSH: Medical History Alcohol withdrawal seizure Anxiety Depression HTN (hypertension) Family History Father Alcoholic Other CAD (coronary artery disease) Cancer Social History Smoking and tobacco status: current every day smoker Alcohol intake: current Physical Exam Narrative: EXAM NARRATIVE: - GENERAL: Alert and oriented x 3. No acute distress. Well-nourished. - EYES: EOMI. Anicteric. - HENT: Minor abrasion to right forehead and small abrasions of the lateral sides of the tongue from biting. No nasal septal hematoma. No bony ligamentous laxity. no C-spine tenderness. Moist mucous membranes. No scleral icterus. No cervical lymphadenopathy. - LUNGS: Clear to auscultation bilaterally. No accessory muscle use. Equal lung sounds bilaterally. No respiratory distress. - CARDIOVASCULAR: Regular rate and rhythm. No murmur. No JVD. - ABDOMEN: Soft, non-tender and non-distended. Negative CVA tenderness bilaterally, no rebound or guarding, negative Cruz sign. No palpable masses. - EXTREMITIES: No edema. Non-tender. - SKIN: No rashes or lesions. Warm. - NEUROLOGIC: No meningismus or focal neurological deficits. CN II-XII grossly intact. - PSYCHIATRIC: Cooperative. Appropriate mood and affect. Course Vital Signs: Vital signs: Vital Signs Temperature 98.8 F 09/15/21 12:59 Pulse Rate 110 H 09/15/21 15:20 Respiratory Rate 20 H 09/15/21 15:20 Blood Pressure 173/100 09/15/21 15:20 Pulse Oximetry 93 09/15/21 15:20 MDM - Seizure MDM Narrative: Medical decision making narrative: 31-year-old male with history of alcoholism previous seizures presents after seizure. Blood sugar was within normal. Nonfocal exam. Does have bilateral mild tongue biting but no laceration. CT scan of the head and C-spine does not reveal any cranial hemorrhage fracture dislocation or other acute abnormality. Last drink was 3 days ago. Keppra provided. Banana bag also provided. He was found to be hypomagnesemic and hypokalemic. Electrolyte supplementation provided on repeat lab work is significantly improving. Remainder of lab work is unremarkable. EKG does not reveal any sign of arrhythmia acute ischemia or other acute abnormality initially in sinus tachycardia but significantly improved with IV fluids. Repeat potassium was not significant. Remainder of lab work and imaging reviewed. Discussed with hospitalist and they agreed patient would benefit from admission. Patient admitted in stable condition. Further evaluation management per hospitalist team. Lab Data: Labs: Lab Results 09/15/21 09/15/21 09/15/21 13:18 13:18 13:58 WBC 10.9 10^3/uL H 10 ^3/uL (4.0-10.0) RBC 4.74 10^6/uL 10^6 /uL (4.1-5.3) Hgb 15.8 g/dL g/dL (11.7-16.6) Hct 43.2 % % (42.0-52.0) MCV 91.1 fl fl (80-94) MCH 33.3 pg pg (28.0-34.0) MCHC 36.6 g/dL H g/dL (30.0-36.0) RDW 17.7 % H % (12.1-15.1) Plt Count 144 10^3/cmm 10^3 /cmm (130-400) MPV 11.8 fL H fL (7.4-10.4) Neut % (Auto) 75.2 % % Lymph % (Auto) 17.0 % % Hendricks % (Auto) 7.1 % % Eos % (Auto) 0.2 % % Baso % (Auto) 0.1 % % Neut # (Auto) 8.22 10^3/uL H 10 ^3/uL (1.8-7.7) Lymph # (Auto) 1.9 10^3/uL 10^3/ uL (0.8-4.8) Hendricks # (Auto) 0.8 10^3/uL 10^3/ uL (0.2-0.9) Eos # (Auto) 0.0 10^3/uL 10^3/ uL (0.0-0.8) Baso # (Auto) 0.0 10^3/uL 10^3/ uL (0.0-0.1) Nucleated RBC % (a uto) 0.2 % % Nucleated RBCs # 0.0 /100WBC /100W BC Sodium 131 mmol/L L mmol /L (136-145) Potassium 2.4 mmol/L L* mmo l/L (3.5-5.1) Chloride 84 mmol/L L mmol/ L (98-107) Carbon Dioxide 21 mmol/L L mmol/ L (22-29) Anion Gap 28.4 H (5-19) BUN 9 mg/dL mg/dL (6-20) Creatinine 1.4 mg/dL H mg/dL (0.7-1.2) GFR Calculation 58.4 mL/min L mL/ min (90-130) Glucose 146 mg/dL H mg/dL (65-115) Calculated Osmolal ity 273 mOsm/kg L mOs m/kg (285-295) Calcium 8.3 mg/dL L mg/dL (8.5-10.5) Magnesium 1.4 mg/dL L mg/dL (1.7-2.3) Total Bilirubin 2.4 mg/dL H mg/dL (0.15-1.2) AST 183 U/L H U/L (0-40) ALT 94 U/L H U/L (0-41) Alkaline Phosphata se 247 IU/L H IU/L (40-130) Total Protein 6.6 g/dL g/dL (6.6-8.7) Albumin 4.1 g/dL g/dL (3.5-5.2) Globulin 2.5 g/dL g/dL (1.3-4.6) Urine Color Chary (Yellow) Urine Appearance Cloudy (CLEAR) Urine pH 5 (5-7) Ur Specific Gravit y 1.015 (1.005-1.030) Urine Protein 1+ H (Negative) Urine Glucose (UA) Norm (Normal) Urine Ketones 1+ H (Negative) Urine Blood 2+ H (Negative) Urine Nitrate Negative (Negative) Urine Bilirubin 2+ H (Negative) Urine Urobilinogen 4+ mg/dL H mg/dL (Negative) Ur Leukocyte Bety ase Trace H (Negative) Urine RBC 0-4 /hpf H /hpf (0-2) Urine WBC 5-10 /hpf H /hpf (0-5) Ur Squamous Epith Cells 0-4 /hpf H /hpf (0-5) Amorphous Sediment Trace /hpf /hpf Urine Bacteria Trace /hpf /hpf (NONE) Hyaline Casts 10-15 /lpf H /lpf Coarse Granular Ca sts 0-4 /lpf H /lpf Urine Mucus 1+ /hpf /hpf Urine Opiates Scre en Ur Barbiturates Sc reen Ur Phencyclidine S crn Ur Amphetamines Sc reen U Benzodiazepines Scrn Urine Cocaine Scre en U Marijuana (THC) Screen Ethyl Alcohol < 10 mg/dL mg/dL (0-10) 09/15/21 09/15/21 13:58 16:35 WBC RBC Hgb Hct MCV MCH MCHC RDW Plt Count MPV Neut % (Auto) Lymph % (Auto) Hendricks % (Auto) Eos % (Auto) Baso % (Auto) Neut # (Auto) Lymph # (Auto) Hendricks # (Auto) Eos # (Auto) Baso # (Auto) Nucleated RBC % (a uto) Nucleated RBCs # Sodium Potassium 2.3 mmol/L L* mmo l/L (3.5-5.1) Chloride Carbon Dioxide Anion Gap BUN Creatinine GFR Calculation Glucose Calculated Osmolal ity Calcium Magnesium 2.0 mg/dL mg/dL (1.7-2.3) Total Bilirubin AST ALT Alkaline Phosphata se Total Protein Albumin Globulin Urine Color Urine Appearance Urine pH Ur Specific Gravit y Urine Protein Urine Glucose (UA) Urine Ketones Urine Blood Urine Nitrate Urine Bilirubin Urine Urobilinogen Ur Leukocyte Bety ase Urine RBC Urine WBC Ur Squamous Epith Cells Amorphous Sediment Urine Bacteria Hyaline Casts Coarse Granular Ca sts Urine Mucus Urine Opiates Scre en Negative ng/mL ng /mL (Negative) Ur Barbiturates Sc reen Negative ng/mL ng /mL (Negative) Ur Phencyclidine S crn Negative ng/mL ng /mL (Negative) Ur Amphetamines Sc reen Negative ng/mL ng /mL (Negative) U Benzodiazepines Scrn Negative ng/mL ng /mL (Negative) Urine Cocaine Scre en Negative ng/mL ng /mL (Negative) U Marijuana (THC) Screen Negative ng/mL ng /mL (Negative) Ethyl Alcohol EKG Data^: EKG 1: Other EKG comments: Sinus tachycardia up to 146, no sign of acute ischemia or other acute abnormality. Repeat EKG, sinus tachycardia rate of 104, no sign of acute ischemia or other acute abnormality. Critical Care Time Critical Care Time: Critical Care Time: Yes Total Critical Care Time: 45 Attestation: This case had a high probability of a clinically significant, s udden, or life threatening deterioration of this patient's condition which required my full and direct attention, intervention and personal management. Discharge Plan Discharge Prescriptions: No Action multivitamin Tablet 1 tab PO DAILY RF: 0 Vitamin B-1 1 tab PO DAILY RF: 0 Vitamin B-12 1 tab PO DAILY RF: 0 Coding Level of Care Code ED Industrial Hire Sales Assistant for Foster Pina
--- NOTE | 2021-09-15 13:05 | ECG_ITS ---
[facility] Test Date: 2021-09-15 Pat Name: Dave Gaston Department: Room: Gender: Male Mold Laminator: : 1990 Requested By: Brent Hubbard Order Number: [id number] Cheng MD: Haja Choudhury M.D. Measurements Intervals [place] Rate: 146 P: 130 MN: 154 QRS: 78 QRSD: 96 T: 60 QT: 348 QTc: 543 Interpretive Statements ECTOPIC ATRIAL TACHYCARDIA, POSSIBLE ATRIAL FLUTTER MINIMAL ST DEPRESSION [0.025+ mV ST DEPRESSION] ABNORMAL RHYTHM ECG Compared to ECG 12/10/2020 19:03:42 ST (T wave) deviation now present Sinus tachycardia no longer present Electronically Signed On 09-17-2021 7:40:24 POLICY DIRECTOR by Haja Choudhury M.D. [id number]
--- NOTE | 2021-09-15 13:09 | XR_ITS ---
WS: [id number] Exam: XR chest 1V portable [id number] Date/Time of Exam: 09/15/2021 1:57 PM Reason For Exam: seizure Comparison 12/10/2020. Findings: The lungs are clear and fully expanded. Costophrenic angles are sharp. No infiltrates. Bronchovascula r relief appears normal. Cardiac silhouette is unremarkable. Bony elements are intact. XR/XR chest 1V portable [id number] IMPRESSION: Unremarkable chest radiograph.
--- NOTE | 2021-09-15 13:09 | CT_ITS ---
WS: [id number] CT CERVICAL SPINE HISTORY: seizure TECHNIQUE: Contiguous 2.5 mm axial imaging performed through the entire cervical spine. Sagittal and coronal reformats also performed. All CT scans at [facility] use at least one of these dose o ptimization techniques: automated exposure control; mA and/or kV adjustment per patient size (include s targeted exams where dose is matched to clinical indication); or iterative reconstruction. DLP: 851.08 mGy.cm COMPARISON: 07/21/2017 Normal cervical alignment. Craniocervical junction, atlantodental interval and C1-C2 alignment is nor mal. Unfused posterior ring of C1 is a normal variant. C2-C3: Normal. C3-C4: Mild osteophytic ridging with a shallow central disc protrusion. C4-C5: Normal. C5-C6: Normal. C6-C7: Central disc protrusion. C7-T1: Normal. Soft tissues are normal. Lung apices are clear. CT/CT cervical spin wo con* [id number] IMPRESSION: 1. No acute cervical spine fracture. 2. Unfused posterior ring of C1 is normal variant.
--- NOTE | 2021-09-15 13:09 | CT_ITS ---
WS: [id number] CT HEAD NONCONTRAST HISTORY: seizure TECHNIQUE: Contiguous axial imaging performed through the brain in 2.5 mm imaging. Bone and soft tiss ue windows. Sagittal and coronal reformats reviewed. All CT scans at [facility] use at least one of these dose optimization techniques: automated exposure control; mA and/or kV adjustment per pa tient size (includes targeted exams where dose is matched to clinical indication); or iterative recon struction. DLP: 1029.4 mGy.cm COMPARISON: 12/10/2020 No acute intracranial hemorrhage, midline shift or mass effect. No atrophy or prior infarcts or herniation. Similar configuration along the interhemispheric falx. Ventricles: Normal size with no hydrocephalus. No inferior displacement of cerebellar tonsils. Paranasal sinuses: Moderate mucoperiosteal thickening in the RIGHT maxillary sinus. No air-fluid leve l. Mastoid air cells: Well pneumatized. Calvarium and scalp: No calvarial fracture. There is soft tissue hematoma and thickening over the RIG HT parietal bone probably from the recent trauma. CT/CT head wo con* [id number] IMPRESSION: 1. No acute intracranial hemorrhage or edema. 2. RIGHT lateral parietal calvarial hematoma.
[2021-09-15 13:35] LABS: Basophils % 0.1 %; Eosinophils % 0.2 %; Hematocrit 43.2 % (42.0-52.0); Hemoglobin 15.8 g/dL (11.7-16.6); Lymphocytes # 1.9 10^3/uL (0.8-4.8); Mean Corpuscular HGB Conc 36.6 g/dL (30.0-36.0); Mean Corpuscular Hemoglobin 33.3 pg (28.0-34.0); Mean Corpuscular Volume 91.1 fl (80-94); Mean Platelet Volume 11.8 fL (7.4-10.4); Monocytes # 0.8 10^3/uL (0.2-0.9); Monocytes % 7.1 %; Neutrophils # 8.22 10^3/uL (1.8-7.7); Neutrophils % 75.2 %; Nucleated Red Blood Cells % 0.2 %; Platelet Count 144 10^3/cmm (130-400); Red Blood Count 4.74 10^6/uL (4.1-5.3); Red Cell Distribution Width 17.7 % (12.1-15.1); White Blood Count 10.9 10^3/uL (4.0-10.0)
[2021-09-15 13:48] LABS: Alanine Aminotransferase 94 U/L (0-41); Albumin Level 4.1 g/dL (3.5-5.2); Alkaline Phosphatase 247 IU/L (40-130); Anion Gap 28.4 (5-19); Aspartate Amino Transferase 183 U/L (0-40); Blood Urea Nitrogen 9 mg/dL (6-20); Calcium 8.3 mg/dL (8.5-10.5); Carbon Dioxide 21 mmol/L (22-29); Chloride 84 mmol/L (98-107); Globulin 2.5 g/dL (1.3-4.6); Glomerular Filtration Rate 58.4 mL/min (90-130); Glucose 146 mg/dL (65-115); Magnesium 1.4 mg/dL (1.7-2.3); Osmolality Calculated 273 mOsm/kg (285-295); Sodium 131 mmol/L (136-145); Total Bilirubin 2.4 mg/dL (0.15-1.2); Total Protein 6.6 g/dL (6.6-8.7)
[2021-09-15 13:51] LABS: Alcohol Level < 10 mg/dL (0-10)
[2021-09-15 13:52] LABS: Potassium 2.4 mmol/L (3.5-5.1)
[2021-09-15] MEDS: multivitamin therapeutic Tablet 1 TAB PO (13:52)
[2021-09-15] MEDS: tetanus-diphtheria tox (adult) 0.5 mL SDV IM (13:53)
[2021-09-15] MEDS: sodium chloride 0.9% 1,000 ML 999 ML IV ×2 (13:53→15:19)
[2021-09-15] MEDS: potassium chloride ER 20 mEq Tablet PO (14:24)
[2021-09-15] MEDS: magnesium sulfate premix 2 GM/50 ML PIGGYBACK IV (14:24)
[2021-09-15 14:28] LABS: Bilirubin Urine 2+ (Negative); Blood Urine 2+ (Negative); Glucose Urine UA Norm (Normal); Ketones Urine 1+ (Negative); Leukocyte Esterase Urine Trace (Negative); Nitrate Urine Negative (Negative); Protein Urine 1+ (Negative); Specific Gravity, Urine 1.015 (1.005-1.030); Urine Appearance Cloudy (CLEAR); Urine Color Amber (Yellow); Urobilinogen Urine 4+ mg/dL (Negative); pH Urine 5 (5-7)
[2021-09-15 14:29] LABS: Amorphous Sediment Urine TRACE /hpf; Bacteria Urine TRACE /hpf; Mucus Urine 1+ /hpf; RBC Urine 0-4 /hpf (0-2); Squamous Epithelial Cell Urine 0-4 /hpf (0-5)
[2021-09-15 14:30] LABS: Add Urine Culture? No; Coarse Granular Casts Urine 0-4 /lpf
[2021-09-15 14:32] LABS: Amphetamines Screen Urine Negative (Negative); Barbiturates Screen Urine Negative (Negative); Benzodiazepines Screen Urine Negative (Negative); Cocaine Screen Urine Negative (Negative); Opiate Screen Urine Negative (Negative); PCP Screen Urine Negative (Negative); THC Screen Urine Negative (Negative)
[2021-09-15] MEDS: potassium chloride premix 100 ML 50 MEQ IV (15:19)
--- NOTE | 2021-09-15 15:41 | ECG_ITS ---
[facility] Test Date: 2021-09-15 Pat Name: Dave Gaston Department: Room: Gender: Male Paleobotanist: : 1990 Requested By: Brent Hubbard Order Number: [id number] Cheng MD: Haja Choudhury M.D. Measurements Intervals [place] Rate: 104 P: 36 ND: 170 QRS: 20 QRSD: 97 T: 35 QT: 383 QTc: 505 Interpretive Statements SINUS TACHYCARDIA ABNORMAL RHYTHM ECG Compared to ECG 09/15/2021 13:11:57 ST (T wave) deviation no longer present Electronically Signed On 09-17-2021 7:39:55 PHOTOCOPIER TECHNICIAN by Haja Choudhury M.D. [id number]
[2021-09-15 17:12] LABS: Potassium 2.3 mmol/L (3.5-5.1)
--- NOTE | 2021-09-15 18:44 | P.HP_ITS ---
Providers/Chief Complaint Admitting Physician: Salvador Kim Chief Complaint: SEIZURE History of Present Illness 31-year-old gentleman with history of alcohol use disorder, severe alcohol withdrawal, alcohol withdrawal seizures, was brought in to ER for assessment management following seizure, witnessed by EMS. He is awake and alert. Hypertensive, with sinus tachycardia, respirate 20, saturation 93% on room air, temp 98.8. Head CT without acute intracranial hemorrhage or edema. Right lateral parietal calvarial hematoma. No acute cervical spine fractures, unfused posterior ring of C1, normal variant. Unremarkable chest x-ray. On the barbiturate work-up last drink reported 3 days ago. Minimal 10.9, sodium 131, potassium 2.3 after replacement with initial potassium 2.4. Chloride 84. Bicarb 21. Anion gap 28.4. Creatinine 1.4. Initial magnesium 1.4, replaced, subsequently 2. T bili 2.4, AST 183, ALT 94, alk phos 247. UA with 1+ protein, 1+ ketones, 2+ blood, 2+ bilirubin, 4+ urobilinogen, trace leukocyte esterase, 0-4 RBC, 5-10 WBC, 0-4 squamous epithelial cells, trace amorphous sediment, trace urine bacteria, 10-15 hyaline casts, 0-4 coarse granular casts, 1+ mucus. UDS negative. He states he does not currently take any medications. Review of Systems Const: Denies: fever(s), chills, body aches or malaise Eyes: Denies: change in vision or eye redness ENMT: Denies: throat pain, oral sores or ear or mastoid pain Card: Denies: chest pain, edema, pre-syncope or dyspnea on exertion Resp: Denies: dyspnea, productive cough, change in phlegm color or hemoptysis GI: Denies: abdominal pain, nausea, vomiting, diarrhea, constipation, hematochezia or melena : Denies: flank pain, difficulty urinating, urinary frequency or hematuria Musc: Denies: back pain, joint swelling or joint redness Skin/Breast: Denies: rash, sores or new lesions Neuro: Reports: seizure-like activity; Denies: headache(s), numbness in extremities, weakness in extremities, dizziness or confusion Endo: Denies: polyuria or polydipsia Robert/Lymph: Denies: easy bleeding or purpura All/Imm: Denies: urticaria, throat swelling or tongue swelling Medications/Allergies Home Medications Medication Instructions Recorded Confirmed Last Taken Type Vitamin B-1 1 tab PO DAILY 09/15/21 09/15/21 Unknown History Vitamin B-12 1 tab PO DAILY 09/15/21 09/15/21 Unknown History multivitamin 1 tab PO DAILY 09/15/21 09/15/21 Unknown History Allergies Allergy/AdvReac Type Severity Reaction Status Date / Time No Known Allergies Allergy Verified 09/15/21 14:01 PFSH Acute PFSH: Medical History Alcohol withdrawal seizure Anxiety Depression HTN (hypertension) Smoking addiction Family History Father Alcoholic Other CAD (coronary artery disease) Cancer Social History Smoking and tobacco status: current every day smoker Alcohol intake: current Substance/Drug Use: never Vitals/I&O/Wt Last Vital Signs Temp 98.8 F 09/15/21 12:59 Pulse 110 H 09/15/21 15:20 Resp 20 H 09/15/21 15:20 BP 173/100 09/15/21 15:20 Pulse Ox 93 09/15/21 15:20 09/15/21 09/15/21 09/15/21 06:59 14:59 22:59 Intake Total 110 / 110 2150 / 2260 Balance 110 / 110 2150 / 2260 Weight last 48 hrs Weight 90.718 kg Physical Exam Const: COMMON NORMALS: no acute distress and patient oriented x3 HENMT: COMMON NORMALS: oropharynx normal Neck/C-Spine: COMMON NORMALS: no JVD Resp: COMMON NORMALS: normal respiratory effort and clear to auscultation bilaterally AUSCULTATION: clear to auscultation bilaterally Cardio: COMMON NORMALS: no JVD, regular rhythm, S1 normal heart sound present, S2 normal heart sound present and No murmurs present (Cardio) RHYTHM: regular rhythm HEART SOUNDS: S1 normal heart sound present and S2 normal heart sound present GI: COMMON NORMALS: Normal to inspection, nondistended, normoactive bowel sounds present, Soft to palpation and non-tender PALPATION: Yes Soft to palpation Extremity: COMMON NORMALS: no joint enlargement and no pedal edema Neuro: COMMON NORMALS: patient oriented x3 and moves all extremities Skin: COMMON NORMALS: no rashes or lesions noted GENERAL SKIN EXAM: no rashes or lesions noted Data : 09/15/21 13:18 09/15/21 16:35 A&P Assessment and plan (1) Alcohol withdrawal seizure: Severe alcohol withdrawal with alcohol withdrawal seizure. Currently no visual auditory hallucinations. Librium 50mg. Ativan per CIWA protocol. Seizure precautions. Status: Acute (2) Alcohol use disorder: Status: Acute (3) Smoking addiction: 1 PPD. Nicotine replacement. Status: Acute (4) Hypokalemia: Additional potassium replacement. Recheck level tonight and follow-up additional potassium and magnesium level in the morning. Status: Acute (5) Hypomagnesemia: Replaced. Recheck level in AM. Status: Acute (6) Hematoma of right parietal scalp: SCD only for VTE prophylaxis. Fall and seizure precautions. Status: Acute Attestations Medical Necessity Statement*: Admission of over 2 midnights for continued versus management of severe alcohol withdrawal with withdrawal seizure, severe hypokalemia. Coding Level of Care Code Acute Metal Template Maker for g Fwd Diagnoses Alcohol withdrawal seizure F10.239; R56.9 Alcohol use disorder Smoking addiction F17.200 Hypokalemia E87.6 Hypomagnesemia E83.42 Hematoma of right parietal scalp S00.03XA
[2021-09-15] MEDS: lidocaine 1% 5 ML in potassium chloride premix 100 ML 25 ML IV (18:48)
[2021-09-15 21:46] LABS: Potassium 2.6 mmol/L (3.5-5.1)
--- NOTE | 2021-09-15 22:00 | PC.NURSE ---
Admission note: Patient brought to ICU 3 by [facility]. Patient tolerated transport well. All vital signs are stable. Patient denies any pain, needs, or requests at this time. Admission assessment completed.
[2021-09-15] MEDS: D5-NS 0.45% + KCL 20 mEq 20 MEQ/1,000 ML BAG 75 MEQ IV (22:25)
[2021-09-15] MEDS: pantoprazole 40 mg SDV IVP (22:26)
[2021-09-16] VITALS (29 sets, daily range): BP systolic 112–157; BP diastolic 71–106; PULSE 75–121; RESP 9–32; TEMP 36.3–36.9; O2SAT 90–97
[2021-09-16 05:23] LABS: Basophils % 0.4 %; Eosinophils % 0.4 %; Hematocrit 36.1 % (42.0-52.0); Hemoglobin 12.8 g/dL (11.7-16.6); Lymphocytes # 1.3 10^3/uL (0.8-4.8); Lymphocytes % 26.1 %; Mean Corpuscular HGB Conc 35.5 g/dL (30.0-36.0); Mean Corpuscular Hemoglobin 33.3 pg (28.0-34.0); Mean Platelet Volume 12.5 fL (7.4-10.4); Monocytes # 0.4 10^3/uL (0.2-0.9); Monocytes % 8.6 %; Neutrophils # 3.15 10^3/uL (1.8-7.7); Neutrophils % 64.1 %; Nucleated Red Blood Cells % 0 %; Platelet Count 85 10^3/cmm (130-400); Red Blood Count 3.84 10^6/uL (4.1-5.3); White Blood Count 4.9 10^3/uL (4.0-10.0)
[2021-09-16 05:50] LABS: Alanine Aminotransferase 72 U/L (0-41); Albumin Level 3.4 g/dL (3.5-5.2); Alkaline Phosphatase 179 IU/L (40-130); Anion Gap 12.4 (5-19); Aspartate Amino Transferase 140 U/L (0-40); Blood Urea Nitrogen 6 mg/dL (6-20); Calcium 7.5 mg/dL (8.5-10.5); Carbon Dioxide 30 mmol/L (22-29); Chloride 97 mmol/L (98-107); Globulin 2.1 g/dL (1.3-4.6); Glomerular Filtration Rate 129.9 mL/min (90-130); Glucose 120 mg/dL (65-115); Magnesium 1.6 mg/dL (1.7-2.3); Osmolality Calculated 283 mOsm/kg (285-295); Phosphorus 1.8 mg/dL (2.5-4.5); Sodium 137 mmol/L (136-145); Total Bilirubin 1.4 mg/dL (0.15-1.2); Total Protein 5.5 g/dL (6.6-8.7)
[2021-09-16 06:06] LABS: Potassium 2.4 mmol/L (3.5-5.1)
[2021-09-16] MEDS: multivitamin therapeutic Tablet 1 TAB PO (07:50)
[2021-09-16] MEDS: thiamine 100 mg Tablet PO (07:50)
[2021-09-16] MEDS: folic acid 1 mg Tablet PO (07:50)
[2021-09-16] MEDS: magnesium sulfate premix 2 GM/50 ML PIGGYBACK IV (07:50)
[2021-09-16] MEDS: potassium chloride ER 20 mEq Tablet 40 MEQ PO ×2 (07:50→12:59)
[2021-09-16] MEDS: chlordiazePOXIDE 25 mg Capsule 50 MG PO (10:38)
[2021-09-16] MEDS: D5-NS 0.45% + KCL 20 mEq 20 MEQ/1,000 ML BAG 75 MEQ IV (10:39)
[2021-09-16 12:48] LABS: Magnesium 1.7 mg/dL (1.7-2.3); Phosphorus 2.4 mg/dL (2.5-4.5); Potassium 3.1 mmol/L (3.5-5.1)
--- NOTE | 2021-09-16 13:36 | P.PN_ITS ---
Subjective Subjective: Interval history: This morning he reports he is feeling well, denies any problems. Denies any pain or discomfort. No further seizures. Discussed with him severe electrolyte deficiencies for which he is receiving additional replacement. He is agreeable to recheck to electrolytes again this afternoon, and continue replacement, supportive care, with plan for reassessment again in the morning, and if doing better, possibly transition to oral replacements. Later in the morning he pulled out his IV, walked off to the waiting room outside, telling the nurses that he was going there to take a shift . Difficult to say whether he was confused as there is a restroom there, although he did not ask or let anybody know that he was pulling his IV out and leaving the floor. He later states he is not trying to leave the hospital AMA. Vitals/I&O/Wt Last Vital Signs Temp 97.4 F L 09/16/21 12:00 Pulse 90 09/16/21 10:00 Resp 9 L 09/16/21 10:43 BP 117/71 09/16/21 12:00 Pulse Ox 90 09/16/21 08:00 09/15/21 09/16/21 09/16/21 22:59 06:59 14:59 Intake Total 2150 / 2260 505 / 2765 1717.5 / 1717.5 Output Total 500 / 500 400 / 400 Balance 2150 / 2260 5 / 2265 1317.5 / 1317.5 Weight last 48 hrs Weight 88.451 kg Weight 90.718 kg Physical Exam Const: COMMON NORMALS: no acute distress, patient oriented x3 and alert GENERAL APPEARANCE: cooperative and comfortable ORIENTATION/CONSCIOUSNESS: Yes awake HENMT: COMMON NORMALS: oropharynx normal Neck/C-Spine: COMMON NORMALS: no JVD Resp: COMMON NORMALS: normal respiratory effort and clear to auscultation bilaterally AUSCULTATION: clear to auscultation bilaterally Cardio: COMMON NORMALS: no JVD, regular rhythm, S1 normal heart sound present, S2 normal heart sound present and No murmurs present (Cardio) RHYTHM: regular rhythm HEART SOUNDS: S1 normal heart sound present and S2 normal heart sound present GI: COMMON NORMALS: Normal to inspection, nondistended, normoactive bowel sounds present, Soft to palpation and non-tender PALPATION: Yes Soft to palpation Extremity: COMMON NORMALS: no joint enlargement and no pedal edema Neuro: COMMON NORMALS: patient oriented x3 and moves all extremities SENSORIUM/ORIENTATION: Yes alert Skin: COMMON NORMALS: no rashes or lesions noted GENERAL SKIN EXAM: no rashes or lesions noted Data : 09/16/21 04:25 09/16/21 12:25 A&P Assessment and plan (1) Hypokalemia: Severe electrolyte depletion, additional potassium this morning, and again this afternoon. Follow-up levels again in the morning, and if doing better, transition to oral replacement. Status: Acute (2) Hypomagnesemia: Additional magnesium replacement this morning and this afternoon again. Follow-up level again in the morning. Status: Acute (3) Alcohol withdrawal seizure: No further seizure recurrence, CIWA score is good, although with odd behavior this morning. Continue monitoring for further deterioration with withdrawal. Additional Librium 50 mg a day. Continue Ativan per CIWA protocol. Vitamin supplementation. Reduce IVF rate. P.o. intake as tolerating. If continues to do well, and we are able to replenish his severe electrolyte deficiencies, no worsening of alcohol withdrawal, perhaps may be looking at discharge home tomorrow. Status: Acute (4) Alcohol use disorder: States he has stayed in inpatient rehab in [place], but has not followed through on the plan after discharge. Intends to follow up with outpatient AA. Status: Acute (5) Smoking addiction: 1 PPD. Nicotine replacement. Status: Acute (6) Hematoma of right parietal scalp: SCD only for VTE prophylaxis. Fall and seizure precautions. Status: Acute Attestations Medical Necessity Statement*: Continue admission for assessment and management of severe electrolyte deficiencies, alcohol withdrawal. Coding Level of Care Code Acute Examining Officer for g Fwd Diagnoses Hypokalemia E87.6 Hypomagnesemia E83.42 Alcohol withdrawal seizure F10.239; R56.9 Alcohol use disorder Smoking addiction F17.200 Hematoma of right parietal scalp S00.03XA
[2021-09-16] MEDS: lidocaine 1% 5 ML in potassium chloride premix 100 ML 25 ML IV (15:44)
--- NOTE | 2021-09-16 18:03 | PC.NURSE ---
Shift Note Frequent safety and comfort rounds continue. Orders and nursing care completed as indicated. Patient received replacement potassium and magnesium today, see labs. Pt refused to wear director of cardiac rehabilitation but t is okay with nurse spot checking vitals as needed. Orders to transfer patient to [facility], currently no bed available. Patient monitored for response to intervention and treatments. Education provided includes IV management, importance of cardiac monitoring, and med medications. Patient verbalized understanding. Will continue to monitor.
--- NOTE | 2021-09-16 18:35 | PC.NURSE ---
Patient pulled out IV and requested to leave AMA, this nurse educated patient on the importance of staying and continuing treatment. Patient continued to want to leave AMA. Dr. Kim notified and reported to bedside. After much discussion, patient verbalized understanding on the risk of leaving AMA and still insisted on leaving. Patient signed AMA paperwork and was accompanied out of the building by this nurse.
--- NOTE | 2021-09-16 18:54 | P.DS_ITS ---
Discharge Providers Date of Admission: 09/15/21 17:16 Date of Discharge: September 16, 2021 Attending Provider at Admission: Salvador Kim Attending Provider at Discharge: Salvador Kim Diagnoses at Discharge Discharge Diagnosis (1) Hypokalemia: Status: Acute (2) Hypomagnesemia: Status: Acute (3) Alcohol withdrawal seizure: Status: Acute (4) Alcohol use disorder: Status: Acute (5) Smoking addiction: Status: Acute (6) Hematoma of right parietal scalp: Status: Acute Reason for Visit Reason for Visit: SEIZURE Hospital Course Hospital Course 31-year-old gentleman with history of alcohol use disorder, history of severe alcohol withdrawal, alcohol withdrawal seizure, was hospitalized for assessment after seizure witnessed by EMS secondary to alcohol withdrawal, last drink was 3 days prior to admission. On presentation awake, alert, with head CT without acute intracranial hemorrhage or edema, but with right lateral parietal calvarial hematoma. No acute cervical spine fractures, diffuse posterior ring of C1, normal variant. Unremarkable chest x-ray. Noted on presentation severe electrolyte deficiencies including potassium of 2.3 despite initial replacement, magnesium of 1.4. Hypophosphatemia, phosphorus 1.8. Provided with replacement electrolytes, started on Librium, Ativan per CIWA protocol, thiamine, folic acid, MVT supplementation. Had no recurrence of seizure in the hospital. Received additional electrolyte replacements today, then this evening requested to go out to smoke, when unable to do so, stated he would like to leave the hospital and that he may come back to the ER later. We discussed with him that he is leaving the hospital prematurely, offered nicot ine replacement, but he declines. He is ambulating in his room, got himself dressed in his street clothes. States that he is feeling much better, is grateful for the treatment he received, but states that now he is wanting to leave, wanting to next pursue further counseling and rehabilitation at [facility] whom he intends to reach out to next. States that he intends to go to his brother's house tomorrow. He appears fully lucid, and verbalized that he understands that he may be risking recurrence of seizure, other complications with electrolyte deficiency including arrhythmia and cardiac arrest, or worsening withdrawal which may lead to further disability or . Discussed also with his brother that he is leaving hospital prematurely, and asked to check up on him, which the brother intends to do. Physical Exam Const: COMMON NORMALS: no acute distress, patient oriented x3 and alert GENERAL APPEARANCE: cooperative and comfortable ORIENTATION/CONSCIOUSNESS: Yes awake HENMT: COMMON NORMALS: oropharynx normal Neck/C-Spine: COMMON NORMALS: no JVD Resp: COMMON NORMALS: normal respiratory effort and clear to auscultation bilaterally AUSCULTATION: clear to auscultation bilaterally Cardio: COMMON NORMALS: no JVD, regular rhythm, S1 normal heart sound present, S2 normal heart sound present and No murmurs present (Cardio) RHYTHM: regular rhythm HEART SOUNDS: S1 normal heart sound present and S2 normal heart sound present GI: COMMON NORMALS: Normal to inspection, nondistended, normoactive bowel sounds present, Soft to palpation and non-tender PALPATION: Yes Soft to palpation Extremity: COMMON NORMALS: no joint enlargement and no pedal edema Neuro: COMMON NORMALS: patient oriented x3 and moves all extremities SENSORIUM/ORIENTATION: Yes alert Skin: COMMON NORMALS: no rashes or lesions noted GENERAL SKIN EXAM: no rashes or lesions noted Discharge Data Data Completed and Pending: Completed Studies During Hospitalization Category Date Time Status CT cervical spin wo con* [id number] Stat Cat Scan 09/15/21 13:[address] head wo con* [id number] Stat Cat Scan 09/15/21 13:09 Completed XR chest 1V rafaela ble [id number] Stat Exams 09/15/21 13:09 Completed Pending at discharge Category Date Time Status Basic Metabolic P jim Timed Lab 09/16/21 14:00 Ordered Complete Blood Co unt w/Auto AM LABS Lab 09/17/21 04:00 Ordered Complete Blood Co unt w/Auto AM LABS Lab 09/18/21 04:00 Ordered Comprehensive Met abolic Panel AM LA BS Lab 09/17/21 04:00 Ordered Comprehensive Met abolic Panel AM LA BS Lab 09/18/21 04:00 Ordered Magnesium AM LABS Lab 09/17/21 04:00 Ordered Magnesium AM LABS Lab 09/18/21 04:00 Ordered Phosphorus AM LAB S Lab 09/17/21 04:00 Ordered Phosphorus AM LAB S Lab 09/18/21 04:00 Ordered Labs from last 24 hours 09/16/21 09/16/21 09/16/21 12:25 04:25 04:25 WBC 4.9 RBC 3.84 L Hgb 12.8 Hct 36.1 L MCV 94.0 MCH 33.3 MCHC 35.5 RDW 18.0 H Plt Count 85 L D MPV 12.5 H Neut % (Auto) 64.1 Lymph % (Auto) 26.1 Stark % (Auto) 8.6 Eos % (Auto) 0.4 Baso % (Auto) 0.4 Neut # (Auto) 3.15 Lymph # (Auto) 1.3 Stark # (Auto) 0.4 Eos # (Auto) 0.0 Baso # (Auto) 0.0 Nucleated RBC % (a uto) 0 Nucleated RBCs # 0.0 Sodium 137 Potassium 3.1 L 2.4 L* Chloride 97 L Carbon Dioxide 30 H Anion Gap 12.4 BUN 6 Creatinine 0.7 GFR Calculation 129.9 Glucose 120 H Calculated Osmolal ity 283 L Calcium 7.5 L Phosphorus 2.4 L 1.8 L Magnesium 1.7 1.6 L Total Bilirubin 1.4 H AST 140 H ALT 72 H Alkaline Phosphata se 179 H Total Protein 5.5 L Albumin 3.4 L Globulin 2.1 09/15/21 21:24 WBC RBC Hgb Hct MCV MCH MCHC RDW Plt Count MPV Neut % (Auto) Lymph % (Auto) Stark % (Auto) Eos % (Auto) Baso % (Auto) Neut # (Auto) Lymph # (Auto) Stark # (Auto) Eos # (Auto) Baso # (Auto) Nucleated RBC % (a uto) Nucleated RBCs # Sodium Potassium 2.6 L* Chloride Carbon Dioxide Anion Gap BUN Creatinine GFR Calculation Glucose Calculated Osmolal ity Calcium Phosphorus Magnesium Total Bilirubin AST ALT Alkaline Phosphata se Total Protein Albumin Globulin Vitals: Last Vital Signs Temp 97.4 F L 09/16/21 12:00 Pulse 90 09/16/21 10:00 Resp 9 L 09/16/21 10:43 BP 117/71 09/16/21 12:00 Pulse Ox 90 09/16/21 08:00 Discharge Plan Discharge Patient Disposition: Left Against Medical Advice Condition: Fair Prescriptions: New folic acid 1 mg Tablet 1 mg PO DAILY Qty: 90 RF: 0 potassium chloride 10 mEq capsule, extended release 10 meq PO DAILY Qty: 30 RF: 0 Vitamin B-1 (mononitrate) 100 mg Tablet 100 mg PO DAILY Qty: 90 RF: 0 magnesium oxide 250 mg magnesium tablet 250 mg PO DAILY Qty: 30 RF: 0 Continued Vitamin B-12 1 tab PO DAILY RF: 0 multivitamin Tablet 1 tab PO DAILY Qty: 90 RF: 0 Discontinued Vitamin B-1 1 tab PO DAILY RF: 0 Discharge Orders: Discharge Order (Routine); Ordered 09/16/21 Ordered By: Salvador Kim Referrals: Gela Martins FNP [Referring] - 4-7 days Patient Instructions: Hypokalemia (GEN), Alcohol Withdrawal (GEN), Hypomagnesemia (GEN), Against Medical Advice (DC) Activity Restrictions/Additional Instructions: Please note you are leaving the hospital prematurely and are at risk of severe disability or due to severe electrolyte deficiency, possibility of recurrence of seizure, worsening alcohol withdrawal, or other complications. There could also be worsening of hematoma on the right side of your scalp. You are encouraged to change her mind and stay to continue your care. Otherwise please either return to the hospital ER at any time, or at least follow-up with your primary doctor at soonest available appointment. Please have your primary doctor recheck electrolyte results. Continue supple mentation of magnesium and potassium, vitamins including thiamine and folic acid. Please continue with your intentions to seek alcohol rehabilitation. Please speak with your doctor for help with quitting smoking. Discharge Attestations Time Spent in Discharge Care*: greater than 30 min Quality Metrics Clinical Quality Measures During this hospital stay, did patient experience: None Coding Level of Care Code Acute Chg FW DC note Diagnoses Hypokalemia E87.6 Hypomagnesemia E83.42 Alcohol withdrawal seizure F10.239; R56.9 Alcohol use disorder Smoking addiction F17.200 Hematoma of right parietal scalp S00.03XA
== END 2021-09-16 18:40 | disposition left against medical advice (07) | DRG 894 ==
LOC: ER 13:21 → ICU 17:50
PROVIDERS: Hospitalist; Admitting Provider Internal Medicine; Emergency Provider Emergency Medicine; Visit Provider Internal Medicine
DX: F10.239 Alcohol dependence with withdrawal, unspecified (principal); R56.9 Unspecified convulsions; I10 Essential (primary) hypertension; E83.42 Hypomagnesemia; E87.6 Hypokalemia; R00.0 Tachycardia, unspecified; S00.03XA Contusion of scalp, initial encounter; X58.XXXA Exposure to other specified factors, initial encounter; F17.210 Nicotine dependence, cigarettes, uncomplicated; Z23 Encounter for immunization; Z53.29 Procedure and treatment not carried out because of patient's decision for other reasons
CPT/HCPCS: 36415; 70450; 71045; 72125; 80053; 80306; 80307; 81001; 83735; 84100; 84132; 85025; 90471; 90686; 90714; 93005; 96365; 96367; 96372; 96375; 99285; C9113; J1953; J3411; J3475; J3480; J7030

== ENCOUNTER 2021-09-27 09:40 | Inpatient (IN) | payer BC, SELFPAY ==
[2021-09-27] VITALS (26 sets, daily range): BP systolic 121–208; BP diastolic 78–140; PULSE 82–126; RESP 15–26; TEMP 36.6–37.1; O2SAT 92–98; BMI 29.7; BMI 29.2
--- NOTE | 2021-09-27 09:45 | XR_ITS ---
WS: [id number] Exam: XR chest 1V portable [id number] Date/Time of Exam: 09/27/2021 9:48 AM Reason For Exam: dyspnea/cough Comparison 09/15/2021. The lungs are clear and fully inflated. Normal cardiomediastinal silhouette. Mild chronic elevation o f the right diaphragm. No pleural effusions. Monitoring leads superimpose the chest. Unremarkable bon y structures. XR/XR chest 1V portable [id number] IMPRESSION: 1. No acute cardiopulmonary finding.
--- NOTE | 2021-09-27 10:06 | W.ED.ALCOHOL ---
HPI - Alcohol General: Chief Complaint: Seizure Stated Complaint: POST SEIZURE, ETOH Time Seen by Provider: 09/27/21 09:44 History of Present Illness: HPI narrative: 31-year-old male comes in post seizure. Patient is an extremely heavy drinker he has been drinking for years he was hospitalized earlier this month after withdraw seizure. Typically drink of more than 1/5 of liquor per day. He admits to binge drinking will drink for several days if not up to a week at a time and then he stops for several days he had just finished a binge he had stopped and felt like he was can have a seizure then did have a seizure earlier this morning so he started drinking heavily after that to try to prevent the next seizure. His previous hospitalization notes were reviewed including the discharge summary where it appears he left AGAINST MEDICAL ADVICE from the ICU after being made an inpatient for withdrawal seizures. MD complaint: alcohol intoxication and alcohol dependence Chronic alcohol use: Yes Previous visits for alcohol intoxication: Yes Recent trauma: No Associated symptoms: Reports vomiting; Deny abdominal pain, depression, diaphoresis, hematemesis, involuntary movements, melena, nausea, seizure-like activity, suicidal ideation or syncope Treatments prior to arrival: none Review of Systems Const: Denies: diaphoresis ENMT: Denies: throat pain, ear or mastoid pain, nasal discharge or nasal congestion Card: Denies: syncope Resp: Denies: dyspnea, productive cough or non-productive cough GI: Reports: vomiting; Denies: abdominal pain, nausea, hematemesis or melena : Denies: flank pain, dysuria, urinary frequency or urinary urgency Skin/Breast: Denies: rash or pruritus Neuro: Denies: seizure-like activity or involuntary movements Psych: Denies: depression or suicidal ideation PFSH ED PFSH: Medical History Alcohol withdrawal seizure Anxiety Depression HTN (hypertension) Smoking addiction Family History Father Alcoholic Other CAD (coronary artery disease) Cancer Social History (Updated 09/27/21 @ 12:26 by Moi Barnett MD) Smoking and tobacco status: current every day smoker Alcohol intake: current Substance/Drug Use: never Physical Exam Const: COMMON NORMALS: no acute distress GENERAL APPEARANCE: cooperative and comfortable HENMT: COMMON NORMALS: normocephalic, atraumatic and hearing grossly normal bilaterally HEAD & SCALP: normocephalic and atraumatic Neck/C-Spine: COMMON NORMALS: no JVD Resp: COMMON NORMALS: normal respiratory effort, No retractions, No use of accessory muscles and clear to auscultation bilaterally AUSCULTATION: clear to auscultation bilaterally Cardio: COMMON NORMALS: no JVD, regular rate, regular rhythm and No murmurs present (Cardio) RATE: regular rate RHYTHM: regular rhythm GI: COMMON NORMALS: Soft to palpation and No hepatosplenomegaly present AUSCULTATION: Yes normoactive bowel sounds PALPATION: Yes Soft to palpation, No Tenderness to palpation present (GI), No Guarding due to palpation present (GI) and Yes No hepatosplenomegaly present Extremity: COMMON NORMALS: normal to inspection, capillary refill normal, no clubbing, cyanosis or edema, no calf tenderness and no pedal edema Skin: COMMON NORMALS: no rashes or lesions noted GENERAL SKIN EXAM: no rashes or lesions noted Course Vital Signs: Vital signs: Vital Signs Temperature 97.7 F 09/29/21 09:58 Pulse Rate 108 H 09/29/21 09:58 Respiratory Rate 17 09/29/21 09:58 Blood Pressure 174/110 09/29/21 09:58 Pulse Oximetry 97 09/29/21 09:58 MDM - Alcohol MDM Narrative: Medical decision making narrative: Patient having withdrawal seizures from alcohol abstinence discussed with hospitalist will admit labs imaging and EKGs reviewed on chart. Orders written. Lab Data: Labs: Lab Results 09/27/21 09/27/21 09/27/21 10:24 10:24 10:24 WBC 9.4 10^3/uL 10^3/ uL (4.0-10.0) RBC 4.91 10^6/uL 10^6 /uL (4.1-5.3) Hgb 16.4 g/dL g/dL (11.7-16.6) Hct 44.7 % % (42.0-52.0) MCV 91.0 fl fl (80-94) MCH 33.4 pg pg (28.0-34.0) MCHC 36.7 g/dL H g/dL (30.0-36.0) RDW 16.5 % H % (12.1-15.1) Plt Count 115 10^3/cmm L 10 ^3/cmm (130-400) MPV 10.7 fL H fL (7.4-10.4) Neut % (Auto) 92.7 % % Lymph % (Auto) 2.8 % % [place] % (Auto) 3.9 % % Eos % (Auto) 0.1 % % Baso % (Auto) 0.2 % % Neut # (Auto) 8.67 10^3/uL H 10 ^3/uL (1.8-7.7) Lymph # (Auto) 0.3 10^3/uL L 10^ 3/uL (0.8-4.8) [place] # (Auto) 0.4 10^3/uL 10^3/ uL (0.2-0.9) Eos # (Auto) 0.0 10^3/uL 10^3/ uL (0.0-0.8) Baso # (Auto) 0.0 10^3/uL 10^3/ uL (0.0-0.1) Nucleated RBC % (a uto) 0 % % Nucleated RBCs # 0.0 /100WBC /100W BC Sodium 140 mmol/L mmol/L (136-145) Potassium 3.0 mmol/L L mmol /L (3.5-5.1) Chloride 95 mmol/L L mmol/ L (98-107) Carbon Dioxide 18 mmol/L L mmol/ L (22-29) Anion Gap 30.0 H (5-19) BUN 5 mg/dL L mg/dL (6-20) Creatinine 0.6 mg/dL L mg/dL (0.7-1.2) GFR Calculation 155.2 mL/min H mL /min (90-130) Glucose 148 mg/dL H mg/dL (65-115) Calculated Osmolal ity 290 mOsm/kg mOsm/ kg (285-295) Lactic Acid Lactic Acid (Sepsi s) Calcium 8.3 mg/dL L mg/dL (8.5-10.5) Magnesium 0.8 mg/dL L* mg/d L (1.7-2.3) Total Bilirubin 2.2 mg/dL H mg/dL (0.15-1.2) AST 129 U/L H U/L (0-40) ALT 64 U/L H U/L (0-41) Alkaline Phosphata se 253 IU/L H IU/L (40-130) Ammonia Creatine Kinase 85 U/L U/L (39-308) Total Protein 7.4 g/dL g/dL (6.6-8.7) Albumin 4.3 g/dL g/dL (3.5-5.2) Globulin 3.1 g/dL g/dL (1.3-4.6) Lipase 13 U/L U/L (13-60) Urine Color Urine Appearance Urine pH Ur Specific Gravit y Urine Protein Urine Glucose (UA) Urine Ketones Urine Blood Urine Nitrate Urine Bilirubin Urine Urobilinogen Ur Leukocyte Bety ase Urine RBC Urine WBC Ur Squamous Epith Cells Calcium Oxalate Cr ystal Amorphous Sediment Urine Bacteria Ethyl Alcohol 75 mg/dL H mg/dL (0-10) 09/27/21 09/27/21 09/27/21 10:56 11:15 12:21 WBC RBC Hgb Hct MCV MCH MCHC RDW Plt Count MPV Neut % (Auto) Lymph % (Auto) [place] % (Auto) Eos % (Auto) Baso % (Auto) Neut # (Auto) Lymph # (Auto) [place] # (Auto) Eos # (Auto) Baso # (Auto) Nucleated RBC % (a uto) Nucleated RBCs # Sodium Potassium Chloride Carbon Dioxide Anion Gap BUN Creatinine GFR Calculation Glucose Calculated Osmolal ity Lactic Acid 4.7 mmol/L H* mmo l/L (0.5-2.2) Lactic Acid (Sepsi s) Calcium Magnesium Total Bilirubin AST ALT Alkaline Phosphata se Ammonia 33 umol/L umol/L (16-60) Creatine Kinase Total Protein Albumin Globulin Lipase Urine Color Dark yellow (Yellow) Urine Appearance Cloudy (CLEAR) Urine pH 6.5 (5-7) Ur Specific Gravit y 1.020 (1.005-1.030) Urine Protein Trace (Negative) Urine Glucose (UA) 2+ H (Normal) Urine Ketones 2+ H (Negative) Urine Blood Neg (Negative) Urine Nitrate Negative (Negative) Urine Bilirubin 1+ H (Negative) Urine Urobilinogen 4+ mg/dL H mg/dL (Negative) Ur Leukocyte Bety ase Negative (Negative) Urine RBC None /hpf /hpf (0-2) Urine WBC None /hpf /hpf (0-5) Ur Squamous Epith Cells 0-4 /hpf H /hpf (0-5) Calcium Oxalate Cr ystal 20 /hpf /hpf Amorphous Sediment Not Reportable Urine Bacteria Trace /hpf /hpf (NONE) Ethyl Alcohol 09/27/21 12:57 WBC RBC Hgb Hct MCV MCH MCHC RDW Plt Count MPV Neut % (Auto) Lymph % (Auto) [place] % (Auto) Eos % (Auto) Baso % (Auto) Neut # (Auto) Lymph # (Auto) [place] # (Auto) Eos # (Auto) Baso # (Auto) Nucleated RBC % (a uto) Nucleated RBCs # Sodium Potassium Chloride Carbon Dioxide Anion Gap BUN Creatinine GFR Calculation Glucose Calculated Osmolal ity Lactic Acid Lactic Acid (Sepsi s) 3.5 mmol/L H mmol /L (0.5-2.2) Calcium Magnesium Total Bilirubin AST ALT Alkaline Phosphata se Ammonia Creatine Kinase Total Protein Albumin Globulin Lipase Urine Color Urine Appearance Urine pH Ur Specific Gravit y Urine Protein Urine Glucose (UA) Urine Ketones Urine Blood Urine Nitrate Urine Bilirubin Urine Urobilinogen Ur Leukocyte Bety ase Urine RBC Urine WBC Ur Squamous Epith Cells Calcium Oxalate Cr ystal Amorphous Sediment Urine Bacteria Ethyl Alcohol Discharge Plan Discharge Patient Disposition: Admitted As Inpatient Admit Provider: Moi Barnett Clinical Impression: Alcohol withdrawal, Hypokalemia, Transaminitis, Chronic alcohol dependence, continuous, Seizure, Hypomagnesemia Condition: Stable Discharge Diet: Regular Discharge Activity: Increase activity as tolerated Coding Level of Care Code ED Healthcare Risk Control Consultant for [facility] Fwd Exam Comprehensive
[2021-09-27] MEDS: LORazepam 2 mg/mL INJ 1 mL IVP (10:21)
[2021-09-27] MEDS: ondansetron 2 mg/ML SDV 2 mL 4 MG IVP ×2 (10:21→14:44)
[2021-09-27] MEDS: sodium chloride 0.9% 1,000 ML 999 ML IV ×2 (10:27→10:34)
--- NOTE | 2021-09-27 10:29 | PC.PHAR ---
pt states he takes care of his own medications-pt states he has an old rx for hydroxyzine and takes prn-denise states the pt hasnt picked up the folic acid,mag ox,of kcl 10meq-pt states he use to take quetiapine at hs pt states he hasnt taken in a month ext med history shows last filled 03/28/21 30d/s
[2021-09-27 10:36] LABS: Basophils % 0.2 %; Eosinophils % 0.1 %; Hematocrit 44.7 % (42.0-52.0); Hemoglobin 16.4 g/dL (11.7-16.6); Lymphocytes # 0.3 10^3/uL (0.8-4.8); Lymphocytes % 2.8 %; Mean Corpuscular HGB Conc 36.7 g/dL (30.0-36.0); Mean Corpuscular Hemoglobin 33.4 pg (28.0-34.0); Mean Platelet Volume 10.7 fL (7.4-10.4); Monocytes # 0.4 10^3/uL (0.2-0.9); Monocytes % 3.9 %; Neutrophils # 8.67 10^3/uL (1.8-7.7); Neutrophils % 92.7 %; Nucleated Red Blood Cells % 0 %; Platelet Count 115 10^3/cmm (130-400); Red Blood Count 4.91 10^6/uL (4.1-5.3); Red Cell Distribution Width 16.5 % (12.1-15.1); White Blood Count 9.4 10^3/uL (4.0-10.0)
[2021-09-27 10:52] LABS: Alanine Aminotransferase 64 U/L (0-41); Albumin Level 4.3 g/dL (3.5-5.2); Alcohol Level 75 mg/dL (0-10); Alkaline Phosphatase 253 IU/L (40-130); Aspartate Amino Transferase 129 U/L (0-40); Blood Urea Nitrogen 5 mg/dL (6-20); Calcium 8.3 mg/dL (8.5-10.5); Carbon Dioxide 18 mmol/L (22-29); Chloride 95 mmol/L (98-107); Creatine Phosphokinase 85 U/L (39-308); Globulin 3.1 g/dL (1.3-4.6); Glomerular Filtration Rate 155.2 mL/min (90-130); Glucose 148 mg/dL (65-115); Lipase 13 U/L (13-60); Osmolality Calculated 290 mOsm/kg (285-295); Sodium 140 mmol/L (136-145); Total Bilirubin 2.2 mg/dL (0.15-1.2); Total Protein 7.4 g/dL (6.6-8.7)
[2021-09-27 11:00] LABS: Slide Review Slide Review Perform
--- NOTE | 2021-09-27 11:23 | PC.NURSE ---
Addendum entered by Anna Springer RN 09/27/21 11:28: Per EMS pts blood glucose 259 Original Note: Pt arrived via EMS from home where he lives alone. EMS states pt called PD for a welfare check after drinkng 20 small bottles of Cinnamon Fireball. EMS reports pt was recently dx with seizures related to alcohol consumption and had been admitted to the ICU last week for seizures and alcohol withdrawel, pt left AMA after 3 days. Pt reports he felt a seizure coming on this morning and tried drinking to keep the seizure from happening but was unsuccessful. Pt reports vomiting and not being able to keep anything down, including water. EMS reports pt was able to ambulate to the stretcher, pt noted to have mild tremors at that time and c/o mild WALLACE. EMS gae 150mL bolus NS, 4mg Zofran and 100mg Thyamine en route. Pt A/O, vs taken, pt placed on monitor.
[2021-09-27 11:30] LABS: Lactic Sepsis W/Reflex 4.7 mmol/L (0.5-2.2)
[2021-09-27] MEDS: lidocaine 1% 5 ML in potassium chloride premix 100 ML 25 ML IV ×2 (11:47→15:41)
[2021-09-27 11:58] LABS: Magnesium 0.8 mg/dL (1.7-2.3)
[2021-09-27 12:02] LABS: Add Urine Microscopic? YES; Bilirubin Urine 1+ (Negative); Blood Urine Neg (Negative); Glucose Urine UA 2+ (Normal); Ketones Urine 2+ (Negative); Leukocyte Esterase Urine Negative (Negative); Nitrate Urine Negative (Negative); Protein Urine Trace (Negative); Urine Appearance Cloudy (CLEAR); Urine Color Dark Yellow (Yellow); Urobilinogen Urine 4+ mg/dL (Negative); pH Urine 6.5 (5-7)
[2021-09-27 12:03] LABS: Add Urine Culture? No; Bacteria Urine TRACE /hpf; Calcium Oxalate Crystals Urine 20 /hpf; Squamous Epithelial Cell Urine 0-4 /hpf (0-5)
--- NOTE | 2021-09-27 12:23 | P.HP_ITS ---
Providers/Chief Complaint Chief Complaint: POST SEIZURE, ETOH History of Present Illness Dave Gaston is a 31 year old male alcoholic who reports he had a seizure this morning. He reports he knew this as he has had several in the past and it causes significant muscle discomfort, lethargy. He reported he was concerned he might have another so started drinking some alcohol. He had recently stopped drinking several days before. He has been admitted in the past for alcohol withdrawal, alcohol withdrawal seizures. He has left AGAINST MEDICAL ADVICE in the past. He reports currently he believes he is withdrawing. He reports he is willing to do AA as an outpatient, but has no interest in any inpatient rehabilitation. He is very concerned he may have another seizure so presented to the emergency department. No history of fever. No cough. In the emergency department he received some folic acid, Ativan, multivitamin, IV fluids, thiamine, and some potassium. Review of Systems General: Reports: 10 or more systems reviewed and unremarkable except in HPI and below Const: Reports: fatigue; Denies: fever(s) or chills Eyes: Denies: change in vision ENMT: Denies: throat pain Card: Denies: chest pain Resp: Denies: dyspnea or productive cough GI: Reports: nausea and vomiting; Denies: abdominal pain or hematochezia : Denies: flank pain Musc: Reports: joint pain; Denies: neck pain Skin/Breast: Denies: rash Neuro: Reports: other (Suspected seizure at home) Psych: Denies: anxiety Endo: Denies: polyuria Robert/Lymph: Denies: easy bruising All/Imm: Denies: urticaria Medications/Allergies Home Medications Medication Instructions Recorded Confirmed Last Taken Type Vitamin B-12 1 tab PO DAILY 09/15/21 09/27/21 Unknown History folic acid 1 mg PO DAILY 09/27/21 09/27/21 Unknown History hydroxyzine pamoate 25 - 100 mg PO BID PRN 09/27/21 09/27/21 Unknown History magnesium oxide 250 mg PO DAILY 09/27/21 09/27/21 Unknown History multivitamin 1 tab PO DAILY 09/27/21 09/27/21 Unknown History potassium chloride 10 meq PO DAILY 09/27/21 09/27/21 Unknown History thiamine mononitrate (vit B1) 100 mg PO DAILY 09/27/21 09/27/21 Unknown History [Vitamin B-1 (mononitrate)] Allergies Allergy/AdvReac Type Severity Reaction Status Date / Time No Known Allergies Allergy Verified 09/27/21 10:27 PFSH Acute PFSH: Medical History Alcohol withdrawal seizure Anxiety Depression HTN (hypertension) Smoking addiction Family History Father Alcoholic Other CAD (coronary artery disease) Cancer Social History (Updated 09/27/21 @ 12:26 by Moi Barnett MD) Smoking and tobacco status: current every day smoker Alcohol intake: current Substance/Drug Use: never Vitals/I&O/Wt Last Vital Signs Temp 98.7 F 09/27/21 11:13 Pulse 103 H 09/27/21 11:13 Resp 24 H 09/27/21 11:13 BP 167/103 09/27/21 11:13 Pulse Ox 97 09/27/21 11:13 09/26/21 09/27/21 09/27/21 22:59 06:59 14:59 Intake Total 116.55 / 116.55 Balance 116.55 / 116.55 Weight last 48 hrs Weight 93.894 kg Physical Exam Narrative: EXAM NARRATIVE: General exam shaky appearing white male HEENT: Pupils equally round. Sclera injected. Oropharynx clear. Atraumatic and normocephalic Neck is supple without lymphadenopathy or thyromegaly Cardiovascular slight tachycardia, no murmur Lungs clear no wheezing or crackles Abdomen is soft. No specific tenderness. Positive bowel sounds. exam is deferred Extremities no cyanosis clubbing or edema, cap refill brisk Skin no rash Neuro no obvious focal deficits. Data : 09/27/21 10:24 09/27/21 10:24 Other data: Lactic acid 4.7, calcium 8.3 Magnesium 0.8 Total bilirubin 2.2, AST 129, ALT 64, alk phos 253 CK 85 Albumin 4.3 Urinalysis with 4+ urobilinogen, 0-4 squamous, 2+ ketones Alcohol level 75 Chest x-ray no infiltrate Previous hepatitis panel in March negative. Abdominal pelvis CT at that point demonstrated fatty liver with no mass and no duct dilation A&P Assessment and plan (1) Alcohol withdrawal: Significant alcohol withdrawal Initiate thiamine, multivitamin, folate CIWA protocol. Include Librium as needed. Monitor for any recurrent seizures Correct electrolyte abnormalities Currently refusing anything other than AAA as an outpatient Current withdrawal is life-threatening considering concern of seizure, major electrolyte abnormalities and he will need to be monitored in the ICU as a full admission. May ultimately require Precedex Status: Acute (2) Alcohol withdrawal seizure: See above Status: Acute (3) Transaminitis: Appears to be secondary to alcohol. Previous CT scan abdomen and pelvis and hepatitis panel did not delineate any other cause. Continue to follow Check ammonia level. Status: Acute (4) Acute hypokalemia: Supplement IV Status: Acute (5) Hypomagnesemia: Supplement IV Status: Acute (6) Smoking addiction: Encourage smoking cessation Status: Acute Additional A&P Information Full code Lovenox for DVT prophylaxis Pepcid for GI prophylaxis Attestations Medical Necessity Statement*: Will need greater than 2 midnight stay for evaluation and treatment of alcohol withdrawal. Time Spent in Patient Care: Greater than 35 minutes Coding Level of Care Code Acute Systems Administrator for [facility] Fwd Diagnoses Alcohol withdrawal F10.239 Alcohol withdrawal seizure F10.239; R56.9 Transaminitis R74.01 Acute hypokalemia E87.6 Hypomagnesemia E83.42 Smoking addiction F17.200
[2021-09-27 12:46] LABS: Reflex Lactate Order REFLEX LACTIC ORDERD
[2021-09-27 12:53] LABS: Ammonia 33 umol/L (16-60)
[2021-09-27 13:23] LABS: Lactic Acid level (Lactate) 3.5 mmol/L (0.5-2.2)
--- NOTE | 2021-09-27 13:26 | PC.NURSE ---
duplicate orders in Dec for medication. Per Dr. Clemens ok to discontinue duplicates
--- NOTE | 2021-09-27 13:50 | PC.NURSE ---
Report called to floor, given to ELTON Feng
[2021-09-27] MEDS: magnesium sulfate premix 4 GM/100 ML PREMIX IV (14:46)
[2021-09-27] MEDS: famotidine 20 mg/2 mL INJ IVP (15:01)
[2021-09-27] MEDS: enoxaparin 40 mg/0.4 mL Syringe SUBCUT (15:01)
[2021-09-27] MEDS: sodium chlor 0.9% + KCl 20 mEq 20 MEQ/1,000 ML BAG 100 MEQ IV (15:02)
--- NOTE | 2021-09-27 15:20 | PC.NURSE ---
1415 Pt arrived from ER via gurney per ER staff. Moved self to bed, connected to ICU monitor. VSS. Hypertensive. States that BP is normally high after stopping drinking . AAOx4. c/o n/v, some R rib pain, mild anxiety and depression. RAC [address] with K+ and fluids infusing. 24g PIV to L shoulder in place, flushes freely. Pt able to use urinal. Vomited approx 500ml greenish emesis. Zofran given per orders. SCDS placed on pt, CLWR, oriented to room and educated to use CL to ask for assistance. Will monitor.
--- NOTE | 2021-09-27 16:46 | PC.NURSE ---
Banana bag infusing per orders. Hydralazine given per PRN orders.
[2021-09-27] MEDS: hyDRALAzine 20 mg/mL INJ 1 mL 10 MG IVP (16:50)
--- NOTE | 2021-09-27 18:41 | PC.NURSE ---
Pt resting in bed. No further episodes of N/V. VSS. BP slightly lower. Will monitor.
[2021-09-27 21:03] LABS: Blood Urea Nitrogen 4 mg/dL (6-20); Calcium 7.6 mg/dL (8.5-10.5); Carbon Dioxide 22 mmol/L (22-29); Chloride 100 mmol/L (98-107); Glomerular Filtration Rate 155.2 mL/min (90-130); Glucose 95 mg/dL (65-115); Magnesium 1.7 mg/dL (1.7-2.3); Osmolality Calculated 281 mOsm/kg (285-295); Sodium 137 mmol/L (136-145)
[2021-09-27 21:09] LABS: Anion Gap 18.7 (5-19); Potassium 3.7 mmol/L (3.5-5.1)
[2021-09-28] VITALS (30 sets, daily range): BP systolic 122–173; BP diastolic 79–139; PULSE 71–108; RESP 13–33; TEMP 36.4–36.9; O2SAT 91–97
[2021-09-28] MEDS: sodium chlor 0.9% + KCl 20 mEq 20 MEQ/1,000 ML BAG 100 MEQ IV ×3 (00:42→21:30)
[2021-09-28] MEDS: famotidine 20 mg/2 mL INJ IVP (01:58)
[2021-09-28 05:12] LABS: Basophils % 0.3 %; Eosinophils % 0.6 %; Hematocrit 39.3 % (42.0-52.0); Hemoglobin 13.4 g/dL (11.7-16.6); Lymphocytes # 0.9 10^3/uL (0.8-4.8); Lymphocytes % 27.7 %; Mean Corpuscular HGB Conc 34.1 g/dL (30.0-36.0); Mean Corpuscular Hemoglobin 32.9 pg (28.0-34.0); Mean Corpuscular Volume 96.6 fl (80-94); Mean Platelet Volume 11.3 fL (7.4-10.4); Monocytes # 0.2 10^3/uL (0.2-0.9); Monocytes % 6.7 %; Neutrophils # 2.02 10^3/uL (1.8-7.7); Neutrophils % 64.4 %; Nucleated Red Blood Cells % 0 %; Platelet Count 69 10^3/cmm (130-400); Red Blood Count 4.07 10^6/uL (4.1-5.3); Red Cell Distribution Width 16.3 % (12.1-15.1); White Blood Count 3.1 10^3/uL (4.0-10.0)
[2021-09-28 05:45] LABS: Magnesium 1.5 mg/dL (1.7-2.3)
[2021-09-28 05:55] LABS: Alanine Aminotransferase 49 U/L (0-41); Albumin Level 3.4 g/dL (3.5-5.2); Alkaline Phosphatase 197 IU/L (40-130); Aspartate Amino Transferase 126 U/L (0-40); Blood Urea Nitrogen 3 mg/dL (6-20); Calcium 7.5 mg/dL (8.5-10.5); Carbon Dioxide 23 mmol/L (22-29); Chloride 100 mmol/L (98-107); Globulin 2.2 g/dL (1.3-4.6); Glomerular Filtration Rate 155.2 mL/min (90-130); Glucose 86 mg/dL (65-115); Osmolality Calculated 278 mOsm/kg (285-295); Sodium 136 mmol/L (136-145); Total Protein 5.6 g/dL (6.6-8.7)
--- NOTE | 2021-09-28 07:17 | PC.NURSE ---
0700 Report received, assessment completed. VSS. AAOx4, denies any pain or n/v. Makes all needs known. Will monitor.
[2021-09-28] MEDS: magnesium sulfate premix 2 GM/50 ML PIGGYBACK IV (08:15)
[2021-09-28] MEDS: lidocaine 1% 5 ML in potassium chloride premix 100 ML 25 ML IV (08:16)
[2021-09-28] MEDS: potassium chloride ER 20 mEq Tablet 40 MEQ PO (08:16)
[2021-09-28] MEDS: folic acid 1 mg Tablet PO (08:16)
[2021-09-28] MEDS: multivitamin therapeutic Tablet 1 TAB PO (08:16)
[2021-09-28] MEDS: thiamine 100 mg Tablet PO (08:16)
[2021-09-28] MEDS: hyDRALAzine 20 mg/mL INJ 1 mL 10 MG IVP (08:58)
--- NOTE | 2021-09-28 09:42 | P.PN_ITS ---
Subjective Subjective: Interval history: Dave reports he feels a little bit better. Nursing has had to give him hydralazine on occasion for his blood pressure but he is not scored high enough to need any Ativan. He feels a little less jittery. He comments that his blood pressure is always high when he stops drinking but usually goes back to normal in less than a week. Medications: Reviewed: Yes Vitals/I&O/Wt Last Vital Signs Temp 98.5 F 09/28/21 08:00 Pulse 101 H 09/28/21 09:00 Resp 20 H 09/28/21 09:00 BP 173/120 09/28/21 09:00 Pulse Ox 96 09/28/21 09:00 09/27/21 09/28/21 09/28/21 22:59 06:59 14:59 Intake Total 2273.5 / 3390.05 966.667 / 4356.717 770 / 770 Output Total 800 / 800 1300 / 2100 425 / 425 Balance 1473.5 / 2590.05 -333.333 / 2256.717 345 / 345 Weight last 48 hrs Weight 94.432 kg Weight 92.334 kg Weight 93.894 kg Physical Exam Narrative: EXAM NARRATIVE: General exam slight tremor Neck is supple without lymphadenopathy or thyromegaly Cardiovascular regular rate and rhythm, tachycardia improved Lungs clear no wheezing or crackles Abdomen is soft. No specific tenderness. Positive bowel sounds. Extremities no cyanosis clubbing or edema, cap refill brisk Data : 09/28/21 04:44 09/28/21 04:44 A&P Assessment and plan (1) Alcohol withdrawal: Significant alcohol withdrawal. This may be slightly improved Continue thiamine, multivitamin, folate Continue CIWA protocol. Include Librium as needed. Cannot guarantee withdrawal symptoms are over Monitor for any recurrent seizures Correct electrolyte abnormalities Currently refusing anything other than AAA as an outpatient At this point may transfer to second floor Status: Acute (2) Alcohol withdrawal seizure: No recurrence in the hospital Status: Acute (3) Transaminitis: Appears to be secondary to alcohol. Previous CT scan abdomen and pelvis and hepatitis panel did not delineate any other cause. Continue to follow Ammonia level checked and normal Status: Acute (4) Acute hypokalemia: Still significant hypokalemia. Supplement heavily today. Status: Acute (5) Hypomagnesemia: Supplement again today Status: Acute (6) Smoking addiction: Encourage smoking cessation Status: Acute Additional A&P Information Significant hypertension. Monitor for withdrawal. Hydralazine. Full code Lovenox for DVT prophylaxis Pepcid for GI prophylaxis Possible discharge tomorrow Advance to regular diet Attestations Medical Necessity Statement*: Needs continued hospitalization to supplement electrolyte derangement and monitor for for further withdrawal, and treatment of marked elevation of blood pressure Coding Level of Care Code Acute Wax Room Supervisor for [facility] Fwd Diagnoses Alcohol withdrawal F10.239 Alcohol withdrawal seizure F10.239; R56.9 Transaminitis R74.01 Acute hypokalemia E87.6 Hypomagnesemia E83.42 Smoking addiction F17.200
--- NOTE | 2021-09-28 09:57 | PC.CHAP ---
Pastoral Care Encounter/Spiritual Assessment Type of Contact [] Declined phototypesetter operator visit [] Patient/Family/Request visit [] Outpatient visit [] Follow-up visit [] Physician referral [] Code/Alert [x] Routine visit [] Staff referral [] Actively dying [] Patient sleeping [] Family support [] [] Out of room [] Palliative care [] [] Receiving care in room [] Pre-surgical visit [] Trauma [] Long length of stay [x] ICU visit [] Other: Relational/Emotional Strength [] Patient feels connected with others/family/visitors/staff [] Distress [] Loneliness/isolation [] Abandonment Spirituality of Patient [] Person of Nilsa [] Attends Adventism of their Nilsa [] Believes in Prayer [] Reads Bible or Buddhist materials [] There are Spiritual issues to be addressed [place]aver Interventions [x] Prayer [x] Active listening [x] Non-anxious presence [x] Spiritual/emotional support [] Crisis/trauma care [] Spiritual counseling [] Bereavement support [] Provided bereavement packet [] Provided Bible/devotional materials [] Provided toy/stuffed animal, coloring book to patient or family member [] Provided Communion [] Anointing/[place] [] Salvation [x] Completed spiritual assessment [] Other: Impact on Illness or Injury [] Angry [] Fearful [] Anxious [] Often cries [] Exhaustion [] Unable to work [] Unable to attend lutheran [] Unable to walk/stand [] Unable to read [] Unable to drive [] Unable to eat/drink [] Unable to sleep [] Unable to be with family [] Patient intubated [] Other: Summary patient packing clothing.. states he is being moved to med surg. Time spent with patient 5 min
--- NOTE | 2021-09-28 13:21 | PC.NURSE ---
Report called to Susie CONDE. Pt transported with IVF disconnected. Nurse at bedside.
[2021-09-28] MEDS: enoxaparin 40 mg/0.4 mL Syringe SUBCUT (13:48)
[2021-09-28] MEDS: famotidine 20 mg Tablet PO (17:09)
[2021-09-29] VITALS: BP 137/88; PULSE 81; RESP 19; TEMP 37; O2SAT 96
[2021-09-29 04:00] VITALS: BP 133/94; PULSE 93; RESP 19; TEMP 37; O2SAT 95
[2021-09-29 05:23] LABS: Basophils % 0.7 %; Eosinophils % 0.7 %; Hematocrit 40.5 % (42.0-52.0); Hemoglobin 13.1 g/dL (11.7-16.6); Mean Corpuscular HGB Conc 32.3 g/dL (30.0-36.0); Mean Corpuscular Hemoglobin 33.9 pg (28.0-34.0); Mean Corpuscular Volume 104.7 fl (80-94); Mean Platelet Volume 12.4 fL (7.4-10.4); Monocytes # 0.2 10^3/uL (0.2-0.9); Monocytes % 7.5 %; Neutrophils # 1.67 10^3/uL (1.8-7.7); Neutrophils % 56.8 %; Nucleated Red Blood Cells % 0 %; Platelet Count 53 10^3/cmm (130-400); Red Blood Count 3.87 10^6/uL (4.1-5.3); Red Cell Distribution Width 15.9 % (12.1-15.1); White Blood Count 2.9 10^3/uL (4.0-10.0)
[2021-09-29 05:43] LABS: Albumin Level 3.5 g/dL (3.5-5.2); Alkaline Phosphatase 186 IU/L (40-130); Blood Urea Nitrogen 4 mg/dL (6-20); Calcium 7.9 mg/dL (8.5-10.5); Carbon Dioxide 19 mmol/L (22-29); Chloride 102 mmol/L (98-107); Globulin 2.6 g/dL (1.3-4.6); Glomerular Filtration Rate 191.5 mL/min (90-130); Glucose 84 mg/dL (65-115); Magnesium 1.4 mg/dL (1.7-2.3); Osmolality Calculated 276 mOsm/kg (285-295); Sodium 135 mmol/L (136-145); Total Bilirubin 1.8 mg/dL (0.15-1.2); Total Protein 6.1 g/dL (6.6-8.7)
[2021-09-29 05:48] LABS: Alanine Aminotransferase 58 U/L (0-41); Anion Gap 18.2 (5-19); Aspartate Amino Transferase 188 U/L (0-40); Potassium 4.2 mmol/L (3.5-5.1)
[2021-09-29] MEDS: sodium chlor 0.9% + KCl 20 mEq 20 MEQ/1,000 ML BAG 100 MEQ IV (06:30)
[2021-09-29 07:43] VITALS: BP 174/110; PULSE 108; RESP 17; TEMP 36.5; O2SAT 97
--- NOTE | 2021-09-29 07:46 | PC.NURSE ---
Nurse notified of high BP.
[2021-09-29] MEDS: magnesium sulfate premix 2 GM/50 ML PIGGYBACK IV (07:51)
[2021-09-29] MEDS: folic acid 1 mg Tablet PO (07:58)
[2021-09-29] MEDS: thiamine 100 mg Tablet PO (07:58)
[2021-09-29] MEDS: multivitamin therapeutic Tablet 1 TAB PO (07:58)
[2021-09-29] MEDS: famotidine 20 mg Tablet PO (07:58)
--- NOTE | 2021-09-29 08:22 | PM.DCS ---
Discharge Providers Date of Admission: 09/27/21 14:22 Date of Discharge: September 29, 2021 Attending Provider at Admission: Moi Barnett MD Attending Provider at Discharge: Moi Barnett MD Diagnoses at Discharge Discharge Diagnosis (1) Alcohol withdrawal: Status: Acute (2) Alcohol withdrawal seizure: Status: Acute (3) Transaminitis: Status: Acute (4) Acute hypokalemia: Status: Acute (5) Hypomagnesemia: Status: Acute (6) Smoking addiction: Status: Acute Reason for Visit Reason for Visit: POST SEIZURE, ETOH Hospital Course Hospital Course Dave presented to the hospital with concern of alcohol withdrawal, and a seizure. He was alone, but upon awakening he felt that he had had a seizure secondary to his slow recovery, muscle aching, lethargy. He reported that he had drank some after the seizure and then decided to come in. At the hospital he was hypertensive and tachycardic initially, concerning for significant withdrawal. He was given Ativan in the emergency department and transition to the ICU. Electrolyte abnormalities consisted of hypomagnesemia and hypokalemia which was profound. These were supplemented heavily. Throughout the night hypertension, tachycardia gradually improved. He was able to be moved to the second floor on September 28 for continued monitoring. On September 29 all withdrawal symptoms had abated. He was no longer shaky, able to ambulate around the room. It was thought he could be discharged home with instructions not to drink. He refused any inpatient or outpatient rehabilitation services. He wished to pursue Alcoholics Anonymous which he already had contacts for. He is return for any concerns. Magnesium was low day of discharge so this will be supplemented prior to discharge. Patient did have significant leukopenia and thrombocytopenia in the hospital consistent with bone marrow suppression secondary to alcohol. Liver function tests were elevated, with bilirubin decreasing consistent with alcohol effects on the liver. He was instructed to have all of these rechecked as an outpatient. The last 24 hours in the hospital he required no Ativan. Physical Exam Narrative: EXAM NARRATIVE: General exam no distress. No tremor. No diaphoresis, no obvious signs of withdrawal. Neck is supple Cardiovascular regular rate and rhythm Lungs clear Abdomen is soft Extremities no cyanosis clubbing or edema Discharge Data Data Completed and Pending: Completed Studies During Hospitalization Category Date Time Status XR chest 1V rafaela ble [id number] Stat Exams 09/27/21 09:45 Completed Labs from last 24 hours 09/29/21 09/29/21 05:04 05:04 WBC 2.9 L RBC 3.87 L Hgb 13.1 Hct 40.5 L MCV 104.7 H D MCH 33.9 MCHC 32.3 D RDW 15.9 H Plt Count 53 L MPV 12.4 H Neut % (Auto) 56.8 Lymph % (Auto) 34.0 [place] % (Auto) 7.5 Eos % (Auto) 0.7 Baso % (Auto) 0.7 Neut # (Auto) 1.67 L Lymph # (Auto) 1.0 [place] # (Auto) 0.2 Eos # (Auto) 0.0 Baso # (Auto) 0.0 Nucleated RBC % (a uto) 0 Nucleated RBCs # 0.0 Sodium 135 L Potassium 4.2 Chloride 102 Carbon Dioxide 19 L Anion Gap 18.2 BUN 4 L Creatinine 0.5 L GFR Calculation 191.5 H Glucose 84 Calculated Osmolal ity 276 L Calcium 7.9 L Magnesium 1.4 L Total Bilirubin 1.8 H AST 188 H ALT 58 H Alkaline Phosphata se 186 H Total Protein 6.1 L Albumin 3.5 Globulin 2.6 Vitals: Last Vital Signs Temp 97.7 F 09/29/21 07:43 Pulse 108 H 09/29/21 07:43 Resp 17 09/29/21 07:43 BP 174/110 09/29/21 07:43 Pulse Ox 97 09/29/21 07:43 Discharge Plan Discharge Patient Disposition: Home Condition: Stable Prescriptions: Continued Vitamin B-12 1 tab PO DAILY RF: 0 hydroxyzine pamoate 25 mg Capsule 25 - 100 mg PO BID PRN (Reason: Anxiety) RF: 0 multivitamin Tablet 1 tab PO DAILY RF: 0 potassium chloride 10 mEq capsule, extended release 10 meq PO DAILY RF: 0 folic acid 1 mg tablet 1 mg PO DAILY RF: 0 magnesium oxide 250 mg magnesium tablet 250 mg PO DAILY RF: 0 Vitamin B-1 (mononitrate) 100 mg tablet 100 mg PO DAILY RF: 0 Discharge Orders: Discharge Order (Routine); Ordered 09/29/21 Ordered By: Moi Barnett Referrals: [facility] [Other] (You will have a hospital follow up with MAYTE Ricardo at [facility] on October 05, 2021 at 8:00 am. If you have any questions or need to reschedule please call them at [phone]. CBC, CMP, magnesium on follow-up) Discharge Diet: Regular Discharge Activity: Increase activity as tolerated Patient Instructions: Alcohol Dependence (DC), Opioid Safety Activity Restrictions/Additional Instructions: Follow-up on October 05 as scheduled. No alcohol. Start AA. Return for any worsening or concerns. Do not discharge until after magnesium is infused He should have a CBC and CMP, magnesium on follow-up to recheck your platelet count, as well as liver function tests Discharge Attestations Time Spent in Discharge Care*: greater than 30 min Quality Metrics Clinical Quality Measures During this hospital stay, did patient experience: None Coding Level of Care Code Acute Chg FW DC note Diagnoses Alcohol withdrawal F10.239 Alcohol withdrawal seizure F10.239; R56.9 Transaminitis R74.01 Acute hypokalemia E87.6 Hypomagnesemia E83.42 Smoking addiction F17.200
[2021-09-29 09:58] VITALS: BP 174/110; PULSE 108; RESP 17; TEMP 36.5; O2SAT 97
== END 2021-09-29 09:59 | disposition home or self-care (01) | DRG 897 ==
LOC: ER 10:52 → ICU 14:38 → MEDSURG 09-28 12:57
PROVIDERS: Admitting Provider Internal Medicine; Emergency Provider Family Medicine; Visit Provider Internal Medicine
DX: F10.239 Alcohol dependence with withdrawal, unspecified (principal); G40.509 Epileptic seizures related to external causes, not intractable, without status epilepticus; F10.24 Alcohol dependence with alcohol-induced mood disorder; F10.280 Alcohol dependence with alcohol-induced anxiety disorder; I10 Essential (primary) hypertension; F17.210 Nicotine dependence, cigarettes, uncomplicated; E87.6 Hypokalemia; E83.42 Hypomagnesemia
CPT/HCPCS: 36415; 71045; 80048; 80053; 80307; 81001; 82140; 82550; 83605; 83690; 83735; 85025; 96365; 96366; 96372; 96375; 99291; J0360; J1650; J2060; J2405; J3411; J3475; J3480; J3490; J7030

== ENCOUNTER 2021-12-13 23:44 | Inpatient (IN) | payer BC, SELFPAY ==
[2021-12-13 23:51] VITALS: BP 165/111; PULSE 154; RESP 18; TEMP 36.1; O2SAT 96; BMI 22.9
[2021-12-13] MEDS: LORazepam 2 mg/mL INJ 1 mL IVP (23:58)
[2021-12-14] VITALS (146 sets, daily range): BP systolic 98–196; BP diastolic 65–162; PULSE 84–164; RESP 9–39; TEMP 36.9–37.1; O2SAT 88–99
--- NOTE | 2021-12-14 | ECG_ITS ---
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 Measurements Intervals [place] Rate: 134 P: 40 MO: 155 QRS: 37 QRSD: 88 T: 39 QT: 341 QTc: 510 Interpretive Statements SINUS TACHYCARDIA NONSPECIFIC T-WAVE ABNORMALITY ABNORMAL RHYTHM ECG INTERPRETATION BASED ON A DEFAULT AGE OF 40 YEARS Compared to ECG 09/15/2021 16:10:59 T-wave abnormality now present Electronically Signed On 12-14-2021 23:18:35 ACCOUNTING ASSISTANT by Karri Arango M.D. [id number]
--- NOTE | 2021-12-14 | XRR_ITS ---
PROCEDURE INFORMATION: Exam: XR Chest Exam date and time: 12/14/2021 12:00 AM Age: 31 years old Clinical indication: Abnormal findings; Abnormal ekg; Patient HX: Tachycardia; Additional info: Seizure, tachycardia TECHNIQUE: Imaging protocol: XR of the chest. Views: 1 view. COMPARISON: CR XR chest 1V portable [id number] 09/27/2021 9:54 AM FINDINGS: Lungs: Right hilar to lower lobe atelectasis versus minimal infiltrate. Pleural spaces: Unremarkable. No pleural effusion. No pneumothorax. Heart/Mediastinum: Unremarkable. No cardiomegaly. Bones/joints: Unremarkable. XR/XR chest 1V portable [id number] IMPRESSION: Right hilar to lower lobe atelectasis versus minimal infiltrate.
--- NOTE | 2021-12-14 00:02 | W.ED.ALCOHOL ---
HPI - Alcohol General: Chief Complaint: Seizure Stated Complaint: seizures Time Seen by Provider: 12/13/21 23:49 Source: patient and EMS Mode of arrival: EMS Limitations: altered mental status History of Present Illness: Patient is a 31-year-old male with a history of heavy chronic alcohol use and withdrawal seizures here for a seizure that he had at the [employer] station just prior to arrival. Reports he was seated when he had the seizure and denies striking his head. Patient tells me his last drink was yesterday. On average patient consumes approximately 1/5 of hard liquor daily. Patient has been seen here at our facility for severe alcoholic withdrawals requiring hospitalization. Upon arrival to the ED he is disoriented/post-ictal and slightly agitated. MD complaint: alcohol withdrawal Last drink: Hours (ago) Chronic alcohol use: Yes Recent trauma: No Treatments prior to arrival: none Review of Systems General: Reports: ROS unobtainable due to medical condition and ROS unobtainable due to mental status PFS ED PFSH: Medical History Alcohol withdrawal seizure Alcohol withdrawal seizure Anxiety Depression HTN (hypertension) Smoking addiction Family History Father Alcoholic Other CAD (coronary artery disease) Cancer Social History Smoking and tobacco status: current every day smoker Alcohol intake: current Physical Exam Const: COMMON NORMALS: alert EXAM LIMITATIONS: altered mental status GENERAL APPEARANCE: other (cooperative at times, other times confused and agitated ) ORIENTATION/CONSCIOUSNESS: Yes awake, Yes oriented to person and Yes oriented to place (can tell me he is in a hospital) HENMT: COMMON NORMALS: normocephalic and atraumatic HEAD & SCALP: normal to inspection, normocephalic and atraumatic FACE & SINUS: normal facial exam Eye: COMMON NORMALS: Equal, round and reactive pupils present and EOMs intact bilaterally CONJUNCTIVA: Yes conjunctival abnormal (conjunctival injection) PUPIL: Yes Equal, round and reactive pupils present Neck/C-Spine: COMMON NORMALS: full ROM CERVICAL SPINE: Yes cervical ROM normal, No pain with cervical ROM and No Cervical spine tenderness Resp: COMMON NORMALS: normal respiratory effort and clear to auscultation bilaterally AUSCULTATION: clear to auscultation bilaterally Cardio: COMMON NORMALS: regular rhythm RATE: tachycardic RHYTHM: regular rhythm GI: COMMON NORMALS: Normal to inspection, nondistended, normoactive bowel sounds present, Soft to palpation and non-tender PALPATION: Yes Soft to palpation Extremity: COMMON NORMALS: normal to inspection GENERAL: Yes normal exam except as noted Neuro: JOSE MANUEL COMA SCALE: document GCS findings Jose Manuel coma scale eye opening: Spontaneous Jose Manuel coma scale verbal response: Confused [place] coma scale motor response: Obey commands Jose Manuel coma scale total score: 14 COMMON NORMALS: moves all extremities, no focal motor deficits and no sensory deficits noted SENSORIUM/ORIENTATION: Yes alert, Yes oriented to person and Yes oriented to place (can tell me he is in a hospital) Course Consultations: Consultation #1: Dr. Hutchins-admits to ICU Vital Signs: Vital signs: Vital Signs Temperature 97.0 F L 12/13/21 23:51 Pulse Rate 130 H 12/14/21 01:29 Respiratory Rate 18 12/14/21 01:29 Blood Pressure 148/68 12/14/21 01:29 Pulse Oximetry 94 12/14/21 01:29 MDM - Alcohol Medical Decision Making Patient remains slightly disoriented and tachycardic. He required 4mg IV Ativan for help with his agitation and withdraw symptoms. Patient is at high risk for continued seizures and will need ICU hospitalization. He has a gap of 26 with a normal pH/normal bicarb. Lactate is 8.2. He has chronic/at baseline LFT elevations. Questionable infiltrate on CXR. Dr. Hutchins will admit to ICU. Lab Data : 12/14/21 00:15 12/14/21 00:53 Radiology Impressions Chest X-Ray 12/14/21 00:00 IMPRESSION: Right hilar to lower lobe atelectasis versus minimal infiltrate. Laboratory Results WBC 6.2 10^3/uL (4.0-10.0) 12/14/21 00:15 RBC 4.89 10^6/uL (4.1-5.3) 12/14/21 00:15 Hgb 16.0 g/dL (11.7-16.6) 12/14/21 00:15 Hct 46.2 % (42.0-52.0) 12/14/21 00:15 MCV 94.5 fl (80-94) H 12/14/21 00:15 MCH 32.7 pg (28.0-34.0) 12/14/21 00:15 MCHC 34.6 g/dL (30.0-36.0) 12/14/21 00:15 RDW 14.5 % (12.1-15.1) 12/14/21 00:15 Plt Count 96 10^3/cmm (130-400) L 12/14/21 00:15 MPV 12.5 fL (7.4-10.4) H 12/14/21 00:15 Neut % (Auto) 78.0 % 12/14/21 00:15 Lymph % (Auto) 11.4 % 12/14/21 00:15 [place] % (Auto) 9.7 % 12/14/21 00:15 Eos % (Auto) 0.2 % 12/14/21 00:15 Baso % (Auto) 0.2 % 12/14/21 00:15 Neut # (Auto) 4.85 10^3/uL (1.8-7.7) 12/14/21 00:15 Lymph # (Auto) 0.7 10^3/uL (0.8-4.8) L 12/14/21 00:15 [place]aney # (Auto) 0.6 10^3/uL (0.2-0.9) 12/14/21 00:15 Eos # (Auto) 0.0 10^3/uL (0.0-0.8) 12/14/21 00:15 Baso # (Auto) 0.0 10^3/uL (0.0-0.1) 12/14/21 00:15 Nucleated RBC % (auto) 0 % 12/14/21 00:15 Nucleated RBCs # 0.0 /100WBC 12/14/21 00:15 Specimen Type Arterial 12/14/21 00:20 Sample Site Radial, right 12/14/21 00:20 ABG pH 7.45 (7.35-7.45) 12/14/21 00:20 ABG pCO2 31.2 mmHg (35-45) L 12/14/21 00:20 ABG pO2 77.8 mmHg (80.0-100.0) L 12/14/21 00:20 ABG HCO3 21.7 mmol/L (22-26) L 12/14/21 00:20 ABG O2 Saturation 96.4 12/14/21 00:20 ABG Base Excess -1.2 mmol/L (-2.0-2.0) 12/14/21 00:20 Elfego Test Pos 12/14/21 00:20 A-a O2 Gradient 4.2 mmHg (5-10) L 12/14/21 00:20 Hematocrit 48.1 % (42-52) 12/14/21 00:20 Hgb O2 Saturation 95.9 % (95-100) 12/14/21 00:20 Carboxyhemoglobin 2.5 %THgb (0.4-20.1) 12/14/21 00:20 Methemoglobin < 0.0 % (0.4-1.5) L 12/14/21 00:20 Total Hemoglobin 15.7 g/dL (14-18) 12/14/21 00:20 Sodium 129.0 mmol/L (131-143) L 12/14/21 00:20 Potassium 2.6 mmol/L (3.5-5.0) L 12/14/21 00:20 Glucose 129.0 mg/dL (70-115) H 12/14/21 00:20 Ionized Calcium 1.1 mmol/L (1.1-1.4) 12/14/21 00:20 O2 Delivery Device Nc 12/14/21 00:20 O2 Liters/Min 2.0 % 12/14/21 00:20 Supervising Editor News Reel ID [email or web address] 12/14/21 00:20 Sodium 127 mmol/L (136-145) L 12/14/21 00:53 Potassium 3.0 mmol/L (3.5-5.1) L 12/14/21 00:53 Chloride 81 mmol/L (98-107) L 12/14/21 00:53 Carbon Dioxide 23 mmol/L (22-29) 12/14/21 00:53 Anion Gap 26.0 (5-19) H 12/14/21 00:53 BUN 10 mg/dL (6-20) 12/14/21 00:53 Creatinine 1.1 mg/dL (0.7-1.2) 12/14/21 00:53 GFR Calculation 77.1 mL/min (90-130) L 12/14/21 00:53 Glucose 116 mg/dL (65-115) H 12/14/21 00:53 Calculated Osmolality 264 mOsm/kg (285-295) L 12/14/21 00:53 Lactic Acid 8.2 mmol/L (0.5-2.2) H* 12/14/21 00:15 Calcium 9.9 mg/dL (8.5-10.5) 12/14/21 00:53 Magnesium Cancelled 12/14/21 00:15 Total Bilirubin 2.1 mg/dL (0.15-1.2) H 12/14/21 00:53 AST 172 U/L (0-40) H 12/14/21 00:53 ALT 74 U/L (0-41) H 12/14/21 00:53 Alkaline Phosphatase 269 IU/L (40-130) H 12/14/21 00:53 Ammonia 79 umol/L (16-60) H 12/14/21 00:53 Total Protein 7.6 g/dL (6.6-8.7) 12/14/21 00:53 Albumin 5.0 g/dL (3.5-5.2) 12/14/21 00:53 Globulin 2.6 g/dL (1.3-4.6) 12/14/21 00:53 Lipase 32 U/L (13-60) 12/14/21 00:53 Ethyl Alcohol Cancelled 12/14/21 00:53 Discharge Plan Discharge Patient Disposition: Admitted As Inpatient Admit Provider: Laxmi Hutchins Condition: Stable Coding Level of Care Code ED Surface Ship Usw Supervisor for Chg Fwd Exam Comprehensive
[2021-12-14] MEDS: LORazepam 2 mg/mL INJ 1 mL IVP (00:11)
[2021-12-14] MEDS: multivitamin therapeutic Tablet 1 TAB PO ×2 (00:14→09:12)
[2021-12-14] MEDS: lactated ringers 1,000 ML 999 ML IV ×2 (00:15→01:39)
[2021-12-14 00:22] LABS: Basophils % 0.2 %; Eosinophils % 0.2 %; Hematocrit 46.2 % (42.0-52.0); Lymphocytes # 0.7 10^3/uL (0.8-4.8); Lymphocytes % 11.4 %; Mean Corpuscular HGB Conc 34.6 g/dL (30.0-36.0); Mean Corpuscular Hemoglobin 32.7 pg (28.0-34.0); Mean Corpuscular Volume 94.5 fl (80-94); Mean Platelet Volume 12.5 fL (7.4-10.4); Monocytes # 0.6 10^3/uL (0.2-0.9); Monocytes % 9.7 %; Neutrophils # 4.85 10^3/uL (1.8-7.7); Nucleated Red Blood Cells % 0 %; Platelet Count 96 10^3/cmm (130-400); Red Blood Count 4.89 10^6/uL (4.1-5.3); Red Cell Distribution Width 14.5 % (12.1-15.1); White Blood Count 6.2 10^3/uL (4.0-10.0)
[2021-12-14 00:32] LABS: ABG PCO2 31.2 mmHg (35-45); ABG PH Result 7.45 (7.35-7.45); Alveolar-Arterial Oxygen Gradi 4.2 mmHg (5-10); Arterial Blood Gas Hematocrit 48.1 % (42-52); Base Excess ABG -1.2 mmol/L (-2.0-2.0); Blood Gas Allen Test Pos; Blood Gas Sample Type Arterial; Carboxyhemoglobin 2.5 %THgb (0.4-20.1); HCO3 ABG 21.7 mmol/L (22-26); HGB O2 Sat 95.9 % (95-100); Ionized Calcium Level - ABG 1.1 mmol/L (1.1-1.4); Methemoglobin < 0.0 % (0.4-1.5); Oxygen Saturation ABG 96.4; PO2 ABG 77.8 mmHg (80.0-100.0); Potassium Level - ABG 2.6 mmol/L (3.5-5.0); Total Hemoglobin 15.7 g/dL (14-18)
[2021-12-14 00:33] LABS: Blood Gas Sample Site Radial, right; Oxygen Device NC
[2021-12-14 00:49] LABS: Alcohol Level < 10 mg/dL (0-10); Lactic Sepsis W/Reflex 8.2 mmol/L (0.5-2.2)
[2021-12-14 01:16] LABS: Alanine Aminotransferase 74 U/L (0-41); Alkaline Phosphatase 269 IU/L (40-130); Aspartate Amino Transferase 172 U/L (0-40); Blood Urea Nitrogen 10 mg/dL (6-20); Calcium 9.9 mg/dL (8.5-10.5); Carbon Dioxide 23 mmol/L (22-29); Chloride 81 mmol/L (98-107); Globulin 2.6 g/dL (1.3-4.6); Glomerular Filtration Rate 77.1 mL/min (90-130); Glucose 116 mg/dL (65-115); Osmolality Calculated 264 mOsm/kg (285-295); Sodium 127 mmol/L (136-145); Total Bilirubin 2.1 mg/dL (0.15-1.2); Total Protein 7.6 g/dL (6.6-8.7)
[2021-12-14 01:17] LABS: Ammonia 79 umol/L (16-60)
[2021-12-14 01:55] LABS: Lipase 32 U/L (13-60)
[2021-12-14 02:07] LABS: Reflex Lactate Order REFLEX LACTIC ORDERD
[2021-12-14] MEDS: lidocaine 1% 5 ML in potassium chloride premix 100 ML 50 ML IV (02:25)
[2021-12-14 03:27] LABS: Amphetamines Screen Urine Negative (Negative); Barbiturates Screen Urine Negative (Negative); Benzodiazepines Screen Urine Positive (Negative); Cocaine Screen Urine Negative (Negative); Opiate Screen Urine Negative (Negative); PCP Screen Urine Negative (Negative); THC Screen Urine Negative (Negative)
[2021-12-14] MEDS: sodium chlor 0.9% + KCl 20 mEq 20 MEQ/1,000 ML BAG 100 MEQ IV ×2 (04:28→20:36)
[2021-12-14 06:12] LABS: Lactic Acid level (Lactate) 0.9 mmol/L (0.5-2.2)
--- NOTE | 2021-12-14 06:37 | P.HP_ITS ---
Providers/Chief Complaint Admitting Physician: Laxmi Hutchins MD Chief Complaint: seizures History of Present Illness Setting Mega Gaston is a 31 year old male with history of alcohol dependence and recurrent seizures withdrawal presented today after having had reportedly witnessed seizures at a local store where he was buying some energy drinks. Reportedly when he was evaluated by EMS he was disoriented and confused. By the time he reached the hospital his mental status is improving. He is awake alert though tangential with his conversation. His last drink was 2 days ago. He states that he often binge drinks for several days at a time and then quits for a few days afterwards. It is during these. Of abstinence that his seizures are precipitated. Alcohol level today is undetectable. At the time of my assessment he is noted to be tachycardic heart rate 120s, T- max 98.6, blood pressure is stable. He does have visible tremors. CIWA score of at least 10. He will be admitted to the ICU for close monitoring. Review of Systems General: Reports: 10 or more systems reviewed and unremarkable except in HPI and below Const: Denies: fever(s), chills or body aches Eyes: Denies: change in vision, blurry vision or photophobia ENMT: Reports: hoarseness; Denies: throat pain, enlarged tonsils, odynophagia or nasal congestion Card: Denies: chest pain, palpitations, irregular heart rhythm, edema, swelling of feet/ankles, lightheadedness, pre-syncope, dyspnea on exertion or orthopnea Resp: Denies: dyspnea, productive cough, non-productive cough, wheezing, stridor, pain on inspiration, change in phlegm color, hemoptysis or chest congestion GI: Denies: abdominal pain, nausea, vomiting, hematemesis, coffee ground emesis, dysphagia, heartburn, diarrhea, constipation, GI cramping, change in stool character, hematochezia or melena : Denies: flank pain, dysuria, urinary frequency, urinary urgency, urinary hesitancy or hematuria Musc: Denies: neck pain, back pain, extremity pain, joint swelling, joint warmth or deformity Neuro: Denies: headache(s), numbness in extremities, weakness in extremities, sensory changes, difficulty walking, frequent falls, dizziness, vertigo, behavioral changes, Slurred speech present or seizure-like activity Psych: Denies: anxiety, depression, suicidal ideation or homicidal ideation Endo: Denies: polyuria, polydipsia, tired all the time, cold intolerance or hot flashes Robert/Lymph: Denies: easy bruising or easy bleeding Medications/Allergies Home Medications Medication Instructions Recorded Confirmed Last Taken Type Vitamin B-12 1 tab PO DAILY 09/15/21 09/27/21 Unknown History folic acid 1 mg tablet 1 mg PO DAILY 09/27/21 09/27/21 Unknown History hydroxyzine pamoate 25 mg capsule 25 - 100 mg PO BID PRN 09/27/21 09/27/21 Unknown History magnesium oxide 250 mg PO DAILY 09/27/21 09/27/21 Unknown History multivitamin 1 tab PO DAILY 09/27/21 09/27/21 Unknown History potassium chloride 10 mEq 10 meq PO DAILY 09/27/21 09/27/21 Unknown History capsule,extended release thiamine mononitrate (vit B1) 100 100 mg PO DAILY 09/27/21 09/27/21 Unknown Hist ory mg tablet (Vitamin B-1 (mononitrate)) Allergies Allergy/AdvReac Type Severity Reaction Status Date / Time No Known Allergies Allergy Verified 09/27/21 10:27 PFSH Acute PFSH: Medical History Alcohol withdrawal seizure Alcohol withdrawal seizure Anxiety Depression HTN (hypertension) Smoking addiction Family History Father Alcoholic Other CAD (coronary artery disease) Cancer Social History Smoking and tobacco status: current every day smoker Alcohol intake: current Vitals/I&O/Wt Last Vital Signs Temp 98.6 F 12/14/21 02:45 Pulse 120 H 12/14/21 04:15 Resp 25 H 12/14/21 04:15 BP 138/120 12/14/21 04:15 Pulse Ox 95 12/14/21 04:32 12/13/21 12/13/21 12/14/21 14:59 22:59 06:59 Intake Total 1999 Output Total 600 / 600 Balance 1400 / 1400 Weight last 48 hrs Weight 72.575 kg Physical Exam Narrative: GEN: Awake, alert and oriented, veers off of conversation at hand. Tremors present. CVS: S1S2 N RS: CTA B/L all areas Abd: Soft, nt/nd , bs+ TELECOMMUNICATIONS LINE MECHANIC: no focal neuro deficits, moving all extremities while laying in bed Data : 12/14/21 00:15 12/14/21 00:53 Micro: Microbiology 12/14/21 05:40 Blood Culture - Preliminary Blood SPECIMEN COLLECTED A&P Assessment and plan (1) Alcohol withdrawal: Status: Acute (2) Seizure: Status: Acute (3) Chronic alcohol dependence, continuous: Status: Acute (4) Hypokalemia: Status: Acute (5) Lactic acidosis: Status: Acute Plan Admit patient to ICU in view of seizures, likely related to alcohol withdrawal. Reports last drink was 2 days ago. Alcohol level currently is undetectable. U tox positive for benzodiazepines. Patient CIWA score is currently at least 10. ICU CIWA protocol, start additionally Precedex infusion. Patient is intermittently agitated, trying to pick at his IV line his clothes his hair etc. Aspiration and seizure precautions. Ammonia additionally noted to be elevated at 79. May have an additional com ponent of hepatic encephalopathy. Start lactulose every 6 hours scheduled, titrate to 3-4 bowel movements per day. Transaminitis, at baseline dating back to at least 03/2021 Attestations Medical Necessity Statement*: >2midnight admission anticipated for management of alcohol withdrawal, delirium tremens, hepatic encephalopathy Coding Level of Care Code Acute Product Analyst for Foster Pina Diagnoses Alcohol withdrawal F10.239 Seizure R56.9 Chronic alcohol dependence, continuous F10.20 Hypokalemia E87.6 Lactic acidosis E87.2
[2021-12-14] MEDS: lactulose oral liq 20 gm/30 mL UDC PO ×2 (07:21→13:09)
[2021-12-14 08:14] LABS: Potassium 2.7 mmol/L (3.5-5.1)
[2021-12-14] MEDS: pantoprazole DR 40 mg Tablet PO (09:12)
[2021-12-14] MEDS: folic acid 1 mg Tablet PO (09:12)
[2021-12-14] MEDS: thiamine 100 mg Tablet PO (09:12)
[2021-12-14] MEDS: potassium chloride ER 20 mEq Tablet 40 MEQ PO (09:12)
[2021-12-14] MEDS: magnesium oxide 400 mg tablet PO ×2 (09:12→18:05)
[2021-12-14] MEDS: lidocaine 1% 5 ML in potassium chloride premix 100 ML 25 ML IV (09:14)
--- NOTE | 2021-12-14 10:08 | PC.CHAP ---
Pastoral Care Encounter/Spiritual Assessment Type of Contact [] Declined sql dba visit [] Patient/Family/Request visit [] Outpatient visit [] Follow-up visit [] Physician referral [] Code/Alert [x] Routine visit [] Staff referral [] Actively dying [x] Patient sleeping [] Family support [] [] Out of room [] Palliative care [] [] Receiving care in room [] Pre-surgical visit [] Trauma [] Long length of stay [x] ICU visit [] Other: Relational/Emotional Strength [] Patient feels connected with others/family/visitors/staff [] Distress [] Loneliness/isolation [] Abandonment Spirituality of Patient [] Person of Nilsa [] Attends Uatsdin of their Nilsa [] Believes in Prayer [] Reads Bible or Sikhism materials [] There are Spiritual issues to be addressed Assembly Inspector Helper Interventions [x] Prayer [] Active listening [] Non-anxious presence [] Spiritual/emotional support [] Crisis/trauma care [] Spiritual counseling [] Bereavement support [] Provided bereavement packet [] Provided Bible/devotional materials [] Provided toy/stuffed animal, coloring book to patient or family member [] Provided Communion [] Anointing/[place] [] Salvation [x] Completed spiritual assessment [] Other: Impact on Illness or Injury [] Angry [] Fearful [] Anxious [] Often cries [] Exhaustion [] Unable to work [] Unable to attend congregation [] Unable to walk/stand [] Unable to read [] Unable to drive [] Unable to eat/drink [] Unable to sleep [] Unable to be with family [] Patient intubated [] Other: Summary Time spent with patient
--- NOTE | 2021-12-14 18:44 | PC.NURSE ---
Shift SUmmary: Uneventful shift. Patient rested in bed throughout most of the day. Patient has been able to get up to the bathroom by himself. Only needing help disconnected Monitoring devices and IV. Throughout the day CIWA score was 0, no signs of withdrawal. No prn medications given. Patient has had 5 bowel movements today after receiving lactulose. Lactulose as discontinued. Total of 825 mL of urine output.
[2021-12-15] VITALS (39 sets, daily range): BP systolic 130–172; BP diastolic 42–124; PULSE 85–103; RESP 16–29; TEMP 36.8–37; O2SAT 95–98
[2021-12-15 05:08] LABS: Basophils % 0.2 %; Eosinophils % 0.5 %; Hematocrit 41.4 % (42.0-52.0); Hemoglobin 14.5 g/dL (11.7-16.6); Lymphocytes # 1.3 10^3/uL (0.8-4.8); Lymphocytes % 31.7 %; Mean Corpuscular Hemoglobin 33.3 pg (28.0-34.0); Mean Platelet Volume 11.1 fL (7.4-10.4); Monocytes # 0.4 10^3/uL (0.2-0.9); Neutrophils # 2.35 10^3/uL (1.8-7.7); Neutrophils % 57.4 %; Nucleated Red Blood Cells % 0 %; Platelet Count 79 10^3/cmm (130-400); Red Blood Count 4.36 10^6/uL (4.1-5.3); Red Cell Distribution Width 14.9 % (12.1-15.1); White Blood Count 4.1 10^3/uL (4.0-10.0)
[2021-12-15 05:26] LABS: Alanine Aminotransferase 74 U/L (0-41); Albumin Level 4.3 g/dL (3.5-5.2); Alkaline Phosphatase 220 IU/L (40-130); Anion Gap 18.1 (5-19); Aspartate Amino Transferase 155 U/L (0-40); Blood Urea Nitrogen 7 mg/dL (6-20); Calcium 9.1 mg/dL (8.5-10.5); Carbon Dioxide 23 mmol/L (22-29); Chloride 99 mmol/L (98-107); Globulin 2.3 g/dL (1.3-4.6); Glomerular Filtration Rate 129.9 mL/min (90-130); Glucose 87 mg/dL (65-115); Osmolality Calculated 281 mOsm/kg (285-295); Potassium 3.1 mmol/L (3.5-5.1); Sodium 137 mmol/L (136-145); Total Bilirubin 1.3 mg/dL (0.15-1.2); Total Protein 6.6 g/dL (6.6-8.7)
[2021-12-15] MEDS: potassium chloride ER 20 mEq Tablet 40 MEQ PO ×2 (06:28→08:17)
[2021-12-15] MEDS: sodium chlor 0.9% + KCl 20 mEq 20 MEQ/1,000 ML BAG 100 MEQ IV (06:29)
--- NOTE | 2021-12-15 07:28 | PC.NURSE ---
Admissions notified unit patient was walking around facility, patient escorted back to room by staff. patient AO stating I was just felling cramped in the room. patient pacing in room since brought back. Dr. Padilla notified and informed this nurse patient will be D/C today
--- NOTE | 2021-12-15 07:44 | PC.NURSE ---
Dr. Padilla at bedside, advised patient to stay long enough for us to monitor BP, gave v.o. for po Metoprolol and po Ativan
--- NOTE | 2021-12-15 07:53 | PC.NURSE ---
Patient refusing telemetry at this time
[2021-12-15] MEDS: metoprolol tartrate 25 mg Tablet PO (08:16)
[2021-12-15] MEDS: folic acid 1 mg Tablet PO (08:17)
[2021-12-15] MEDS: thiamine 100 mg Tablet PO (08:17)
[2021-12-15] MEDS: magnesium oxide 400 mg tablet PO (08:17)
[2021-12-15] MEDS: multivitamin therapeutic Tablet 1 TAB PO (08:17)
[2021-12-15] MEDS: pantoprazole DR 40 mg Tablet PO (08:17)
[2021-12-15] MEDS: LORazepam 0.5 mg Tablet 0.25 MG PO (08:18)
--- NOTE | 2021-12-15 09:52 | PC.NURSE ---
patient in plain clothes, refuses to wear gown
--- NOTE | 2021-12-15 10:14 | PM.DCS ---
Discharge Providers Date of Admission: 12/14/21 04:05 Date of Discharge: December 15, 2021 Attending Provider at Admission: Laxmi Hutchins MD Attending Provider at Discharge: Katherine Padilla MD Diagnoses at Discharge Discharge Diagnosis (1) Alcohol withdrawal: Status: Acute (2) Seizure: Status: Acute (3) Chronic alcohol dependence, continuous: Status: Acute (4) Hypokalemia: Status: Acute (5) Lactic acidosis: Status: Acute Reason for Visit Reason for Visit: seizures Hospital Course Hospital Course Admitting note by Dr. Cuong Montenegro Mega Gaston is a 31 year old male with history of alcohol dependence and recurrent seizures withdrawal presented today after having had reportedly witnessed seizures at a local store where he was buying some energy drinks.? Reportedly when he was evaluated by EMS he was disoriented and confused.? By the time he reached the hospital his mental status is improving.? He is awake alert though tangential with his conversation.? His last drink was 2 days ago.? He states that he often binge drinks for several days at a time and then quits for a few days afterwards Hospital course Patient was admitted to ICU for management and evaluation of seizure episode secondary to alcohol withdrawal. During his ICU stay he did not require any benzodiazepines or phenobarbital. He remained very calm, his blood pressure remained high which improved with use of benzodiazepine and metoprolol on 12/15. He is very anxious and wants to return home. He wants to go for AA program, [facility], [place] referral was also given at the time of discharge I have represcribed thiamine, folic acid, multivitamins. For his autonomic dysfunction related to alcohol I have given him low-dose metoprolol for hypertensive urgency. I am not sure whether he is going to quit alcohol, reluctant to add benzodiazepine tapering regimen at the time of discharge. Physical Exam Narrative: Patient is euvolemic No focal neuro deficit He appears anxious however no severe withdrawal symptoms No tremors or headache No hallucination Blood pressure 132/92 mmHg Heart rate 88 Saturating well on room air Abdomen soft Awake and alert Discharge Data Studies Completed and Pending Completed Studies During Hospitalization Category Date Time Status XR chest 1V portable [id number] Urgent Exams 12/14/21 00:00 Completed Pending at discharge Category Date Time Status Blood Culture Routine Lab 12/14/21 05:40 Results Radiology Impressions Chest X-Ray 12/14/21 00:00 IMPRESSION: Right hilar to lower lobe atelectasis versus minimal infiltrate. Laboratory Results WBC 4.1 10^3/uL (4.0-10.0) 12/15/21 04:50 RBC 4.36 10^6/uL (4.1-5.3) 12/15/21 04:50 Hgb 14.5 g/dL (11.7-16.6) 12/15/21 04:50 Hct 41.4 % (42.0-52.0) L 12/15/21 04:50 MCV 95.0 fl (80-94) H 12/15/21 04:50 MCH 33.3 pg (28.0-34.0) 12/15/21 04:50 MCHC 35.0 g/dL (30.0-36.0) 12/15/21 04:50 RDW 14.9 % (12.1-15.1) 12/15/21 04:50 Plt Count 79 10^3/cmm (130-400) L 12/15/21 04:50 MPV 11.1 fL (7.4-10.4) H 12/15/21 04:50 Neut % (Auto) 57.4 % 12/15/21 04:50 Lymph % (Auto) 31.7 % 12/15/21 04:50 [place] % (Auto) 10.0 % 12/15/21 04:50 Eos % (Auto) 0.5 % 12/15/21 04:50 Baso % (Auto) 0.2 % 12/15/21 04:50 Neut # (Auto) 2.35 10^3/uL (1.8-7.7) 12/15/21 04:50 Lymph # (Auto) 1.3 10^3/uL (0.8-4.8) 12/15/21 04:50 [place] # (Auto) 0.4 10^3/uL (0.2-0.9) 12/15/21 04:50 Eos # (Auto) 0.0 10^3/uL (0.0-0.8) 12/15/21 04:50 Baso # (Auto) 0.0 10^3/uL (0.0-0.1) 12/15/21 04:50 Nucleated RBC % (auto) 0 % 12/15/21 04:50 Nucleated RBCs # 0.0 /100WBC 12/15/21 04:50 Specimen Type Arterial 12/14/21 00:20 Sample Site Radial, right 12/14/21 00:20 ABG pH 7.45 (7.35-7.45) 12/14/21 00:20 ABG pCO2 31.2 mmHg (35-45) L 12/14/21 00:20 ABG pO2 77.8 mmHg (80.0-100.0) L 12/14/21 00:20 ABG HCO3 21.7 mmol/L (22-26) L 12/14/21 00:20 ABG O2 Saturation 96.4 12/14/21 00:20 ABG Base Excess -1.2 mmol/L (-2.0-2.0) 12/14/21 00:20 Elfego Test Pos 12/14/21 00:20 A-a O2 Gradient 4.2 mmHg (5-10) L 12/14/21 00:20 Hematocrit 48.1 % (42-52) 12/14/21 00:20 Hgb O2 Saturation 95.9 % (95-100) 12/14/21 00:20 Carboxyhemoglobin 2.5 %THgb (0.4-20.1) 12/14/21 00:20 Methemoglobin < 0.0 % (0.4-1.5) L 12/14/21 00:20 Total Hemoglobin 15.7 g/dL (14-18) 12/14/21 00:20 Sodium 129.0 mmol/L (131-143) L 12/14/21 00:20 Potassium 2.6 mmol/L (3.5-5.0) L 12/14/21 00:20 Glucose 129.0 mg/dL (70-115) H 12/14/21 00:20 Ionized Calcium 1.1 mmol/L (1.1-1.4) 12/14/21 00:20 O2 Delivery Device Nc 12/14/21 00:20 O2 Liters/Min 2.0 % 12/14/21 00:20 Imaging Analyst ID [id number] 12/14/21 00:20 Sodium 137 mmol/L (136-145) 12/15/21 04:50 Potassium 3.1 mmol/L (3.5-5.1) L 12/15/21 04:50 Chloride 99 mmol/L (98-107) 12/15/21 04:50 Carbon Dioxide 23 mmol/L (22-29) 12/15/21 04:50 Anion Gap 18.1 (5-19) 12/15/21 04:50 BUN 7 mg/dL (6-20) 12/15/21 04:50 Creatinine 0.7 mg/dL (0.7-1.2) 12/15/21 04:50 GFR Calculation 129.9 mL/min (90-130) 12/15/21 04:50 Glucose 87 mg/dL (65-115) 12/15/21 04:50 Calculated Osmolality 281 mOsm/kg (285-295) L 12/15/21 04:50 Lactic Acid 8.2 mmol/L (0.5-2.2) H* 12/14/21 00:15 Lactic Acid (Sepsis) 0.9 mmol/L (0.5-2.2) 12/14/21 05:40 Calcium 9.1 mg/dL (8.5-10.5) 12/15/21 04:50 Magnesium 2.0 mg/dL (1.7-2.3) 12/14/21 00:53 Total Bilirubin 1.3 mg/dL (0.15-1.2) H 12/15/21 04:50 AST 155 U/L (0-40) H 12/15/21 04:50 ALT 74 U/L (0-41) H 12/15/21 04:50 Alkaline Phosphatase 220 IU/L (40-130) H 12/15/21 04:50 Ammonia 79 umol/L (16-60) H 12/14/21 00:53 Total Protein 6.6 g/dL (6.6-8.7) 12/15/21 04:50 Albumin 4.3 g/dL (3.5-5.2) 12/15/21 04:50 Globulin 2.3 g/dL (1.3-4.6) 12/15/21 04:50 Lipase 32 U/L (13-60) 12/14/21 00:53 Urine Opiates Screen Negative ng/mL (Negative) 12/14/21 03:10 Ur Barbiturates Screen Negative ng/mL (Negative) 12/14/21 03:10 Ur Phencyclidine Scrn Negative ng/mL (Negative) 12/14/21 03:10 Ur Amphetamines Screen Negative ng/mL (Negative) 12/14/21 03:10 U Benzodiazepines Scrn Positive ng/mL (Negative) H 12/14/21 03:10 Urine Cocaine Screen Negative ng/mL (Negative) 12/14/21 03:10 U Marijuana (THC) Screen Negative ng/mL (Negative) 12/14/21 03:10 Ethyl Alcohol Cancelled 12/14/21 00:53 Vitals Last Vital Signs Temp 98.6 F 12/15/21 04:00 Pulse 88 12/15/21 07:05 Resp 21 H 12/15/21 07:05 BP 132/92 12/15/21 10:03 Pulse Ox 97 12/15/21 09:50 Discharge Plan Discharge Patient Disposition: Home Condition: Stable Prescriptions: New metoprolol tartrate 25 mg tablet 12.5 mg PO DAILY Qty: 30 2RF Continued Vitamin B-12 1 tab PO DAILY 0RF multivitamin Tablet 1 tab PO DAILY 0RF potassium chloride 10 mEq capsule, extended release 10 meq PO DAILY Qty: 20 0RF folic acid 1 mg tablet 1 mg PO DAILY Qty: 60 0RF magnesium oxide 250 mg magnesium tablet 250 mg PO DAILY Qty: 30 0RF Vitamin B-1 (mononitrate) 100 mg tablet 100 mg PO DAILY Qty: 60 0RF Discharge Orders: Discharge Order (Routine); Ordered 12/15/21 Ordered By: Katherine Padilla Referrals: [facility], [Staff Physician] - 1-3 days Discharge Diet: Regular Discharge Activity: Increase activity as tolerated Patient Instructions: Opioid Safety Discharge Attestations Time Spent in Discharge Care*: less than 30 min Quality Metrics Clinical Quality Measures [ No reported AMI, CVA or VTE this stay] Coding Level of Care Code Acute Chg FW DC note Diagnoses Alcohol withdrawal F10.239 Seizure R56.9 Chronic alcohol dependence, continuous F10.20 Hypokalemia E87.6 Lactic acidosis E87.2
--- NOTE | 2021-12-15 10:32 | PC.NURSE ---
This patient notified Dr. Padilla of BP 139/92, Dr. Padilla to put in D/C orders. patient refusing vs being taken at this time
--- NOTE | 2021-12-15 10:35 | PC.NURSE ---
Patient called brother who is to transport patient home
--- NOTE | 2021-12-15 11:42 | PC.CHAP ---
Pastoral Care Encounter/Spiritual Assessment Type of Contact [] Declined hand spring repairer visit [] Patient/Family/Request visit [] Outpatient visit [] Follow-up visit [] Physician referral [] Code/Alert [x] Routine visit [] Staff referral [] Actively dying [] Patient sleeping [] Family support [] [] Out of room [] Palliative care [] [] Receiving care in room [] Pre-surgical visit [] Trauma [] Long length of stay [x] ICU visit [] Other: Relational/Emotional Strength [] Patient feels connected with others/family/visitors/staff [] Distress [] Loneliness/isolation [] Abandonment Spirituality of Patient [] Person of Nilsa [] Attends Orthodoxy of their Nilsa [] Believes in Prayer [] Reads Bible or Moravian materials [] There are Spiritual issues to be addressed Corporate Fitness Program Coordinator Interventions [x] Prayer [x] Active listening [x] Non-anxious presence [x] Spiritual/emotional support [] Crisis/trauma care [] Spiritual counseling [] Bereavement support [] Provided bereavement packet [] Provided Bible/devotional materials [] Provided toy/stuffed animal, coloring book to patient or family member [] Provided Communion [] Anointing/[place] [] Salvation [x] Completed spiritual assessment [] Other: Impact on Illness or Injury [] Angry [] Fearful [] Anxious [] Often cries [] Exhaustion [] Unable to work [] Unable to attend yarsani [] Unable to walk/stand [] Unable to read [] Unable to drive [] Unable to eat/drink [] Unable to sleep [] Unable to be with family [] Patient intubated [] Other: Summary patient preparing to leave hospital.... patient is a young alcoholic... can go weeks with no drinking with a week or more straight.. causes vitamin deficiencies.. Time spent with patient 20 min
--- NOTE | 2021-12-15 11:58 | PC.NURSE ---
Patient walking around unit at this time, puled IVs out, waiting on transport
--- NOTE | 2021-12-15 12:17 | PC.NURSE ---
Patient CRISTAL at this time, picked up by family, patient educated on D/C paperwork including to picker/puller meds caled to pharmacy and follow up with PCP in 2 weeks
== END 2021-12-15 12:18 | disposition home or self-care (01) | DRG 897 ==
LOC: ER 12-14 01:46 → ICU 12-14 01:49
PROVIDERS: Admitting Provider Student in an Organized Health Care Education/Training Program; Emergency Provider Physician Assistant; Visit Provider Internal Medicine
DX: F10.231 Alcohol dependence with withdrawal delirium (principal); E87.2 Acidosis; K70.40 Alcoholic hepatic failure without coma; Y90.0 Blood alcohol level of less than 20 mg/100 ml; F41.8 Other specified anxiety disorders; I10 Essential (primary) hypertension; F17.210 Nicotine dependence, cigarettes, uncomplicated; E87.6 Hypokalemia; I16.0 Hypertensive urgency
CPT/HCPCS: 36415; 36600; 71045; 80051; 80053; 80306; 80307; 82140; 82330; 82805; 83605; 83690; 83735; 84132; 85025; 87040; 93005; 94664; 96365; 96375; 96376; 99291; 99292; J2060; J3411; J3480

== ENCOUNTER 2022-03-01 17:40 | Emergency (ER) | payer BC, SELFPAY ==
[2022-03-01 17:46] VITALS: BP 166/122; PULSE 123; RESP 17; TEMP 37.4; O2SAT 95; BMI 27.2
[2022-03-01 18:22] LABS: Basophils % 0.4 %; Eosinophils % 0.4 %; Hematocrit 48.8 % (42.0-52.0); Lymphocytes # 2.4 10^3/uL (0.8-4.8); Lymphocytes % 42.5 %; Mean Corpuscular HGB Conc 34.8 g/dL (30.0-36.0); Mean Corpuscular Hemoglobin 32.9 pg (28.0-34.0); Mean Corpuscular Volume 94.6 fl (80-94); Mean Platelet Volume 10.8 fL (7.4-10.4); Monocytes # 0.6 10^3/uL (0.2-0.9); Monocytes % 10.4 %; Neutrophils # 2.59 10^3/uL (1.8-7.7); Neutrophils % 46.3 %; Nucleated Red Blood Cells % 0 %; Platelet Count 210 10^3/cmm (130-400); Red Blood Count 5.16 10^6/uL (4.1-5.3); Red Cell Distribution Width 12.5 % (12.1-15.1); White Blood Count 5.6 10^3/uL (4.0-10.0)
[2022-03-01 18:39] LABS: Alanine Aminotransferase 52 U/L (0-41); Albumin Level 4.7 g/dL (3.5-5.2); Alkaline Phosphatase 192 IU/L (40-130); Anion Gap 23.1 (5-19); Aspartate Amino Transferase 67 U/L (0-40); Blood Urea Nitrogen 3 mg/dL (6-20); Calcium 8.9 mg/dL (8.5-10.5); Carbon Dioxide 21 mmol/L (22-29); Chloride 100 mmol/L (98-107); Globulin 2.5 g/dL (1.3-4.6); Glomerular Filtration Rate 129.1 mL/min (90-130); Glucose 175 mg/dL (65-115); Osmolality Calculated 293 mOsm/kg (285-295); Potassium 3.1 mmol/L (3.5-5.1); Sodium 141 mmol/L (136-145); Total Bilirubin 0.7 mg/dL (0.15-1.2); Total Protein 7.2 g/dL (6.6-8.7)
[2022-03-01 18:51] LABS: Alcohol Level 429 mg/dL (0-10)
--- NOTE | 2022-03-01 18:52 | ED_ITS ---
HPI - Alcohol General: Chief Complaint: Alcohol Stated Complaint: SEIZURE/ ETOH Time Seen by Provider: 03/01/22 18:14 Source: EMS Mode of arrival: EMS Limitations: no limitations History of Present Illness: 32-year-old male has a long history of alcoholism states that he drank 1/5 of fireball and was scared that he may have a seizure and he is unsure he may have had a seizure but he does not know he is quite intoxicated here he is able to ambulate though answer all my questions appropriately denies any pain anywhere did not fall has no head injuries. Associated symptoms: Reports nausea and seizure-like activity; Deny depression Review of Systems Const: Denies: fever(s), chills, body aches or change in appetite Eyes: Denies: blurry vision or eye discomfort ENMT: Denies: throat pain or dental pain Card: Denies: chest pain Resp: Denies: dyspnea GI: Reports: nausea : Denies: dysuria Musc: Denies: neck pain or back pain Skin/Breast: Denies: rash Neuro: Reports: seizure-like activity; Denies: headache(s) Psych: Denies: depression Robert/Lymph: Denies: easy bruising All/Imm: Denies: urticaria PFSH ED PFSH: Medical History Alcohol withdrawal seizure Alcohol withdrawal seizure Anxiety Depression HTN (hypertension) Smoking addiction Family History Father Alcoholic Other CAD (coronary artery disease) Cancer Social History Smoking and tobacco status: current every day smoker Alcohol intake: current Course Vital Signs: Vital signs: Vital Signs Temperature 99.4 F 03/01/22 17:46 Pulse Rate 114 H 03/01/22 19:30 Respiratory Rate 18 03/01/22 19:30 Blood Pressure 144/81 03/01/22 19:30 Pulse Oximetry 98 03/01/22 19:30 MDM - Alcohol Medical Decision Making Patient presents with alcohol intoxication he is well-appearing here has had no seizure activity head CT blood work are normal besides alcohol level. Patient here is ambulatory patient discharged and is taking a cab home. Lab Data : 03/01/22 17:53 03/01/22 17:[address] 03/01/22 19:44 IMPRESSION: No acute intracranial abnormality. Laboratory Results WBC 5.6 10^3/uL (4.0-10.0) 03/01/22 17:53 RBC 5.16 10^6/uL (4.1-5.3) 03/01/22 17:53 Hgb 17.0 g/dL (11.7-16.6) H 03/01/22 17:53 Hct 48.8 % (42.0-52.0) 03/01/22 17:53 MCV 94.6 fl (80-94) H 03/01/22 17:53 MCH 32.9 pg (28.0-34.0) 03/01/22 17:53 MCHC 34.8 g/dL (30.0-36.0) 03/01/22 17:53 RDW 12.5 % (12.1-15.1) 03/01/22 17:53 Plt Count 210 10^3/cmm (130-400) 03/01/22 17:53 MPV 10.8 fL (7.4-10.4) H 03/01/22 17:53 Neut % (Auto) 46.3 % 03/01/22 17:53 Lymph % (Auto) 42.5 % 03/01/22 17:53 [place] % (Auto) 10.4 % 03/01/22 17:53 Eos % (Auto) 0.4 % 03/01/22 17:53 Baso % (Auto) 0.4 % 03/01/22 17:53 Neut # (Auto) 2.59 10^3/uL (1.8-7.7) 03/01/22 17:53 Lymph # (Auto) 2.4 10^3/uL (0.8-4.8) 03/01/22 17:53 [place] # (Auto) 0.6 10^3/uL (0.2-0.9) 03/01/22 17:53 Eos # (Auto) 0.0 10^3/uL (0.0-0.8) 03/01/22 17:53 Baso # (Auto) 0.0 10^3/uL (0.0-0.1) 03/01/22 17:53 Nucleated RBC % (auto) 0 % 03/01/22 17:53 Nucleated RBCs # 0.0 /100WBC 03/01/22 17:53 Sodium 141 mmol/L (136-145) 03/01/22 17:53 Potassium 3.1 mmol/L (3.5-5.1) L 03/01/22 17:53 Chloride 100 mmol/L (98-107) 03/01/22 17:53 Carbon Dioxide 21 mmol/L (22-29) L 03/01/22 17:53 Anion Gap 23.1 (5-19) H 03/01/22 17:53 BUN 3 mg/dL (6-20) L 03/01/22 17:53 Creatinine 0.7 mg/dL (0.7-1.2) 03/01/22 17:53 GFR Calculation 129.1 mL/min (90-130) 03/01/22 17:53 Glucose 175 mg/dL (65-115) H 03/01/22 17:53 Calculated Osmolality 293 mOsm/kg (285-295) 03/01/22 17:53 Calcium 8.9 mg/dL (8.5-10.5) 03/01/22 17:53 Magnesium 1.7 mg/dL (1.7-2.3) 03/01/22 17:53 Total Bilirubin 0.7 mg/dL (0.15-1.2) 03/01/22 17:53 AST 67 U/L (0-40) H 03/01/22 17:53 ALT 52 U/L (0-41) H 03/01/22 17:53 Alkaline Phosphatase 192 IU/L (40-130) H 03/01/22 17:53 Total Protein 7.2 g/dL (6.6-8.7) 03/01/22 17:53 Albumin 4.7 g/dL (3.5-5.2) 03/01/22 17:53 Globulin 2.5 g/dL (1.3-4.6) 03/01/22 17:53 Ethyl Alcohol 429 mg/dL (0-10) H* 03/01/22 17:53 Discharge Plan Discharge Patient Disposition: Home Clinical Impression: Alcoholic intoxication Condition: Stable Prescriptions: No Action Vitamin B-12 1 tab PO DAILY 0RF multivitamin Tablet 1 tab PO DAILY 0RF potassium chloride 10 mEq capsule, extended release 10 meq PO DAILY Qty: 20 0RF folic acid 1 mg tablet 1 mg PO DAILY Qty: 60 0RF magnesium oxide 250 mg magnesium tablet 250 mg PO DAILY Qty: 30 0RF Vitamin B-1 (mononitrate) 100 mg tablet 100 mg PO DAILY Qty: 60 0RF metoprolol tartrate 25 mg tablet 12.5 mg PO DAILY Qty: 30 2RF Discharge Orders: Discharge ED (Routine); Ordered 03/01/22 Ordered By: Sergey Nair Discharge Diet: Advance as tolerated Discharge Activity: Resume usual activity Coding Level of Care Code ED Barman for Foster Pina
[2022-03-01] MEDS: folic acid 1 MG, multivitamin inj 10 ML, thiamine 100 MG in sodium chloride 0.9% 1,000 ML 252.8 MG IV (19:10)
[2022-03-01 19:30] VITALS: BP 144/81; PULSE 114; RESP 18; O2SAT 98
--- NOTE | 2022-03-01 19:44 | CTR_ITS ---
PROCEDURE INFORMATION: Exam: CT Head Without Contrast Exam date and time: 03/01/2022 8:00 PM Age: 32 years old Clinical indication: Condition or disease; Convulsions or seizures; Other: Alcohol withdrawal; Patient HX: Fifth seizure in five months post binge drinking while withdrawing from alcohol TECHNIQUE: Imaging protocol: Computed tomography of the head without contrast. Radiation optimization: All CT scans at this facility use at least one of these dose optimization techniques: automated exposure control; mA and/or kV adjustment per patient size (includes targeted exams where dose is matched to clinical indication); or iterative reconstruction. COMPARISON: CT head wo con* [id number] 09/15/2021 1:23 PM RADIATION DOSE METRICS: Total DLP (mGy-cm): 914.42 FINDINGS: Brain: Normal. No hemorrhage. Unremarkable white matter. No mass effect. Cerebral ventricles: No ventriculomegaly. Paranasal sinuses: Visualized sinuses are unremarkable. No fluid levels. Mastoid air cells: Visualized mastoid air cells are well aerated. Bones/joints: Unremarkable. No acute fracture. Soft tissues: Unremarkable. CT/CT head wo con* [id number] IMPRESSION: No acute intracranial abnormality.
[2022-03-01 20:33] LABS: Magnesium 1.7 mg/dL (1.7-2.3)
[2022-03-01] MEDS: potassium chloride ER 20 mEq Tablet 40 MEQ PO (21:26)
[2022-03-01 21:37] VITALS: BP 142/91; PULSE 88; RESP 20; O2SAT 98
--- NOTE | 2022-03-06 21:31 | ED_ITS ---
HPI - Alcohol General: Chief Complaint: Alcohol Stated Complaint: SEIZURE/ ETOH Time Seen by Provider: 03/01/22 18:14 Source: EMS Mode of arrival: EMS Limitations: no limitations History of Present Illness: . PFSH ED PFSH: Medical History (Updated 03/05/22 @ 00:00 by ) Alcohol withdrawal Alcohol withdrawal seizure Alcohol withdrawal seizure Alcoholic intoxication Anxiety Chronic alcohol dependence, continuous Depression HTN (hypertension) Hyperammonemia Hyperbilirubinemia Hypomagnesemia Left against medical advice Obesity Smoking addiction Tobacco use disorder Transaminitis Vomiting Family History Father Alcoholic Other CAD (coronary artery disease) Cancer Social History Smoking and tobacco status: current every day smoker Alcohol intake: current Physical Exam Const: COMMON NORMALS: patient oriented x3 OTHER: intoxicated HENMT: COMMON NORMALS: normocephalic and atraumatic HEAD & SCALP: normocephalic and atraumatic Eye: COMMON NORMALS: Equal, round and reactive pupils present and EOMs intact bilaterally PUPIL: Yes Equal, round and reactive pupils present Neck/C-Spine: COMMON NORMALS: full ROM and supple Chest: COMMONS NORMALS: normal inspection of the chest and normal palpation of entire chest wall Resp: COMMON NORMALS: normal respiratory effort, No retractions, No use of accessory muscles and clear to auscultation bilaterally AUSCULTATION: clear to auscultation bilaterally Cardio: COMMON NORMALS: regular rhythm and No murmurs present (Cardio) RATE: tachycardic RHYTHM: regular rhythm GI: COMMON NORMALS: Normal to inspection, nondistended, normoactive bowel sounds present, Soft to palpation, non-tender and no masses PALPATION: Yes Soft to palpation Extremity: COMMON NORMALS: normal to inspection and full ROM Neuro: COMMON NORMALS: patient oriented x3, moves all extremities and no focal motor deficits Psych: COMMON NORMALS: mental status grossly normal, Normal thought process present and cooperative THOUGHT PROCESS: Normal thought process present Skin: COMMON NORMALS: no rashes or lesions noted and no wounds GENERAL SKIN EXAM: no rashes or lesions noted Course Vital Signs: Vital signs: Vital Signs Temperature 99.4 F 03/01/22 17:46 Pulse Rate 88 03/01/22 21:37 Respiratory Rate 20 H 03/01/22 21:37 Blood Pressure 142/91 03/01/22 21:37 Pulse Oximetry 98 03/01/22 21:37 MDM - Alcohol Medical Decision Making This is an addendum done to my note on 03/01 to complete the physical exam Lab Data : 03/01/22 17:53 03/01/22 17:[address] 03/01/22 19:44 IMPRESSION: No acute intracranial abnormality. Laboratory Results WBC 5.6 10^3/uL (4.0-10.0) 03/01/22 17:53 RBC 5.16 10^6/uL (4.1-5.3) 03/01/22 17:53 Hgb 17.0 g/dL (11.7-16.6) H 03/01/22 17:53 Hct 48.8 % (42.0-52.0) 03/01/22 17:53 MCV 94.6 fl (80-94) H 03/01/22 17:53 MCH 32.9 pg (28.0-34.0) 03/01/22 17:53 MCHC 34.8 g/dL (30.0-36.0) 03/01/22 17:53 RDW 12.5 % (12.1-15.1) 03/01/22 17:53 Plt Count 210 10^3/cmm (130-400) 03/01/22 17:53 MPV 10.8 fL (7.4-10.4) H 03/01/22 17:53 Neut % (Auto) 46.3 % 03/01/22 17:53 Lymph % (Auto) 42.5 % 03/01/22 17:53 [place] % (Auto) 10.4 % 03/01/22 17:53 Eos % (Auto) 0.4 % 03/01/22 17:53 Baso % (Auto) 0.4 % 03/01/22 17:53 Neut # (Auto) 2.59 10^3/uL (1.8-7.7) 03/01/22 17:53 Lymph # (Auto) 2.4 10^3/uL (0.8-4.8) 03/01/22 17:53 [place] # (Auto) 0.6 10^3/uL (0.2-0.9) 03/01/22 17:53 Eos # (Auto) 0.0 10^3/uL (0.0-0.8) 03/01/22 17:53 Baso # (Auto) 0.0 10^3/uL (0.0-0.1) 03/01/22 17:53 Nucleated RBC % (auto) 0 % 03/01/22 17:53 Nucleated RBCs # 0.0 /100WBC 03/01/22 17:53 Sodium 141 mmol/L (136-145) 03/01/22 17:53 Potassium 3.1 mmol/L (3.5-5.1) L 03/01/22 17:53 Chloride 100 mmol/L (98-107) 03/01/22 17:53 Carbon Dioxide 21 mmol/L (22-29) L 03/01/22 17:53 Anion Gap 23.1 (5-19) H 03/01/22 17:53 BUN 3 mg/dL (6-20) L 03/01/22 17:53 Creatinine 0.7 mg/dL (0.7-1.2) 03/01/22 17:53 GFR Calculation 129.1 mL/min (90-130) 03/01/22 17:53 Glucose 175 mg/dL (65-115) H 03/01/22 17:53 Calculated Osmolality 293 mOsm/kg (285-295) 03/01/22 17:53 Calcium 8.9 mg/dL (8.5-10.5) 03/01/22 17:53 Magnesium 1.7 mg/dL (1.7-2.3) 03/01/22 17:53 Total Bilirubin 0.7 mg/dL (0.15-1.2) 03/01/22 17:53 AST 67 U/L (0-40) H 03/01/22 17:53 ALT 52 U/L (0-41) H 03/01/22 17:53 Alkaline Phosphatase 192 IU/L (40-130) H 03/01/22 17:53 Total Protein 7.2 g/dL (6.6-8.7) 03/01/22 17:53 Albumin 4.7 g/dL (3.5-5.2) 03/01/22 17:53 Globulin 2.5 g/dL (1.3-4.6) 03/01/22 17:53 Ethyl Alcohol 429 mg/dL (0-10) H* 03/01/22 17:53 Discharge Plan Discharge Patient Disposition: Home Clinical Impression: Alcoholic intoxication Condition: Stable Prescriptions: No Action Vitamin B-12 50 mcg Tablet 50 mcg PO DAILY Qty: 0 0RF multivitamin Tablet 1 tab PO DAILY 0RF magnesium oxide 250 mg magnesium tablet 250 mg PO DAILY Qty: 30 0RF thiamine mononitrate (vit B1) [Vitamin B-1 (mononitrate)] 100 mg tablet 100 mg PO DAILY Qty: 60 0RF Keppra 500 mg tablet 500 mg PO BID Qty: 60 0RF metoprolol tartrate 25 mg tablet 25 mg PO BID Qty: 60 0RF Discharge Orders: Discharge ED (Routine); Ordered 03/01/22 Ordered By: Sergey Nair Discharge Diet: Advance as tolerated Discharge Activity: Resume usual activity Patient Instructions: Alcohol Intoxication (ED) Coding Level of Care Code ED Law Instructor for Foster Pina
== END 2022-03-01 21:55 | disposition home or self-care (01) ==
PROVIDERS: Emergency Provider Emergency Medicine
DX: F10.129 Alcohol abuse with intoxication, unspecified (principal); Y90.8 Blood alcohol level of 240 mg/100 ml or more; F17.200 Nicotine dependence, unspecified, uncomplicated
CPT/HCPCS: 70450; 80053; 80307; 83735; 85025; 96360; 96361; 99284; J3411; J3490; J7030

== ENCOUNTER 2022-03-02 19:37 | Inpatient (IN) | payer BC, SELFPAY ==
[2022-03-02] VITALS (9 sets, daily range): BP systolic 152–162; BP diastolic 94–122; PULSE 89–110; RESP 14–20; TEMP 36.8; O2SAT 97–99; BMI 27.2
--- NOTE | 2022-03-02 19:43 | ECG_ITS ---
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 Measurements Intervals [place] Rate: 101 P: 7 [place]: 146 QRS: 36 QRSD: 90 T: 42 QT: 350 QTc: 454 Interpretive Statements SINUS TACHYCARDIA Compared to ECG 12/14/2021 00:21:24 T-wave abnormality no longer present Electronically Signed On 03-02-2022 22:23:57 CDT by Haja Choudhury M.D. [email or web address]/[id number] f
--- NOTE | 2022-03-02 19:44 | W.ED.GENADLT ---
HPI - General Adult General: Chief complaint: Alcohol Stated complaint: alcohol Time Seen by Provider: 03/02/22 19:40 History of Present Illness: Patient is a 72-year-old male with history of chronic alcohol dependence who last drink was yesterday morning at 10 AM. Initially presented to the emergency room yesterday night for concerns of alcohol intoxication. Since then, patient was discharged from hospital and tells me that he has not drank since yesterday morning. Patient began having nausea vomiting, tremulousness and sweats. Patient then called EMS was brought to the emergency room. EMS initially was concerned the patient had an episode of seizure. However on reassessment, patient tells me that he did not seize did not have any fall or complaints of injury. Patient tells me that he is related to quit drinking alcohol. Patient has a prior history of cirrhosis, abdominal complaints, hematemesis, melena/hematochezia. Onset: 1 day ago Duration:1 day Location:home Severity:moderate Associated symptoms: Deny chest pain, dyspnea, nausea, rash, palpitations or vomiting Review of Systems Const: Denies: fever(s) or chills Eyes: Denies: change in vision ENMT: Denies: mouth pain Card: Denies: chest pain or palpitations Resp: Denies: dyspnea or non-productive cough GI: Denies: abdominal pain, nausea, vomiting or diarrhea : Denies: dysuria Musc: Denies: extremity pain Skin/Breast: Denies: rash or new lesions Neuro: Denies: weakness in extremities Psych: Reports: other (Normal mood) Robert/Lymph: Denies: easy bruising PFS ED PFSH: Medical History (Updated 03/03/22 @ 08:04 by Wil Rodriguez MD) Alcohol withdrawal seizure Alcohol withdrawal seizure Anxiety Chronic alcohol dependence, continuous Depression HTN (hypertension) Smoking addiction Tobacco use disorder Family History Father Alcoholic Other CAD (coronary artery disease) Cancer Social History Smoking and tobacco status: current every day smoker Alcohol intake: current Physical Exam Const: COMMON NORMALS: alert HENMT: COMMON NORMALS: atraumatic HEAD & SCALP: atraumatic MOUTH: moist mucous membranes not abnormal Eye: COMMON NORMALS: EOMs intact bilaterally and conjunctivae normal CONJUNCTIVA: Yes conjunctivae normal Neck/C-Spine: COMMON NORMALS: full ROM and supple Resp: COMMON NORMALS: normal respiratory effort and clear to auscultation bilaterally AUSCULTATION: clear to auscultation bilaterally Cardio: COMMON NORMALS: regular rate RATE: regular rate GI: COMMON NORMALS: Soft to palpation and non-tender PALPATION: Yes Soft to palpation Extremity: COMMON NORMALS: full ROM Neuro: SENSORIUM/ORIENTATION: Yes alert MOTOR EXAM: No Abnormal motor strength present and Other motor observations present (no focal motor deficits) Psych: COMMON NORMALS: speech normal SPEECH: Yes normal speech MOOD & AFFECT: Yes euthymic mood Course Vital Signs: Vital signs: Vital Signs Temperature 98.1 F 03/03/22 14:59 Pulse Rate 85 03/03/22 14:59 Respiratory Rate 17 03/03/22 14:59 Blood Pressure 141/94 03/03/22 14:59 Pulse Oximetry 96 03/03/22 14:59 MDM - General Adult Medical Decision Making 32-year male presenting to the emergency room with concerns for alcohol withdrawal. Physical exam, patient mildly tachycardic to the low 100s tremulous in all extremities. Lab work-up within normal and purulent drink was yesterday morning. Patient tells me that he is very motivated to quit drinking. Patient received 320mg of phenobarbital and 1L of NS. He was observed in the emergency room and noted to have some improvemnt in withdraw symptoms. Patient still reports significant nausea or vomiting and upon movement, also noted to be moderately tremulousness. Patient will be admitted to hospital for alcohol withdrawal work-up. Disposition: admission Lab Data : 03/02/22 19:55 03/03/22 06:38 Radiology Impressions Abdomen Ultrasound 03/03/22 00:01 IMPRESSION: 1. Hepatomegaly and fatty liver. 2. No gallstones. Laboratory Results WBC 4.2 10^3/uL (4.0-10.0) 03/02/22 19:55 RBC 4.92 10^6/uL (4.1-5.3) 03/02/22 19:55 Hgb 16.0 g/dL (11.7-16.6) 03/02/22 19:55 Hct 46.7 % (42.0-52.0) 03/02/22 19:55 MCV 94.9 fl (80-94) H 03/02/22 19:55 MCH 32.5 pg (28.0-34.0) 03/02/22 19:55 MCHC 34.3 g/dL (30.0-36.0) 03/02/22 19:55 RDW 12.5 % (12.1-15.1) 03/02/22 19:55 Plt Count 144 10^3/cmm (130-400) D 03/02/22 19:55 MPV 10.3 fL (7.4-10.4) 03/02/22 19:55 Neut % (Auto) 76.1 % 03/02/22 19:55 Lymph % (Auto) 18.2 % 03/02/22 19:55 [place] % (Auto) 5.3 % 03/02/22 19:55 Eos % (Auto) 0.0 % 03/02/22 19:55 Baso % (Auto) 0.2 % 03/02/22 19: Neut # (Auto) 3.17 10^3/uL (1.8-7.7) 03/02/22 19:55 Lymph # (Auto) 0.8 10^3/uL (0.8-4.8) 03/02/22 19:55 [place] # (Auto) 0.2 10^3/uL (0.2-0.9) 03/02/22 19:55 Eos # (Auto) 0.0 10^3/uL (0.0-0.8) 03/02/22 19: Baso # (Auto) 0.0 10^3/uL (0.0-0.1) 03/02/22 19:55 Nucleated RBC % (auto) 0 % 03/02/22 19: Nucleated RBCs # 0.0 /100WBC 03/02/22 19:55 Sodium 138 mmol/L (136-145) 03/02/22 19:55 Potassium 4.0 mmol/L (3.5-5.1) 03/02/22 19:55 Chloride 99 mmol/L (98-107) 03/02/22 19:55 Carbon Dioxide 17 mmol/L (22-29) L 03/02/22 19:55 Anion Gap 26.0 (5-19) H 03/02/22 19:55 BUN 4 mg/dL (6-20) L 03/02/22 19:55 Creatinine 0.6 mg/dL (0.7-1.2) L 03/02/22 19:55 GFR Calculation 154.2 mL/min (90-130) H 03/02/22 19:55 Glucose 141 mg/dL (65-115) H 03/02/22 19:55 Calculated Osmolality 285 mOsm/kg (285-295) 03/02/22 19:55 Calcium 8.9 mg/dL (8.5-10.5) 03/02/22 19:55 Phosphorus 3.2 mg/dL (2.5-4.5) 03/02/22 19:55 Magnesium 1.0 mg/dL (1.7-2.3) L 03/02/22 19:55 Total Bilirubin 1.3 mg/dL (0.15-1.2) H 03/02/22 19:55 AST 77 U/L (0-40) H 03/02/22 19:55 ALT 50 U/L (0-41) H 03/02/22 19:55 Alkaline Phosphatase 196 IU/L (40-130) H 03/02/22 19:55 Total Protein 7.0 g/dL (6.6-8.7) 03/02/22 19:55 Albumin 4.4 g/dL (3.5-5.2) 03/02/22 19:55 Globulin 2.6 g/dL (1.3-4.6) 03/02/22 19:55 Lipase 15 U/L (13-60) 03/02/22 19:55 Vitamin B12 1008 pg/mL (232-1245) 03/02/22 19:55 Folate 7.0 ng/mL (4.5-32.2) 03/02/22 19:55 TSH 1.14 uIU/mL (0.27-4.20) 03/02/22 19:55 Free T4 0.98 ng/dL (0.82-1.77) 03/02/22 19:55 Ethyl Alcohol < 10 mg/dL (0-10) 03/02/22 20:23 Discharge Plan Discharge Patient Disposition: Admitted As Inpatient Admit Provider: Aleksandr Carolina Clinical Impression: Alcohol withdrawal, Vomiting Condition: Stable Coding Level of Care Code ED Animal Nurse for Chg Fwd Exam Comprehensive
[2022-03-02 20:01] LABS: Basophils % 0.2 %; Hematocrit 46.7 % (42.0-52.0); Lymphocytes # 0.8 10^3/uL (0.8-4.8); Lymphocytes % 18.2 %; Mean Corpuscular HGB Conc 34.3 g/dL (30.0-36.0); Mean Corpuscular Hemoglobin 32.5 pg (28.0-34.0); Mean Corpuscular Volume 94.9 fl (80-94); Mean Platelet Volume 10.3 fL (7.4-10.4); Monocytes # 0.2 10^3/uL (0.2-0.9); Monocytes % 5.3 %; Neutrophils # 3.17 10^3/uL (1.8-7.7); Neutrophils % 76.1 %; Nucleated Red Blood Cells % 0 %; Platelet Count 144 10^3/cmm (130-400); Red Blood Count 4.92 10^6/uL (4.1-5.3); Red Cell Distribution Width 12.5 % (12.1-15.1); White Blood Count 4.2 10^3/uL (4.0-10.0)
[2022-03-02] MEDS: sodium chloride 0.9% 1,000 ML 999 ML IV ×2 (20:05→22:46)
[2022-03-02] MEDS: PHENobarbital 130 mg/mL SDV 1 mL 360 MG IV (20:07)
[2022-03-02 20:26] LABS: Alanine Aminotransferase 50 U/L (0-41); Albumin Level 4.4 g/dL (3.5-5.2); Alkaline Phosphatase 196 IU/L (40-130); Aspartate Amino Transferase 77 U/L (0-40); Blood Urea Nitrogen 4 mg/dL (6-20); Calcium 8.9 mg/dL (8.5-10.5); Carbon Dioxide 17 mmol/L (22-29); Chloride 99 mmol/L (98-107); Globulin 2.6 g/dL (1.3-4.6); Glomerular Filtration Rate 154.2 mL/min (90-130); Glucose 141 mg/dL (65-115); Lipase 15 U/L (13-60); Osmolality Calculated 285 mOsm/kg (285-295); Sodium 138 mmol/L (136-145); Total Bilirubin 1.3 mg/dL (0.15-1.2)
[2022-03-02 21:10] LABS: Alcohol Level < 10 mg/dL (0-10)
[2022-03-02] MEDS: ondansetron 2 mg/ML SDV 2 mL 4 MG IVP (22:15)
--- NOTE | 2022-03-02 22:24 | PM.HP ---
Providers/Chief Complaint Chief Complaint: alcohol History of Present Illness The patient is a 32-year-old male with known history of alcohol abuse requiring numerous hospitalizations for alcohol withdrawal who presents with chief complaint of alcohol withdrawal. He states that his symptoms of withdrawal have worsened and the hours leading up to his hospitalization. He states that his last alcohol intake was on the morning of March 01, 2022. Indicates that he would like to stop drinking and that he does not have any issues with access to alcohol. He missed onset of nausea and vomiting. He denies fever, rigors, abdominal pain. He indicates that he?s been to rehabilitation twice and completed the entire course. He presents for further evaluation Review of Systems General: Reports: 10 or more systems reviewed and unremarkable except in HPI and below Medications/Allergies Home Medications Medication Instructions Recorded Confirmed Last Taken Type Vitamin B-12 1 tab PO DAILY 09/15/21 12/14/21 Unknown History multivitamin 1 tab PO DAILY 09/27/21 12/14/21 Unknown History folic acid 1 mg tablet 1 mg PO DAILY #60 tab 12/15/21 12/14/21 Unknown Rx magnesium oxide 250 mg PO DAILY #30 tab 12/15/21 12/14/21 Unknown Rx metoprolol tartrate 25 mg tablet 12.5 mg PO DAILY #30 tab 12/15/21 Unknown Rx potassium chloride 10 mEq 10 meq PO DAILY #20 cap 12/15/21 12/14/21 Unknown Rx capsule,extended release thiamine mononitrate (vit B1) 100 100 mg PO DAILY #60 tab 12/15/21 12/14/21 Unknown Rx mg tablet (Vitamin B-1 (mononitrate)) Allergies Allergy/AdvReac Type Severity Reaction Status Date / Time No Known Allergies Allergy Verified 12/14/21 10:18 PFSH Acute PFSH: Medical History Alcohol withdrawal seizure Alcohol withdrawal seizure Anxiety Chronic alcohol dependence, continuous Depression HTN (hypertension) Smoking addiction Family History Father Alcoholic Other CAD (coronary artery disease) Cancer Social History Smoking and tobacco status: current every day smoker Alcohol intake: current Vitals/I&O/Wt Last Vital Signs Temp 98.3 F 03/02/22 19:38 Pulse 103 H 03/02/22 20:44 Resp 15 03/02/22 20:44 BP 156/112 03/02/22 20:44 Pulse Ox 97 03/02/22 20:44 Weight last 48 hrs Weight 86.183 kg Physical Exam Narrative: General: -Alert -No acute distress -No dyspnea -No tachypnea Head: -Atraumatic -Normocephalic Eyes: -Pupils equally round and reactive to light and accommodation -Extraocular muscles intact Neurological: -Cranial nerves II-XII intact Neck: -No jugular venous distention -No thyromegaly -No cervical lymphadenopathy Heart: -Regular rate -Regular rhythm -No murmurs -No gallops -No rubs Lungs: -No wheeze -No rhonchi -No rales ? Abdomen: -Normal bowel sounds in all four quadrants -No rebound -No guarding -No tenderness Extremities: -2/4 pulse in all four extremities -No clubbing -No cyanosis -No edema -No calf tenderness present bilaterally -Negative Charles?s sign bilaterally Musculoskeletal: -5/5 bilateral upper extremity strength -5/5 bilateral lower extremity strength -Sensorium of bilateral upper extremities are equal and intact -Sensorium of bilateral lower extremities are equal and intact ? Additional Details / Additional Findings / Exceptions / Miscellaneous: Data : 03/02/22 19:55 03/02/22 19:55 A&P Assessment and plan (1) Alcoholic intoxication: Status: Acute Plan alcohol abuse with alcohol withdrawal. Case management consult pending for referral for alcohol or rehabilitation. Seizure precautions. IV normal saline 100 ML's per hour plus IV when necessary Ativan on a sliding scale. Vitamin B12 1000 my grams by mouth daily plus thiamine 100 Mill grams by mouth daily plus folic acid 1 Mill grams by mouth daily plus multivitamin 1 tablet by mouth daily Chronically elevated liver function test. This is likely enrollment eligibility representative of alcoholic hepatitis. Will monitor LFTs periodically with CMP along with PT/INR. Right upper quadrant ultrasound pending. IV normal saline 100 ML's per hour Hypomagnesemia. Will monitor magnesium level intermittently and supplements necessary. Telemetry monitoring History of hyperammonemia. Ammonia level pending Macrocytosis. Check TSH, free T4, B12, folate level Hypertension Obesity. The patient will be counseled regarding lifestyle medication Smoker. The patient will be counseled regarding smoking cessation Hepatic steatosis Anxiety Depression History of leaving AGAINST MEDICAL ADVICE History of medical noncompliance as witnessed by patient leaving AGAINST MEDICAL ADVICE. The patient will be counseled regarding medical compliance DVT Proflex is. Bilateral SCD Attestations Medical Necessity Statement*: patient's anticipate length of stay is greater than 2 midnights for alcohol withdrawal Coding Level of Care Code Acute Process Architect for g Fwd Diagnoses Alcoholic intoxication F10.929
[2022-03-02 22:57] LABS: Free T4 Free Thyroxine 0.98 ng/dL (0.82-1.77); Phosphorus 3.2 mg/dL (2.5-4.5); Thyroid Stimulating Hormone 1.14 uIU/mL (0.27-4.20)
[2022-03-02 23:47] LABS: Vitamin B12 1008 pg/mL (232-1245)
[2022-03-03] VITALS (9 sets, daily range): BP systolic 135–169; BP diastolic 94–115; PULSE 85–106; RESP 16–18; TEMP 36.7–37; O2SAT 94–98; BMI 28.7
--- NOTE | 2022-03-03 00:01 | USR_ITS ---
PROCEDURE INFORMATION: Exam: US Abdomen, Limited; Right Upper Quadrant Exam date and time: 03/03/2022 12:33 AM Age: 32 years old Clinical indication: Abnormal findings; Abnormal lab test; Elevated liver enzymes; Additional info: Ruq US: Elevated lft TECHNIQUE: Imaging protocol: US abdomen. Real time ultrasound with image documentation. Limited exam focused on the right upper quadrant. COMPARISON: US liver [id number] 03/11/2021 5:12 PM FINDINGS: Liver: There is diffusely increased echogenicity in the liver consistent with fatty change. There is mild enlargement of the liver. Liver measures approximately 20 cm in height. There is no focal abnormality in the liver. Gallbladder: Gallbladder is normal. There is no gallstone. There is no gallbladder wall thickening or pericholecystic fluid. Gallbladder wall measures less than 3 mm. Biliary ducts: Common bile duct measures 2 mm. There is no intrahepatic biliary tract dilatation. Pancreas: Visualized portions of the pancreas are unremarkable. Right kidney: Kidney measures 10.8 x 5.7 x 5.5 cm with normal cortical thickness and echogenicity. There is no hydronephrosis. Portal venous: Flow in the portal vein is in the normal direction. US/US abdomen limited [id number] IMPRESSION: 1. Hepatomegaly and fatty liver. 2. No gallstones.
[2022-03-03] MEDS: LORazepam 2 mg/mL INJ 1 mL IVP ×2 (00:44→05:13)
[2022-03-03] MEDS: hyDRALAzine 20 mg/mL INJ 1 mL 10 MG IVP (00:45)
[2022-03-03] MEDS: sodium chloride 0.9% 1,000 ML 999 ML IV (00:45)
[2022-03-03] MEDS: magnesium sulfate premix 4 GM/100 ML PREMIX IV (01:27)
[2022-03-03] MEDS: sodium chloride 0.9% 1,000 ML 100 ML IV ×2 (04:31→14:42)
[2022-03-03 07:05] LABS: Ammonia 125 umol/L (16-60)
[2022-03-03 07:46] LABS: Alanine Aminotransferase 37 U/L (0-41); Albumin Level 3.6 g/dL (3.5-5.2); Alkaline Phosphatase 172 IU/L (40-130); Anion Gap 16.2 (5-19); Aspartate Amino Transferase 65 U/L (0-40); Blood Urea Nitrogen 2 mg/dL (6-20); Calcium 7.9 mg/dL (8.5-10.5); Carbon Dioxide 21 mmol/L (22-29); Chloride 101 mmol/L (98-107); Glomerular Filtration Rate 154.2 mL/min (90-130); Glucose 94 mg/dL (65-115); Magnesium 1.8 mg/dL (1.7-2.3); Osmolality Calculated 276 mOsm/kg (285-295); Potassium 3.2 mmol/L (3.5-5.1); Sodium 135 mmol/L (136-145); Total Bilirubin 1.2 mg/dL (0.15-1.2); Total Protein 5.6 g/dL (6.6-8.7)
--- NOTE | 2022-03-03 07:52 | PM.PN ---
Subjective Subjective: Patient required IV Ativan overnight. This morning, he endorses continued withdrawal symptoms. Endorses episodes of tremulous and sweats. Denies chest pain, shortness of breath, abdominal pain, chills or fevers. Endorses desire to quit drinking alcohol. He reports he continues to smoke. Reports smoking a pack of cigarettes per day. Smoking cessation discussed. Discussed harmful effects of smoking on his health and advised cessation. Discussed possible treatment options. He denies active cravings. He reports while in the hospital or another place where he cannot smoke, he generallly does not develop craving for smoking. He reports he is unsure if he really wants to quit smoking. He declined nicotine replacement treatment. Medications: Reviewed: Yes Vitals/I&O/Wt Last Vital Signs Temp 98.1 F 03/03/22 07:36 Pulse 86 03/03/22 07:36 Resp 18 03/03/22 07:36 BP 143/98 03/03/22 07:36 Pulse Ox 98 03/03/22 07:36 03/02/22 03/03/22 03/03/22 22:59 06:59 14:59 Intake Total 1000 / 1000 2380 / 3380 Output Total 300 / 300 Balance 1000 / 1000 2080 / 3080 Weight last 48 hrs Weight 90.718 kg Weight 58.922 kg Weight 90.718 kg Weight 90.718 kg Weight 86.183 kg Physical Exam Narrative: General: Patient is awake. Appears very fatigued. Head: Normocephalic. Atraumatic. EOM intact. Neck: No JVD. Cardiovascular: RRR. No gallops. No murmurs. No peripheral edema. Lungs: Clear to auscultation, no use of accessory muscles, no crackles or wheezes. Skin: No jaundice. No rashes. Abdomen: Normal bowel sounds, abdomen soft and nontender. Genito Urinary: Genital exam not performed since complaints not related. Rectal: Rectal exam not performed since no symptoms indicated blood loss. Extremeties: No cyanosis or clubbing. Musculoskeletal: No swollen or erythematous joints. Neurological: Moves all 4 extremities. No myoclonus. Data : 03/02/22 19:55 03/03/22 06:38 A&P Assessment and plan (1) Alcohol withdrawal: -Patient in acute alcohol withdrawal in the setting of chronic alcohol use disorder with history of alcohol withdrawal seizures -Status post phenobarbital?in ED -Required IV ativan overnight -Continue CIWA protocol -Seizure precautions -Case management consultation -Continue folic acid, thiamine, and multivitamin -Zofran as needed for nausea/emesis -Hydralazine PRN -Continue IV fluids Status: Acute (2) Hypomagnesemia: -Replete with IV magnesium sulfate Status: Acute (3) Hypokalemia: -Telemetry monitoring -Replace with IV potassium Status: Resolved (4) Hyperbilirubinemia: -2/2 alcohol use -RUQ US c/w fatty liver disease Status: Acute (5) Transaminitis: -2/2 alcohol use -Continue to monitor Status: Acute (6) Tobacco use disorder: -Smoking cessation counseling provided for >10 minutes -Declined NRT Status: Acute (7) Hyperammonemia: -2/2 ETOH use and fatty liver Status: Acute (8) Obesity: -Would benefit from weight loss Status: Acute (9) Left against medical advice: -History of AMA -Encourage adherence to treatment Status: Acute Plan DVT ppx: Lovenox Attestations Medical Necessity Statement*: Patient admitted for acute alcohol withdrawal with significant electrolyte abnormalities requiring IV benzodiapines and IV electrolyte corrections for which he requires continued hospitalizaion. Coding Level of Care Code Acute Actionscript Developer for Foster Pina Diagnoses Alcohol withdrawal F10.239 Tobacco use disorder F17.200 Hyperbilirubinemia E80.6 Transaminitis R74.01 Hypomagnesemia E83.42 Hypokalemia E87.6 Hyperammonemia E72.20 Obesity E66.9 Left against medical advice Z53.29
[2022-03-03] MEDS: multivitamin therapeutic Tablet 1 TAB PO (08:52)
[2022-03-03] MEDS: folic acid 1 mg Tablet PO (08:52)
[2022-03-03] MEDS: thiamine 100 mg Tablet PO (08:52)
[2022-03-03] MEDS: cyanocobalamin 1,000 mcg Tablet 1000 MCG PO (08:55)
[2022-03-03] MEDS: potassium chloride premix 100 ML 25 MEQ IV (08:58)
--- NOTE | 2022-03-03 09:47 | PC.CHAP ---
Pastoral Care Encounter/Spiritual Assessment Type of Contact [] Declined data control assistant visit [] Patient/Family/Request visit [] Outpatient visit [] Follow-up visit [] Physician referral [] Code/Alert [x] Routine visit [] Staff referral [] Actively dying [x] Patient sleeping [] Family support [] [] Out of room [] Palliative care [] [] Receiving care in room [] Pre-surgical visit [] Trauma [] Long length of stay [] ICU visit [] Other: Relational/Emotional Strength [] Patient feels connected with others/family/visitors/staff [] Distress [] Loneliness/isolation [] Abandonment Spirituality of Patient [] Person of Nilsa [] Attends Church of their Nilsa [] Believes in Prayer [] Reads Bible or Church materials [] There are Spiritual issues to be addressed Adult High School Instructor Interventions [] Prayer [] Active listening [] Non-anxious presence [] Spiritual/emotional support [] Crisis/trauma care [] Spiritual counseling [] Bereavement support [] Provided bereavement packet [] Provided Bible/devotional materials [] Provided toy/stuffed animal, coloring book to patient or family member [] Provided Communion [] Anointing/[place] [] Salvation [] Completed spiritual assessment [] Other: Impact on Illness or Injury [] Angry [] Fearful [] Anxious [] Often cries [] Exhaustion [] Unable to work [] Unable to attend christian [] Unable to walk/stand [] Unable to read [] Unable to drive [] Unable to eat/drink [] Unable to sleep [] Unable to be with family [] Patient intubated [] Other: Summary Time spent with patient
[2022-03-03] MEDS: enoxaparin 40 mg/0.4 mL Syringe SUBCUT (20:54)
[2022-03-04] VITALS: BP 137/94; PULSE 87; RESP 19; TEMP 37.3; O2SAT 98
[2022-03-04] MEDS: sodium chloride 0.9% 1,000 ML 100 ML IV (01:34)
[2022-03-04 04:00] VITALS: BP 130/92; PULSE 65; RESP 16; TEMP 37.3; O2SAT 98
[2022-03-04 06:00] VITALS: PULSE 78
--- NOTE | 2022-03-04 07:13 | P.DS_ITS ---
Discharge Providers Date of Admission: 03/02/22 22:19 Date of Discharge: March 04, 2022 Attending Provider at Admission: Aleksandr Carolina DO Attending Provider at Discharge: Wil Rodriguez MD Diagnoses at Discharge Discharge Diagnosis (1) Alcohol withdrawal: Status: Acute (2) Hypomagnesemia: Status: Acute (3) Hypokalemia: Status: Resolved (4) Hyperbilirubinemia: Status: Acute (5) Transaminitis: Status: Acute (6) Tobacco use disorder: Status: Acute (7) Hyperammonemia: Status: Acute (8) Obesity: Status: Acute (9) Left against medical advice: Status: Acute Reason for Visit Reason for Visit: alcohol Hospital Course Hospital Course Dave Gaston is a 32-year-old male with a past medical history significant for alcohol use disorder, alcohol withdrawal seizures, anxiety, depression, obesity, and tobacco use disorder who presents the emergency department with alcohol withdrawal symptoms, found to have alcohol withdrawal with multiple metabolic derangements including hypomagnesia, hypokalemia, hyperammonemia, and transaminitis. He was treated with IV fluids, electrolyte replacement, Ativan per CIWA protocol, tobacco cessation counseling, and alcohol cessation coun seling. Alcohol withdrawal symptoms resolved patient was discharged home in stable condition. He is to follow-up with [facility] behavioral [facility] as well as AA. Physical Exam Narrative: General: Patient is awake and alert. Head: Normocephalic. Atraumatic. EOM intact. Neck: No JVD. Cardiovascular: RRR. No gallops. No murmurs. No peripheral edema. Lungs: Clear to auscultation, no use of accessory muscles, no crackles or wheezes. Skin: No jaundice. No rashes. Abdomen: Normal bowel sounds, abdomen soft and nontender. Genito Urinary: Genital exam not performed since complaints not related. Rectal: Rectal exam not performed since no symptoms indicated blood loss. Extremeties: No cyanosis or clubbing. Musculoskeletal: No swollen or erythematous joints. Neurological: Moves all 4 extremities. No myoclonus. Discharge Data Studies Completed and Pending Completed Studies During Hospitalization Category Date Time Status US abdomen limited [id number] Urgent Ultrasound 03/03/22 00:01 Completed Pending at discharge Category Date Time Status Magnesium Routine Lab 03/04/22 05:56 Ordered Renal Function Panel Routine Lab 03/04/22 05:56 Ordered Radiology Impressions Abdomen Ultrasound 03/03/22 00:01 IMPRESSION: 1. Hepatomegaly and fatty liver. 2. No gallstones. Laboratory Results WBC 4.2 10^3/uL (4.0-10.0) 03/02/22 19:55 RBC 4.92 10^6/uL (4.1-5.3) 03/02/22 19:55 Hgb 16.0 g/dL (11.7-16.6) 03/02/22 19:55 Hct 46.7 % (42.0-52.0) 03/02/22 19:55 MCV 94.9 fl (80-94) H 03/02/22 19:55 MCH 32.5 pg (28.0-34.0) 03/02/22 19:55 MCHC 34.3 g/dL (30.0-36.0) 03/02/22 19:55 RDW 12.5 % (12.1-15.1) 03/02/22 19:55 Plt Count 144 10^3/cmm (130-400) D 03/02/22 19:55 MPV 10.3 fL (7.4-10.4) 03/02/22 19:55 Neut % (Auto) 76.1 % 03/02/22 19:55 Lymph % (Auto) 18.2 % 03/02/22 19:55 [place] % (Auto) 5.3 % 03/02/22 19:55 Eos % (Auto) 0.0 % 03/02/22 19:55 Baso % (Auto) 0.2 % 03/02/22 19:55 Neut # (Auto) 3.17 10^3/uL (1.8-7.7) 03/02/22 19:55 Lymph # (Auto) 0.8 10^3/uL (0.8-4.8) 03/02/22 19:55 [place] # (Auto) 0.2 10^3/uL (0.2-0.9) 03/02/22 19:55 Eos # (Auto) 0.0 10^3/uL (0.0-0.8) 03/02/22 19:55 Baso # (Auto) 0.0 10^3/uL (0.0-0.1) 03/02/22 19:55 Nucleated RBC % (auto) 0 % 03/02/22 19:55 Nucleated RBCs # 0.0 /100WBC 03/02/22 19:55 PT 14.50 SECONDS (12.1-14.9) 03/02/22 23:55 INR 1.10 (0.8-1.2) 03/02/22 23:55 Sodium Cancelled 03/04/22 05:10 Potassium Cancelled 03/04/22 05:10 Chloride Cancelled 03/04/22 05:10 Carbon Dioxide Cancelled 03/04/22 05:10 Anion Gap Cancelled 03/04/22 05:10 BUN Cancelled 03/04/22 05:10 Creatinine Cancelled 03/04/22 05:10 GFR Calculation Cancelled 03/04/22 05:10 Glucose Cancelled 03/04/22 05:10 Calculated Osmolality 276 mOsm/kg (285-295) L 03/03/22 06:38 Calcium Cancelled 03/04/22 05:10 Phosphorus Cancelled 03/04/22 05:10 Magnesium Cancelled 03/04/22 05:10 Total Bilirubin 1.2 mg/dL (0.15-1.2) 03/03/22 06:38 AST 65 U/L (0-40) H 03/03/22 06:38 ALT 37 U/L (0-41) 03/03/22 06:38 Alkaline Phosphatase 172 IU/L (40-130) H 03/03/22 06:38 Ammonia 125 umol/L (16-60) H 03/03/22 06:35 Total Protein 5.6 g/dL (6.6-8.7) L 03/03/22 06:38 Albumin Cancelled 03/04/22 05:10 Globulin 2.0 g/dL (1.3-4.6) 03/03/22 06:38 Lipase 15 U/L (13-60) 03/02/22 19:55 Vitamin B12 1008 pg/mL (232-1245) 03/02/22 19:55 Folate 7.0 ng/mL (4.5-32.2) 03/02/22 19:55 TSH 1.14 uIU/mL (0.27-4.20) 03/02/22 19:55 Free T4 0.98 ng/dL (0.82-1.77) 03/02/22 19:55 Ethyl Alcohol < 10 mg/dL (0-10) 03/02/22 20:23 Vitals Last Vital Signs Temp 99.1 F 03/04/22 04:00 Pulse 78 03/04/22 06:00 Resp 16 03/04/22 04:00 BP 130/92 03/04/22 04:00 Pulse Ox 98 03/04/22 04:00 Discharge Plan Discharge Patient Disposition: Home Condition: Stable Prescriptions: New Keppra 500 mg tablet 500 mg PO BID Qty: 60 0RF Continued Vitamin B-12 50 mcg Tablet 50 mcg PO DAILY Qty: 0 0RF multivitamin Tablet 1 tab PO DAILY 0RF magnesium oxide 250 mg magnesium tablet 250 mg PO DAILY Qty: 30 0RF thiamine mononitrate (vit B1) [Vitamin B-1 (mononitrate)] 100 mg tablet 100 mg PO DAILY Qty: 60 0RF Discharge Orders: Discharge Order (Routine); Ordered 03/04/22 Ordered By: Wil Rodriguez Referrals: [facility] [Outside] (Follow up as a walk in at [facility], walk in hours are Sunday-Sunday from 7:30AM-3:00PM, first come, first seen. Once you do this assessment you will be referred for appropriate services.) Discharge Diet: Regular Discharge Activity: Increase activity as tolerated Patient Instructions: Opioid Safety Activity Restrictions/Additional Instructions: Recommend follow up with AA discussed with patient. Follow up with [facility]. No driving until released by [facility]. Discharge Attestations Time Spent in Discharge Care*: greater than 30 min Quality Metrics Clinical Quality Measures [ No reported AMI, CVA or VTE this stay] Coding Level of Care Code Acute Chg FW DC note Diagnoses Alcohol withdrawal F10.239 Hypomagnesemia E83.42 Hypokalemia E87.6 Hyperbilirubinemia E80.6 Transaminitis R74.01 Tobacco use disorder F17.200 Hyperammonemia E72.20 Obesity E66.9 Left against medical advice Z53.29
[2022-03-04 07:37] VITALS: BP 155/115; PULSE 106; RESP 12; TEMP 37.2; O2SAT 96
[2022-03-04] MEDS: thiamine 100 mg Tablet PO (08:03)
[2022-03-04] MEDS: folic acid 1 mg Tablet PO (08:03)
[2022-03-04] MEDS: multivitamin therapeutic Tablet 1 TAB PO (08:04)
[2022-03-04] MEDS: cyanocobalamin 1,000 mcg Tablet 1000 MCG PO (08:04)
[2022-03-04] MEDS: metoprolol tartrate 25 mg Tablet PO (08:37)
== END 2022-03-04 10:24 | disposition home or self-care (01) | DRG 897 ==
LOC: ER 22:25 → MEDSURG 22:38
PROVIDERS: Emergency Medicine; Admitting Provider Internal Medicine; Emergency Provider Emergency Medicine; Visit Provider Internal Medicine
DX: F10.239 Alcohol dependence with withdrawal, unspecified (principal); K70.10 Alcoholic hepatitis without ascites; F41.9 Anxiety disorder, unspecified; F32.A Depression, unspecified; I10 Essential (primary) hypertension; F17.200 Nicotine dependence, unspecified, uncomplicated; E83.42 Hypomagnesemia; E66.9 Obesity, unspecified; Z68.28 Body mass index [BMI] 28.0-28.9, adult; K76.0 Fatty (change of) liver, not elsewhere classified; E87.6 Hypokalemia
CPT/HCPCS: 36415; 76705; 80053; 80307; 82140; 82607; 82746; 83690; 83735; 84100; 84439; 84443; 85025; 85610; 93005; 96361; 96372; 96374; 96375; 99285; J0360; J1650; J2060; J2405; J3475; J3480; J7030

== ENCOUNTER → 2022-08-01 10:50 | Outpatient (BNVA) | payer BC, SELFPAY | PROVIDERS: PCP Family Medicine; Visit Provider Clinical Nurse Specialist Adult Health | DX: J02.8 Acute pharyngitis due to other specified organisms (principal); J06.9 Acute upper respiratory infection, unspecified | CPT/HCPCS: 87071; 87880 ==

== ENCOUNTER → 2022-11-15 08:03 | Outpatient (BNVA) | payer BC, SELFPAY | PROVIDERS: PCP Clinical Nurse Specialist Adult Health; Visit Provider Clinical Nurse Specialist Adult Health | DX: E87.1 Hypo-osmolality and hyponatremia (principal); F32.9 Major depressive disorder, single episode, unspecified; R17 Unspecified jaundice; F10.930 Alcohol use, unspecified with withdrawal, uncomplicated; R56.9 Unspecified convulsions; R74.01 Elevation of levels of liver transaminase levels; F32.5 Major depressive disorder, single episode, in full remission | CPT/HCPCS: 80053; 82607; 84425; 85025 ==